=== PATIENT | female | born 1970 | race Caucasian/White ===

== ENCOUNTER 2017-03-28 13:28 | Emergency (ER) | payer MEDICAID ==
[~2017-03-28] VITALS: Ht 175.3 cm; Wt 86.6 kg
[~2017-03-28 13:28] MED LIST: ALBUTEROL-200 PUFFS/ IH; BACTRIM DS 8001 TAB PO; BENADRYL 25MG C25 MG PO; BUSPAR 10MG TAB10 MG PO; CIPRO 500MG TA500 MG PO; CLARITIN10 MG OR; COLACE GENERIC100 MG PO; DARVOCET-N 1001 EACH PO; FLAGYL500 MG PO; KEFLEX 500MG.500 MG PO; LORTAB 5/500 501 TAB PO; LORTAB 7.5/3251 TAB PO; MEDROL 4MG. DOSE4 MG PO; MIRALAX17 GM/PACK PO; MOTRIN 400MG.400 MG PO; NICOTINE T21 MG/24 H TD; NORCO 325 MG-51 TAB PO; PHENERGAN 25MG.25 MG PR; SEPTRA DS 800 M1 TAB PO; TESSALON PERLE100 MG PO; ULTRAM 50 MG TA50 MG PO; VALIUM 10MG TAB10 MG PO; VICODIN 5/500 T1 TAB PO; XANAX 1MG TABLET1 MG PO; ZITHROMAX 250M250 MG PO; ZITHROMAX Z PA250 MG PO
--- OUTSIDE RECORDS SUMMARY | 2017-03-28 13:42 | External Medical Summary Rpt ---
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 Name Role Phone EULALIO BALDWIN PCP [phone] Encounter [facility] [id number] Date(s): 04/20/16 - 04/21/16 [facility] [address] [place] [address]- Discharge Diagnosis: Low back pain Discharge Diagnosis: Osteoarthritis Discharge Diagnosis: Acute UTI Discharge Diagnosis: Musculoskeletal strain Discharge Diagnosis: Radiculopathy Discharge Diagnosis: Leg pain Discharge Disposition: OP Self Care or Home Attending Physician: TAYO PATEL MD Admitting Physician: TAYO PATEL MD Referring Physician: TAYO PATEL MD Reason for Visit BOTH LEGS FROM KNEES DOWN PAIN Vital Signs Most recent 1 2 to oldest [Reference Range]: Temperature Oral Source (04/20/16 9:39 PM) Temperature Fahrenheit Mode (04/20/16 9:39 PM) Temperature, 96.1 Deg F Fahrenheit *LOW* [96.8-99.7 (04/20/16 9:39 PM) Deg F] Clinical 35.6 Deg C Temperature, (04/20/16 9:39 PM) C Peripheral 103 bpm Pulse Rate *HI* [60-100 bpm] (04/20/16 9:39 PM) Respiratory 18 Breaths/Min 18 Breaths/Min Rate [14-20 (04/21/16 3:51 AM) (04/20/16 9:39 PM) Breaths/Min] Blood 131/83 mmHg Pressure (04/20/16 9:39 PM) [90-140/60-9 0 mmHg] Oxygen 98 % Saturation (04/20/16 9:39 PM) [94-100 %] Oxygen Room air Room air Therapy Mode (04/21/16 3:51 AM) (04/20/16 9:39 PM) Problem List Condition Effective Status Health Informant Dates Status Anxiety(Conf Active irmed) Deep vein Active thrombosis(C onfirmed) Depression(C Active onfirmed) Allergies, Adverse Reactions, Alerts Substance Reaction Severity Status codeine Active methylPREDNISolo Active ne Medications ciprofloxacin (Cipro 500 mg oral tablet)1 Tab, Oral, every 12 hours, 10 Day(s), Refills: 0Ordering provider: TAYO PATEL MD meloxicam (Mobic 15 mg oral tablet) 1 Tab, Oral, Every Day, 14 Day(s), Refills: 0 Ordering provider: TAYO PATEL MD phenazopyridine (Pyridium 200 mg oral tablet)1 Tab, Oral, Three Times A Day, 3 Day(s), Refills: 0Ordering provider: TAYO PATEL MD Results GENERAL CHEMISTRY Most recent 1 to oldest [Reference Range]: Sodium Level 141 mmol/L [136-146 (04/20/16 11:23 PM) mmol/L] Potassium 4.3 mmol/L Level (04/20/16 11:23 PM) [3.5-5.1 mmol/L] Chloride 108 mmol/L Level (04/20/16 11:23 PM) [102-112 mmol/L] Carbon 27 mmol/L Dioxide (04/20/16 11:23 PM) Level [21-32 mmol/L] Anion Gap 10 [9-20] (04/20/16 11:23 PM) Glucose 96 mg/dL Level (04/20/16 11:23 PM) [74-106 mg/dL] Blood Urea 13 mg/dL Nitrogen (04/20/16 11:23 PM) [7-22 mg/dL] Creatinine 0.70 mg/dL Level (04/20/16 11:23 PM) [0.55-1.02 mg/dL] eGFR 110 mL/min/1.73m2 [>=60 (04/20/16 11:23 PM) mL/min/1.73m 2] eGFR 91 mL/min/1.73m2 NonAfrican (04/20/16 11:23 PM) [>=60 mL/min/1.73m 2] Bun/Creatini 18.6 ne (04/20/16 11:23 PM) [8.0-20.0] Calcium 8.9 mg/dL Level (04/20/16 11:23 PM) [8.5-10.1 mg/dL] Protein 6.2 Gram/dL Total *LOW* [6.4-8.2 (04/20/16 11:23 PM) Gram/dL] Albumin 3.3 Gram/dL Level *LOW* [3.4-5.0 (04/20/16 11:23 PM) Gram/dL] Globulin 2.9 Gram/dL [1.5-4.5 (04/20/16 11:23 PM) Gram/dL] A/G Ratio 1.1 [1.1-2.5] (04/20/16 11:23 PM) Bilirubin 0.3 mg/dL Total (04/20/16:23 PM) [0.2-1.0 mg/dL] Alk Phos 87 Units/Liter [27-136 (04/20/16 11:23 PM) Units/Liter] AST [5-37 14 Units/Liter Units/Liter] (04/20/16 11:23 PM) ALT [12-78 15 Units/Liter Units/Liter] (04/20/16 11:23 PM) Lipase Level 102 Units/Liter [73-393 (04/20/16 11:23 PM) Units/Liter] HEMATOLOGY Most recent 1 to oldest [Reference Range]: WBC 8.0 K/uL [4.0-10.0 (04/20/16 11:23 PM) K/uL] RBC 4.05 Million/uL [3.93-5.22 (04/20/16 11:23 PM) Million/uL] Hgb 12.6 g/dL [11.2-15.7 (04/20/16 11:23 PM) g/dL] Hct 39.0 % [34.1-44.9 (04/20/16 11:23 PM) %] MCV 96.3 fL [79.0-94.8 *HI* fL] (04/20/16:23 PM) MCH 31.1 pg [25.6-32.2 (04/20/16 11:23 PM) pg] MCHC 32.3 Gram/dL [32.2-36.5 (04/20/16 11:23 PM) Gram/dL] Platelet 196 K/uL Count (8/19/16 11:23 PM) [163-369 K/uL] MPV 10.4 fL [9.4-12.4 (04/20/16 11:23 PM) fL] RDW 13.3 % [11.6-14.4 (04/20/16 11:23 PM) %] Neut % 44.4 % [34.0-71.0 (04/20/16 11:23 PM) %] Neut # 3.53 K/uL [1.56-6.13 (04/20/16 11:23 PM) K/uL] Lymph % 44.7 % [19.3-53.1 (04/20/16 11:23 PM) %] Lymph # 3.56 x10(3)/uL [1.00-3.90 (04/20/16 11:23 PM) x10(3)/uL] [place] % 8.5 % [3.0-9.0 %] (04/20/16 11:23 PM) [place] # 0.68 K/uL [0.16-1.00 (04/20/16 11:23 PM) K/uL] Eos % 1.6 % [0.0-7.0 %] (04/20/16 11:23 PM) Eos # 0.13 x10(3)/uL [0.00-0.80 (04/20/16 11:23 PM) x10(3)/uL] Baso % 0.5 % [0.0-1.5 %] (04/20/16 11:23 PM) Baso # 0.04 x10(3)/uL [0.00-0.20 (04/20/16 11:23 PM) x10(3)/uL] Slide Review No (04/20/16 11:23 PM) IG# 0.02 x10(3)/uL [0.00-0.05 (04/20/16 11:23 PM) x10(3)/uL] IG% 0.30 % [0.00-0.60 (04/20/16 11:23 PM) %] URINALYSIS Most recent 1 to oldest [Reference Range]: Urine Type U CleanCatch (04/20/16 11:14 PM) Urine Color Yellow *NA* (04/20/16 11:14 PM) Urine Clear Appearance (04/20/16 11:14 PM) Urine 1.022 Specific (04/20/16 11:14 PM) [place] [1.005-1.030 ] Urine pH 6.0 Dipstick (04/20/16 11:14 PM) [6.0-8.0] Urine Small Leukocyte *ABN* Esterase (04/20/16 11:14 PM) [Negative] Urine Negative Nitrite (04/20/16 11:14 PM) [Negative] Urine Negative Protein (04/20/16 11:14 PM) Dipstick [Negative] Urine Negative Glucose (04/20/16 11:14 PM) Dipstick [Negative] Urine Negative Ketones (04/20/16 11:14 PM) Dipstick [Negative] Urine 0.2 EU/dL Urobilinogen (04/20/16 11:14 PM) Dipstick Urine Negative Bilirubin (04/20/16 11:14 PM) Dipstick [Negative] Urine Blood Negative Dipstick (04/20/16 11:14 PM) [Negative] Ur WBC 5-10 /HPF *ABN* (04/20/16 11:14 PM) Ur Bacteria 3+ *ABN* (04/20/16 11:14 PM) Ur Mucous 1+ *ABN* (04/20/16 11:14 PM) Ur 5-10 /HPF Epithelial *ABN* Cells (04/20/16 11:14 PM) ENDOCRINOLOGY Most recent 1 to oldest [Reference Range]: HCG Urine Negative Qualitative (04/21/16 12:14 AM) Immunizations No data available for this section Procedures No data available for this section Social History Social History Response Type Smoking Status Current every day smoker; Tobacco Use Within Last Twelve Months Cigarettes; Packs/Tins Daily 1 Assessment and Plan No data available for this section Hospital Discharge Instructions Patient EducationBack Exercises Back Pain, Adult Musculoskeletal Pain Urinary Tract Infection
--- OUTSIDE RECORDS SUMMARY | 2017-03-28 13:42 | External Medical Summary Rpt ---
Author Author [facility] Organization [facility] Address Unknown Phone Unavailable Care Team Providers Care Tailer Out Name Role Phone EULALIO BALDWIN PCP [phone] Encounter [facility] [id number] Date(s): 04/20/16 - 04/21/16 [facility] [address] [place] [address]- [phone] Discharge Diagnosis: Low back pain Discharge Diagnosis: [...] 3.56 x10(3)/uL [1.00-3.90 (04/20/16 11:23 PM) x10(3)/uL] [place] % 8.5 % [3.0-9.0 %] (04/20/16 11:23 PM) [place] # 0.68 K/uL [0.16-1.00 (04/20/16 11:23 PM) [...] PM) Urine 1.022 Specific (04/20/16 11:14 PM) [place] [1.005-1.030 ] Urine pH 6.0 Dipstick (04/20/16 [...]
--- OUTSIDE RECORDS SUMMARY | 2017-03-28 13:48 | External Medical Summary Rpt ---
Demographics Home Phone Preferred Language Japanese Marital Status Unknown Latter Day Affiliation Unknown Race Unknown Ethnic Group Unknown Author Author , [facility] Orosco [facility] Address Unknown Phone [email or web address] Care Team Providers Care Fiberglass Laminator Name Role Phone ALLRAN JR GIANCARLO, ALLRAN Unavailable Unavailable JR GIANCARLO ALLRAN JR GIANCARLO, ALLRAN Unavailable Unavailable JR GIANCARLO ARNOLD, ARNOLD Unavailable Unavailable ARNOLD, ARNOLD Unavailable Unavailable ARNOLD DILMA, ARNOLD Unavailable Unavailable DILMA ARNOLD DILMA, ARNOLD Unavailable Unavailable DILMA JORGE JAM, JORGE JAM Unavailable Unavailable SANTAMARIA, SANTAMARIA Unavailable Unavailable SANTAMARIA ALL, SANTAMARIA ALL Unavailable Unavailable LEO, BAKARI B, Unavailable Unavailable LEO, BAKARI B THOMPSON ALANNA, THOMPSON Unavailable Unavailable ALANNA [facility], Unavailable Unavailable [facility] Unavailable Unavailable [facility], [facility] Unavailable Unavailable [facility], [facility] Unavailable Unavailable LAB, [facility] DEISY JR BEBE, DEISY Unavailable Unavailable JR BEBE YASMIN HOPE, Unavailable Unavailable YASMIN HOPE YASMIN, MICHELET, Unavailable Unavailable YASMIN, MICHELET [place] Un[facility] [place] [facility] Unavailable Unavailable [place] [facility] [place] [facility] Unavailable Unavailable [place], [facility] Ethan GRIFFIN T, Ethan GRIFFIN Unavailable Unavailable T FEEBACK REE, FEEBACK Unavailable Unavailable REE ALEXA, ALEXA Unavailable Unavailable ALEXA JAZMYN, ALEXA Unavailable Unavailable JAZMYN [facility] Unavailable Unavailable [facility], Unavailable Unavailable [facility] Unavailable [facility], [facility] Unavailable Unavailable INC, [facility] DEL REAL AMINA, DEL REAL AMINA Unavailable Unavailable DEL REAL AMINA, DEL REAL AMINA Unavailable Unavailable DEL REAL, JENNI A, Unavailable Unavailable DEL REAL, JENNI A [facility], Unavailable Unavailable [facility] JAUREGUI, JAUREGUI Unavailable Unavailable JAUREGUI AMA, JAUREGUI Unavailable Unavailable AMA [facility] Un[facility], [facility] Unavailable [facility] PAYAL JR DWI, PAYAL Unavailable Unavailable JR DWI SHERWOOD DILMA, SHERWOOD Unavailable Unavailable DILMA LUKING, LUKING Unavailable Unavailable LUKING DANETTE, LUKING Unavailable Unavailable DANETTE LUKING DANETTE, LUKING Unavailable Unavailable DANETTE Greta Dudley MD, Unavailable Unavailable Greta ENGEL, Unavailable Unavailable SELWYN VARGAS, Unavailable Unavailable JACKIE ALLEN, Unavailable Unavailable JACKIE DAVIDSON R HENRY, Unavailable Unavailable Pelon [facility] Un[facility], Un[facility] Un[facility], [facility] Unavailable Unavailable LAB, [facility] PETTEY JAM, PETTEY Unavailable Unavailable JAM PICKLEILANI JR RACHEL, Unavailable Unavailable PICKLESIMER JR RACHEL FLORY TOD, FLORY TOD Unavailable Unavailable RENUSCH TANNER, RENUSCH Unavailable Unavailable TANNER [id number], Unavailable Unavailable [id number] Unavailable Unavailable [id number] [address] [id number], [facility] [address] [address] [id number] SCHULSTEDDI REFUGIO, Unavailable Unavailable SCHULSTAD, REFUGIO SCIFRES ANG, SCIFRES Unavailable Unavailable ANG SHOJAEI-YUNG Unavailable Unavailable JAL, SHOJAEI-YUNG JAL SMALL, OLVIN Price, SMALL, Unavailable Unavailable OLVIN Price SOKAN, ISMAEL O, Unavailable Unavailable SOKAN, ISMAEL O [facility] Un[facility] Unavailable Unavailable [facility], [facility] ESQUEDA DON R, Unavailable Unavailable ESQUEDASUZI NEGRETE R [facility], Unavailable Unavailable [facility] Unavailable Unavailable DEPT [facility] Unavailable [facility]available DEPT [facility] VILMA IV ALL, Unavailable Unavailable VILMA IV ALL RAGLAND, RAGLAND Unavailable [facility]available [facility] Un[facility], Unavailable [facility]available [facility] Purpose Continuity of Care Document - 09-04-2007 through 2016 Problems Code Diagnosis DOS Provider Status [id number] OTHER 02-28-2017 [place] HEADACHE [facility]I SYNDROME C CENTE 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 M5117 INTERVERTEB 02-28-2017 [place] RAL DISC CHIROPRACTI D/O C CENTE W/RADICULOP ATHY LS RGN M542 CERVICALGIA 02-28-2017 [place] [facility]I C CENTE M9906 SEGMENTAL & 02-28-2017 [place] 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[facility] DYSFUNCTION C CENTE LOWER EXTREMITY J029 ACUTE 11-19-2016 [facility] PHARYNGITIS UNSPECIFIED J069 ACUTE UPPER 11-19-2016 [facility] RESPIRATORY INFECTION UNSPECIFIED N764 ABSCESS OF 09-19-2016 [facility] K5289 OTH SPEC 08-28-2016 [facility] NONINFECTIV [facility]ICIANS, Bettie [facility] ITIS & COLITIS K529 NONINFECTIV 08-28-2016 [facility] GASTRO[facility] INC ITIS & COLITIS UNS K5900 CONSTIPATIO 08-28-2016 [place] [facility] U[facility]PECIFIED IMAGING ASS R109 UNSPECIFIED 08-28-2016 [place] ABDOMINAL [facility]ICAL PAIN [facility] R140 ABDOMINAL 08-28-2016 [place] DISTENSION [facility] GASEOUS IM[facility]ING ASS R197 DIARRHEA 08-28-2016 [place] UNSPECIFIED [facility]ICAL IM[facility]ING ASS Z720 TOBACCO USE 08-28-2016 [facility] D259 LEIOMYOMA 06-25-2016 [facility] UNSPECIFIED 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 N852 HYPERTROPHY 06-25-2016 [facility] N920 EXCESS & 06-25-2016 [facility] FREQUENT PHYSICIANS MENSTRUATIO GROUP N W/REGULAR CYCLE N944 PRIMARY 06-25-2016 [facility] DYSMENORRHE PHYSICIANS A GROUP N946 DYSMENORRHE 06-25-2016 [facility] UNSPECIFIED INC N33074 ENCOUNTER 06-21-2016 [facility] PREPROCEDUR INC AL CARIOVASCUL AR EXAM E52852 ENCOUNTER 06-21-2016 [facility] FOR [facility] PREPROCEDUR INC AL LABORATORY EXAM G2581 RESTLESS 06-18-2016 [facility]GS [facility] SYNDROME INC M545 LOW BACK 06-18-2016 [facility] PAIN [facility] B70986 PAIN IN 06-18-2016 [facility] RIGHT LEG PHYSICIANS GROUP S51248 PAIN IN 06-18-2016 [facility] LEFT LEG PHYSICIANS GROUP [id number] PAIN IN LEG 06-18-2016 [facility] UNSPECIFIED INC R202 PARESTHESIA 06-18-2016 [facility] OF SKIN [facility] INC N63 UNSPECIFIED 05-29-2016 [place] [facility] IN MEDICAL BREAST IMAGING ASS M44946 ENCOUNTER 05-23-2016 [facility], PROVIDER RELATIONS ADVOCATE EXAM LLC GENERAL RTN W/O ABNORMAL FIND N951 MENOPAUSAL 05-21-2016 [facility] CLIMACTERIC INC STATES N8320 UNSPECIFIED 05-17-2016 [place] OVARIAN MEDICAL CYSTS IMAGING ASS N938 OTHER SPEC 05-17-2016 [place] ABNORMAL MEDICAL UTERINE & IMAGING ASS VAGINAL BLEEDING I7389 OTHER 04-21-2016 [facility] [place] SPECIFIED [facility]Y PERIPHERAL VASCULAR 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 N390 URINARY 04-20-2016 [facility] INFECTION PHYSI SITE NOT SPECIFIED [id number] STRAIN 04-20-2016 [facility] MUSCLE N EMERGENCY FASCIA & PHYSI TENDON LOW BACK INITIAL Y998 OTHER 04-20-2016 [facility] EXTERNAL N EMERGENCY CAUSE PHYSI STATUS G589 MONONEUROPA 04-13-2016 [facility] DILMA THY UNSPECIFIED Z5181 ENCOUNTER 01-09-2016 [facility] FOR [facility]ICIANS THERAPEUTIC [place] DRUG LEVEL MONITORING Z23852 OTHER LONG 01-09-2016 COMBINED TERM PHYSICIANS CURRENT [place] DRUG THERAPY Z97903 CELLULITIS 01-02-2016 [facility] OF RIGHT PHYSICIANS, UPPER LIMB PLLC [id number] HEAT 12-27-2015 [facility] EXHAUSTION PHYSICIANS, UNSPECIFIED PLLC INITIAL ENCOUNTER X89667 CELLULITIS 11-14-2015 [facility] OF BUTTOCK PHYSICIANS, PLLC Z23 ENCOUNTER 11-07-2015 [facility] FOR DISTRICT IMMUNIZATIO TH DEPT N KHANG Z111 ENCOUNTER 10-07-2015 [facility] SCRE[facility] FOR TH DEPT RESPIRATORY KHANG TUBERCULOSI S N6001 SOLITARY 09-19-2015 [facility] RIGHT IMAGING ASS BREAST N6002 SOLITARY 09-19-2015 [place] CYST OF MEDICAL LEFT BREAST IMAGING ASS Z1239 ENCOUNTER 09-19-2015 [facility] OTHER [facility] SCREENING INC MALIG NEOPLASM BREAST N760 ACUTE 08-09-2015 [facility] VAGINITIS DISTRICT [facility] DEPT KHANG Q24243 ENCOUNTER 08-09-2015 [facility] PROVIDER RELATIONS ADVOCATE EXAM DISTRICT GENERAL RTN [facility] DEPT W/ABNORMAL KHANG FIND N23 UNSPECIFIED 06-04-2015 ARNLYNDA DILMA RENAL COLIC E279 DISORDER OF 06-02-2015 [place] ADRENAL MEDICAL GLAND IMAGING ASS UNSPECIFIED K6389 OTHER 06-02-2015 [place] SPECIFIED MEDICAL DISEASES OF IMAGING ASS INTESTINE V5869 LONG-TERM 12-17-2014 [facility] (CURRENT) PHYSICIANS USE OF [place] OTHER MEDICATIONS 4619 ACUTE 12-02-2014 ARNLYNDA DILMA SINUSITIS, UNSPECIFIED 6828 CELLULITIS 10-04-2014 [facility] AND ABSCESS PHYSICIANS OF OTHER GROUP SPECIFIED SITE 53024 LUMP OR 07-20-2014 [facility] IN [facility] BREAST INC 55375 OTHER 07-20-2014 [place] SPECIFIED MEDICAL DISORDERS IMAGING ASS OF BREAST 62053 UNSPECIFIED 07-06-2014 [facility] ABNORMAL [facility] MAMMOGRAM [facility] DEPT KHANG 3674 PRESBYOPIA 06-14-2014 DEL REAL AMINA 305.1 305.1 05-15-2013 Jones TOBACCO USE [facility] 466.0 466.0 ACUTE 05-15-2013 [facility] BRONCHITIS [facility] 511.0 511.0 05-15-2013 [facility] PLEURISY [facility] W/O EFFUS Hospital OR TB V14.8 V14.8 05-15-2013 [facility] HX-DRUG [facility] ALLERGY [facility] 31239 INSOMNIA 10-02-2010 [facility] 21644 OBESITY, 09-29-2010 [place] [facility] UNSPECIFIED SERV [facility] 4778 ALLERGIC 09-29-2010 [place] [facility] RHINITIS SERV DUE TO [facility] OTHER ALLERGEN 4918 OTHER 09-29-2010 [place] [facility] CHRONIC SERV BRONCHITIS [facility] 43694 ESOPHAGEAL 09-29-2010 [place] [facility] REFLUX SERV [facility] 5589 OTH&UNSPEC 09-15-2010 [facility] DILMA NONINFECTIO US GASTROENTER ITIS&COLITI S 5693 HEMORRHAGE 09-15-2010 [facility] DILMA OF RECTUM AND ANUS 63545 ABDOMINAL 09-09-2010 [place] PAIN, MEDICAL UNSPECIFIED IMAGING ASS SITE 7831 ABNORMAL 09-08-2010 [facility] 79643 SHORTNESS 09-08-2010 [facility] OF BREATH [facility] INC 05206 OTHER 09-08-2010 [place] [facility] DYSPNEA AND SERV FOUND[facility]IO RESPIRATORY ABNORMALITI ES 7862 COUGH 09-08-2010 [place] [facility] 85871 OBSTRUCTIVE 08-18-2010 NIC[facility] PERERA CHRONIC BRONCHITIS WITH EXACERBATIO N 7099 UNSPECIFIED 08-10-2010 MARY JO MAHARAJ DISORDER GIANCARLO OF SKIN&SUBCUT ANEOUS TISSUE 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 74956 GANGLION OF 06-20-2010 [facility] TENDON PHYSICIANS SHEATH GROUP 97274 UNSPECIFIED 06-20-2010 [facility] PERERA GANGLION 4660 ACUTE 05-11-2010 [facility] PERERA BRONCHITIS 6826 CELLULITIS 05-25-2008 SCHULSTAD, AND ABSCESS REFUGIO OF LEG EXCEPT FOOT 7062 SEBACEOUS 05-25-2008 SCHULSTAD, CYST REFUGIO 81792 UNSPECIFIED 05-20-2008 [facility]OD[facility]MA [facility] 5110 PLEURISY 04-11-2008 [facility] WITHOUT [facility] [place]ENT[place] EFFUS/[place] [address] CHEST PAIN 04-11-2008 [place] UNSPECIFIED [facility] 31134 ACHILLES 03-10-2008 [facility] BURSITIS OR ASSOCIATES TENDINITIS 32422 OTHER ANKLE 03-09-2008 [employer] [facility] [employer] 07456 PAIN IN 02-08-2008 [facility] JOINT, MEM HOSP MULTIPLE INC SITES 09871 OVERWEIGHT 02-07-2008 [place] R 360[address] UNSPEC 02-07-2008 ESQUEDA, POLYARTHROP SUZI Bird ATHY/POLYAR THRIT OT SPEC SITE 03523 ASTHMA, 11-27-2007 [facility] UNSPECIFIED HOME MED , [facility] UNSPECIFIED STATUS 5990 URINARY 10-31-2007 [facility] INFECTION PHYS INC SITE NOT SPECIFIED 11784 OTHER 10-31-2007 [facility] MALAISE AND N EMERGENCY FATIGUE PHYS INC 56829 VOMITING 10-31-2007 [facility] ALONE N EMERGENCY PHYS INC 7856 ENLARGEMENT 10-23-2007 [facility] PROF SERV 3670 HYPERMETROP 10-14-2007 YAJAIRA DEL REAL 9479 UNSPECIFIED 09-24-2007 [facility] DISORDER HEALTH OF LIPOID CENTRAL METABOLISM BANK ACCT V771 SCREENING 09-24-2007 [facility] FOR HEALTH DIABETES CENTRAL MELLITUS BANK ACCT 2489 ACUTE URIS 09-18-2007 [facility] OF N EMERGENCY UNSPECIFIED PHYS INC SITE 26922 PAIN IN 09-18-2007 [facility] [place] JOINT, RADIOLOGY ANKLE AND FOOT 98781 CONTUSION 09-18-2007 [facility] OF FOOT N EMERGENCY PHYS INC E8881 FALL 09-18-2007 [facility] RESULTING N EMERGENCY IN STRIKING PHYS INC AGAINST OTHER OBJECT 2662 OTHER 09-16-2007 [facility] B-COMPLEX HEALTH DEFICIENCIE [facility] ACCT V700 ROUTINE 09-16-2007 [facility] EXAM@[facility] ACCT CARE FACL 4538 ACUTE 09-04-2007 [facility] THROMBOSIS [facility] OT SPECIFIED VEINS 7295 PAIN IN 09-04-2007 [facility] [place] SOFT RADIOLOGY TISSUES OF LIMB K52.9 NONINFECTIV E GASTROENTER ITIS AND COLITIS, UNSPECIFIED L02.214 CUTANEOUS ABSCESS OF GROIN L03.317 CELLULITIS OF BUTTOCK L03.90 CELLULITIS, UNSPECIFIED M54.9 DORSALGIA, UNSPECIFIED S20.219A CONTUSION OF UNSPECIFIED FRONT WALL OF THORAX, INIT ENCNTR T67.5XXA HEAT EXHAUSTION, UNSPECIFIED , INITIAL ENCOUNTER W57.XXXA BIT/STUNG BY NONVENOM INSECT \T\ OTH NONVENOM ARTHROPODS, INIT Allergies, Adverse Reactions, Alerts Type Drug Allergy Adverse Reaction to Substance Substance Reaction Severity Corticosteroid Unknown Unknown Codeine Unknown Unknown Methylprednisolone Unknown Unknown Medications Na ND Rx Da Fi Fi Am Da Di Ph RX Ph St me C No te ll ll ou ys ag ar # ys at rm s nt no ma ic us Or Da si cy ia de te s n re d 51 06 07 4. 28 00 HO Ac T 99 -0 -0 00 00 ME ti D2 10 1- 7- 0 06 TO ve 60 20 20 07 WN 1. 40 17 17 49 25 1 48 PH AR MG MA CY (5 0, OF 00 0 CY UN NT IT HI ) AN A CY 00 06 07 1. 28 00 HO Ac AN 51 -0 -0 00 00 ME ti OC 70 1- 7- 0 06 TO ve OB 03 20 20 07 WN AL 12 17 17 50 AM 5 52 PH IN AR MA 1, CY 00 0 OF MC G/ CY ML NT HI AN A AL 59 05 06 60 30 00 HO Ac IL 76 -3 -3 .0 00 ME ti AZ 23 1- 0- 00 04 TO ve OL 72 20 20 02 WN AM 20 17 17 30 2 3 05 PH AR MG MA CY TA BL OF ET CY NT HI AN A HY 00 05 06 [address] 18 -3 -3 .0 00 ME ti OX 50 1- 0- 00 06 TO ve YZ 67 20 20 08 WN IN 40 17 17 80 E 5 62 PH PA AR M MA 25 CY MG OF CA CY P NT HI AN A AL 59 05 06 60 30 00 HO Ac IL 76 -0 -0 .0 00 ME ti AZ 23 3- 2- 00 04 TO ve OL 72 20 20 02 WN AM 20 17 17 25 2 3 86 PH AR MG MA CY TA BL OF ET CY NT HI AN A CY 00 05 06 1. 28 00 HO Ac AN 51 -0 -0 00 00 ME ti OC 70 3- 2- 0 06 TO ve OB 03 20 20 07 WN AL 12 17 17 50 AM 5 52 PH IN AR MA 1, CY 00 0 OF MC G/ CY ML NT HI AN A AL 59 04 05 28 14 00 HO Ac IL 76 -2 -2 .0 00 ME ti AZ 23 6- 6- 00 04 TO ve OL 72 20 20 02 WN AM 00 17 17 24 4 69 PH 0. AR 5 MA MG CY TA OF BL ET CY NT HI AN A ES 68 04 05 14 14 00 HO Ac CI 00 -2 -2 .0 00 ME ti TA 10 6- 6- 00 06 TO ve LO 19 20 20 08 WN IL 60 17 17 59 AM 3 02 PH AR 10 MA CY MG OF TA BL CY ET NT HI AN A HY 00 04 05 [address] 18 -2 -2 .0 00 ME ti OX 50 6- 6- 00 06 TO ve YZ 67 20 20 08 WN IN 40 17 17 59 E 5 03 PH PA AR M MA 25 CY MG OF CA CY P NT HI AN A 51 04 05 4. 28 00 HO Ac T 99 -0 -1 00 00 ME ti D2 10 6- 2- 0 06 TO ve 60 20 20 07 WN 1. 40 17 17 49 25 1 48 PH AR MG MA CY (5 0, OF 00 0 CY UN NT IT HI ) AN A CY 70 04 05 1. 28 00 HO Ac AN 06 -0 -1 00 00 ME ti OC 90 6- 2- 0 06 TO ve OB 00 20 20 07 WN AL 50 17 17 50 AM 1 52 PH IN AR MA 1, CY 00 0 OF MC G/ CY ML NT HI AN A PO 62 03 04 52 30 00 HO Ac LY 17 -1 -2 7. 00 ME ti ET 50 6- 1- 00 06 TO ve HY 44 20 20 0 07 WN LE 23 17 17 50 NE 1 41 PH AR GL MA YC CY OL OF 33 50 CY NT PO HI WD AN A 51 03 04 4. 28 00 HO Ac T 99 -0 -0 00 00 ME ti D2 10 7- 7- 0 06 TO ve 60 20 20 07 WN 1. 40 17 17 49 25 1 48 PH AR MG MA CY (5 0, OF 00 0 CY UN NT IT HI ) AN A CY 00 03 04 1. 28 00 HO Ac AN 51 -0 -0 00 00 ME ti OC 70 7- 7- 0 06 TO ve OB 03 20 20 07 WN AL 12 17 17 50 AM 5 52 PH IN AR MA 1, CY 00 0 OF MC G/ CY ML NT HI AN A 51 01 03 4. 28 00 HO Ac T 99 -3 -0 00 00 ME ti D2 10 1- 3- 0 06 TO ve 60 20 20 07 WN 1. 40 17 17 49 25 1 48 PH AR MG MA CY (5 0, OF 00 0 CY UN NT IT HI ) AN A CY 00 01 03 1. 28 00 HO Ac AN 51 -3 -0 00 00 ME ti OC 70 1- 3- 0 06 TO ve OB 03 20 20 07 WN AL 12 17 17 50 AM 5 52 PH IN AR MA 1, CY 00 0 OF MC G/ CY ML NT HI AN A AZ 68 01 02 6. 5 00 HO Ac IT 18 -0 -1 00 00 ME ti HR 00 5- 0- 0 06 TO ve OM 16 20 20 07 WN YC 01 17 17 86 IN 3 07 PH AR 25 MA 0 CY MG OF TA BL CY ET NT HI AN A AZ 68 12 02 6. 5 00 HO Ac IT 18 -3 -0 00 00 ME ti HR 00 0- 3- 0 06 TO ve OM 16 20 20 07 WN YC 01 16 17 86 IN 3 07 PH AR 25 MA 0 CY MG OF TA BL CY ET NT HI AN A CE 68 01 02 20 10 00 HO Ac FD 00 -0 -0 .0 00 ME ti IN 10 2- 3- 00 06 TO ve IR 15 20 20 07 WN 00 17 17 86 30 6 31 PH 0 AR MG MA CY CA PS OF UL E CY NT HI AN A 51 01 02 4. 28 00 HO Ac T 99 -0 -0 00 00 ME ti D2 10 2- 3- 0 06 TO ve 60 20 20 07 WN 1. 40 17 17 49 25 1 48 PH AR MG MA CY (5 0, OF 00 0 CY UN NT IT HI ) AN A CY 00 01 02 1. 28 00 HO Ac AN 51 -0 -0 00 00 ME ti OC 70 2- 3- 0 06 TO ve OB 03 20 20 07 WN AL 12 17 17 50 AM 5 52 PH IN AR MA 1, CY 00 0 OF MC G/ CY ML NT HI AN A BU 00 12 01 90 30 00 HO Ac SP 59 -1 -2 .0 00 ME ti IR 10 9- 0- 00 06 TO ve ON 65 20 20 07 WN E 80 16 17 78 HC 5 46 PH L AR 10 MA CY MG OF TA BL CY ET NT HI AN A VE 00 12 01 18 18 00 HO Ac NT 17 -1 -2 .0 00 ME ti OL 30 9- 0- 00 06 TO ve IN 68 20 20 07 WN 22 16 17 10 HF 0 52 PH A AR 90 MA CY MC G OF IN MERCADO CY LE NT R HI AN A 51 12 01 4. 28 00 HO Ac T 99 -0 -0 00 00 ME ti D2 10 6- 9- 0 06 TO ve 60 20 20 07 WN 1. 40 16 17 49 25 1 48 PH AR MG MA CY (5 0, OF 00 0 CY UN NT IT HI ) AN A CY 00 12 01 1. 30 00 HO Ac AN 51 -0 -0 00 00 ME ti OC 70 6- 9- 0 06 TO ve OB 03 20 20 07 WN AL 12 16 17 50 AM 5 52 PH IN AR MA 1, CY 00 0 OF MC G/ CY ML NT HI AN A KE 00 09 0 No TO 40 -1 RO 93 3- Lo LA 79 20 ng C 50 13 er 30 1 Ac MG ti /M ve L AL TR 00 09 0 No AM 09 -1 AD 30 3- Lo OL 05 20 ng 80 13 er 50 1H MG Ac ti TA ve BL ET TA KE HO ME CE 00 09 0 No FT 40 -1 RI 97 3- Lo AX 33 20 ng ON 30 13 er E 4 1 Ac GM ti ve AL SO 00 09 0 No DI 40 -1 UM 97 3- Lo 10 20 ng CH 16 13 er LO 6 RI Ac DE ti ve 0. 9% SO LN DI 00 01 01 1 60 15 EA 20 AR Ac CY 59 -1 -[address] 80 NO ti CL 10 4- 4- 00 SI 87 LD ve OM 79 20 20 DE IN 50 11 11 RI E 1 PH CH 20 AR AR MA D MG CY W TA OF BL ET CY NT HI AN A 53 01 01 30 5 RI 86 AR Ac 74 -1 -1 .0 TE 61 NO ti 60 2- 2- 00 09 LD ve 11 20 20 AI 11 11 11 D RI 0 PH CH AR AR MA D CY W 03 93 8 # 03 93 CI 65 01 01 14 7 RI 86 GA Ac IL 86 -0 -0 .0 TE 56 IN ti OF 20 8 8- 00 43 EY ve LO 07 20 20 AI XA 70 11 11 D MD CI 1 PH CH N AR AE HC MA L L CY S 50 0 03 MG 93 8 TA # B 03 93 ME 50 01 01 21 7 RI 86 GA Ac TR 11 -0 -0 .0 TE 56 IN ti ON 10 8 00 44 EY ve ID 33 20 20 AI AZ 40 11 11 D MD OL 1 PH CH E AR AE 50 MA L 0 CY S MG 03 TA 93 BL 8 ET # 03 93 53 01 01 8. 2 RI 86 GA Ac 74 -0 -0 00 TE 56 IN ti 60 8- 8- 0 45 EY ve 11 20 20 AI 11 11 11 D MD 0 PH CH AR AE MA L CY S 03 93 8 # 03 93 NA 00 01 01 5 17 30 RI 86 MC Ac SO 08 -0 -0 .0 TE 53 CO ti NE 51 6- 6- 00 58 RM ve X 28 20 20 AI IC 50 80 11 11 D K 1 PH JA MC AR ME G MA S NA CY R SA L 03 SP 93 RA 8 Y # 03 93 CL 00 10 01 5 90 30 RI 85 AR Ac ON 09 -0 -0 .0 TE 28 NO ti AZ 30 6- 4- 00 72 LD ve EP 83 20 20 AI AM 30 10 11 D RI 1 1 PH CH AR AR MG MA D CY W TA BL 03 ET 93 8 # 03 93 AM 00 12 12 1 30 10 EA 20 AR Ac OX 78 -1 -[address] 44 NO ti IC 12 7- 7- 00 SI 33 LD ve IL 61 20 20 DE LI 30 10 10 RI N 5 PH CH 50 AR AR 0 MA D MG CY W CA OF PS UL CY E NT HI AN A DI 00 12 12 1 60 20 EA 20 AR Ac CL 78 -1 -[address] 44 NO ti OF 11 7- 7- 00 SI 34 LD ve EN 78 20 20 DE AC 90 10 10 RI 1 PH CH SO AR AR D MA D EC CY W 75 OF MG CY NT TA HI B AN A 60 12 12 1 24 6 EA 20 AR Ac 25 -1 -[address] 44 NO ti 80 7- 7- 00 SI 35 LD ve 23 20 20 0 DE 91 10 10 RI 6 PH CH AR AR MA D CY W OF CY NT HI AN A 59 12 12 12 8. 20 EA 20 AR Ac 31 -1 -[address] 44 NO ti 00 7- 7- 0 SI 36 LD ve 57 20 20 DE 92 10 10 RI 0 PH CH AR AR MA D CY W OF CY NT HI AN A 00 12 12 0 28 28 EA 20 AR Ac 06 -1 -[address] 44 NO ti 90 7- 7- 00 SI 37 LD ve 47 20 20 DE 19 10 10 RI 7 PH CH AR AR MA D CY W OF CY NT HI AN A CL 00 10 12 5 90 30 RI 85 AR Ac ON 09 -0 -0 .0 TE 28 NO ti AZ 30 6- 5- 00 72 LD ve EP 83 20 20 AI AM 30 10 10 D RI 1 1 PH CH AR AR MG MA D CY W TA BL 03 ET 93 8 # 03 93 CL 00 10 11 5 90 30 RI 85 AR Ac ON 09 -0 -0 .0 TE 28 NO ti AZ 30 6- 5- 00 72 LD ve EP 83 20 20 AI AM 30 10 10 D RI 1 1 PH CH AR AR MG MA D CY W TA BL 03 ET 93 8 # 03 93 CI 13 10 10 5 15 30 RI 85 AR Ac TA 66 -0 -0 .0 TE 28 NO ti LO 80 6- 6- 00 71 LD ve IL 01 20 20 AI AM 10 10 10 D RI 1 PH CH HB AR AR R MA D 40 CY W MG 03 93 TA 8 BL # ET 03 93 CL 00 10 10 5 90 30 RI 85 AR Ac ON 09 -0 -0 .0 TE 28 NO ti AZ 30 6- 6- 00 72 LD ve EP 83 20 20 AI AM 30 10 10 D RI 1 1 PH CH AR AR MG MA D CY W TA BL 03 ET 93 8 # 03 93 HY 00 07 10 1 60 30 RI [address] 18 -2 -0 .0 TE 33 RA ti OX 50 7- 2- 00 02 BE ve YZ 61 20 20 AI RG IN 30 10 10 D E 1 PH DA PA AR M MA D 25 CY MG 03 93 CA 8 P # 03 93 PE 00 09 09 1 60 7 RI 84 AR Ac NI 09 -0 -1 .0 TE 86 NO ti CI 31 5- 4- 00 22 LD ve LL 17 20 20 AI IN 20 10 10 D RI 1 PH CH VK AR AR MA D 25 CY W 0 MG 03 93 TA 8 BL # ET 03 93 PE 00 09 09 1 60 7 RI 84 AR Ac NI 09 -0 -0 .0 TE 86 NO ti CI 31 5- 5- 00 22 LD ve LL 17 20 20 AI IN 20 10 10 D RI 1 PH CH VK AR AR MA D 25 CY W 0 MG 03 93 TA 8 BL # ET 03 93 IL 00 09 09 1 18 8 RI 84 AR Ac OM 60 -0 -0 0. TE 86 NO ti ET 31 5- 5- 00 23 LD ve MERCADO 58 20 20 0 AI ZI 65 10 10 D RI NE 4 PH CH -D AR AR M MA D SY CY W RU P 03 93 8 # 03 93 CL 00 06 09 2 90 30 RI 84 GI Ac ON 09 -1 -0 .0 TE 86 LL ti AZ 30 1- 5- 00 21 IA ve EP 83 20 20 AI M AM 30 10 10 D JA 1 1 PH I AR H MG MA CY TA BL 03 ET 93 8 # 03 93 59 09 09 11 8. 23 EA 18 AR Ac 31 -0 -[address] 94 NO ti 00 1- 1- 0 SI 81 LD ve 57 20 20 DE 92 10 10 RI 0 PH CH AR AR MA D CY W OF CY NT HI AN A CI 55 09 09 1 20 10 EA 18 AR Ac IL 11 -0 -[address] 94 NO ti OF 10 1- 1- 00 SI 83 LD ve LO 12 20 20 DE XA 70 10 10 RI CI 5 PH CH N AR AR HC MA D L CY W 50 0 OF MG CY TA NT B HI AN A 60 09 09 2 24 5 EA 18 AR Ac 25 -0 -[address] 94 NO ti 80 1- 1- 00 SI 84 LD ve 23 20 20 0 DE 91 10 10 RI 6 PH CH AR AR MA D CY W OF CY NT HI AN A AGUERO 53 08 08 1 20 10 EA 18 AR Ac LF 74 -2 -[address] 87 NO ti AM 60 7- 7- 00 SI 70 LD ve ET 27 20 20 DE HO 20 10 10 RI XA 5 PH CH ZO AR AR LE MA D -T CY W MP OF DS CY TA NT BL HI ET AN A CE 45 08 08 5 30 30 EA 18 AR Ac TI 80 -2 -[address] 87 NO ti RI 20 7- 7- 00 SI 71 LD ve ZI 91 20 20 DE NE 98 10 10 RI 7 PH CH HC AR AR L MA D 10 CY W MG OF TA CY BL NT ET HI AN A 00 09 10 00 20 4 EA 99 No Ac 59 -2 -[address] 59 t ti 10 3- 9- 00 SI 20 Av ve 34 20 20 DE ai 90 08 08 la 1 PH bl AR e MA CY OF CY NT HI AN A CE 00 09 09 00 40 10 EA 99 No Ac PH 09 -1 -[address] 53 t ti AL 33 8- 6- 00 SI 23 Av ve EX 14 20 20 DE ai IN 70 08 08 la 1 PH bl 50 AR e 0 MA MG CY CA OF PS CY UL NT E HI AN A 00 09 09 00 10 3 EA 99 No Ac 59 -1 -[address] 53 t ti 10 8- 6- 00 SI 22 Av ve 34 20 20 DE ai 90 08 08 la 1 PH bl AR e MA CY OF CY NT HI AN A DI 00 08 09 00 30 10 RI 74 BU Ac AZ 17 -2 -1 .0 TE 75 RG ti EP 23 9- 1- 00 71 ES ve AM 92 20 20 AI S 5 67 08 08 D KE 0 PH LL MG AR Y M TA #3 BL 93 ET 8 AZ 59 08 08 00 6. [address] Ac IT 76 -1 -2 00 TE 52 EP ti HR 23 3- 8- 0 04 HE ve OM 06 20 20 AI NS YC 00 08 08 D IN 1 PH DO AR N 25 M R 0 #3 MG 93 8 TA BL ET CI 00 08 08 00 14 7 RI 74 GA Ac IL 17 -1 -2 .0 TE 49 IN ti OF 25 0- 8- 00 59 EY ve LO 31 20 20 AI XA 26 08 08 D MD CI 0 PH CH N AR AE HC M L L #3 S 50 93 0 8 MG TA B DI 00 07 08 00 20 6 RI 74 BU Ac AZ 17 -2 -1 .0 TE 32 RG ti EP 23 9- 4- 00 53 ES ve AM 92 20 20 AI S 5 67 08 08 D KE 0 PH LL MG AR Y M TA #3 BL 93 ET 8 DI 00 06 07 00 20 7 RI 73 BU Ac AZ 17 -3 -1 .0 TE 94 RG ti EP 23 0- 7- 00 83 ES ve AM 92 20 20 AI S 5 67 08 08 D KE 0 PH LL MG AR Y M TA #3 BL 93 ET 8 00 07 07 00 15 2 RI 74 SO Ac 40 -0 -1 .0 TE 06 KA ti 60 8- 7- 00 43 N ve 35 20 20 AI BA 70 08 08 D BA 5 PH TU AR ND M E #3 O 93 8 DI 00 04 05 00 20 7 RI 73 No Ac AZ 17 -3 -0 .0 TE 11 t ti EP 23 0- 8- 00 93 Av ve AM 92 20 20 AI ai 5 67 08 08 D la 0 PH bl MG AR e M TA #3 BL 93 ET 8 00 04 04 00 24 2 RI 72 No Ac 40 -1 -2 .0 TE 94 t ti 60 7- 4- 00 25 Av ve 35 20 20 AI ai 70 08 08 D la 5 PH bl AR e M #3 93 8 AM 00 03 04 00 30 10 RI 72 No Ac OX 09 -1 -1 .0 TE 42 t ti IC 33 3- 7- 00 72 Av ve IL 10 20 20 AI ai LI 90 08 08 D la N 5 PH bl 50 AR e 0 M MG #3 93 CA 8 PS UL E IL 60 03 04 00 4. 6 RI 72 No Ac OM 43 -1 -1 00 TE 42 t ti ET 20 3- 7- 0 73 Av ve MERCADO 60 20 20 AI ai ZI 40 08 08 D la NE 4 PH bl -D AR e M M SY #3 RU 93 P 8 ME 00 03 04 00 21 6 RI 72 No Ac TH 60 -2 -1 .0 TE 61 t ti YL 34 6- 0- 00 34 Av ve IL 59 20 20 AI ai ED 31 08 08 D la NI 5 PH bl SO AR e LO M NE #3 4 93 8 MG DO SE PK DI 00 03 04 00 20 6 RI 72 No Ac AZ 17 -3 -1 .0 TE 68 t ti EP 23 1- 0- 00 31 Av ve AM 92 20 20 AI ai 5 67 08 08 D la 0 PH bl MG AR e M TA #3 BL 93 ET 8 CI 00 03 04 00 20 10 RI 72 No Ac IL 17 -2 -1 .0 TE 61 t ti OF 25 6- 0- 00 35 Av ve LO 31 20 20 AI ai XA 26 08 08 D la CI 0 PH bl N AR e HC M L #3 50 93 0 8 MG TA B AL 00 03 04 00 36 30 YO 15 No Ac BU 48 -2 -1 0. UR 82 t ti TE 79 7- 0- 00 4 Av ve RO 50 20 20 0 PH ai L 16 08 08 AR la AGUERO 0 MA bl L CY e 2. 5 MG /3 [address] CE 00 02 04 00 40 10 RI 72 No Ac PH 09 -2 -0 .0 TE 14 t ti AL 33 4- 7- 00 63 Av ve EX 14 20 20 AI ai IN 70 08 08 D la 1 PH bl 50 AR e 0 M MG #3 93 CA 8 PS UL E CI 00 03 04 00 10 5 RI 72 No Ac IL 17 -0 -0 .0 TE 30 t ti OF 25 4- 7- 00 21 Av ve LO 31 20 20 AI ai XA 26 08 08 D la CI 0 PH bl N AR e HC M L #3 50 93 0 8 MG TA B IL 00 03 04 00 8. 2 RI 72 No Ac OM 60 -0 -0 00 TE 30 t ti ET 35 4- 7- 0 22 Av ve MERCADO 43 20 20 AI ai ZI 82 08 08 D la NE 1 PH bl AR e 25 M #3 MG 93 8 TA BL ET DI 00 02 04 00 20 10 RI 72 No Ac AZ 17 -2 -0 .0 TE 24 t ti EP 23 9- 7- 00 12 Av ve AM 92 20 20 AI ai 5 67 08 08 D la 0 PH bl MG AR e M TA #3 BL 93 ET 8 00 02 03 00 60 30 RI 71 No Ac 09 -0 -2 .0 TE 79 t ti 35 1- 6- 00 08 Av ve 50 20 20 AI ai 20 08 08 D la 1 PH bl AR e M #3 93 8 DI 00 02 03 00 20 20 RI 71 No Ac AZ 17 -0 -2 .0 TE 79 t ti EP 23 1- 6- 00 07 Av ve AM 92 20 20 AI ai 5 67 08 08 D la 0 PH bl MG AR e M TA #3 BL 93 ET 8 IL 00 01 03 00 12 8 RI 71 No Ac OM 60 -1 -2 0. TE 57 t ti ET 31 8- 5- 00 19 Av ve MERCADO 58 20 20 0 AI ai ZI 75 08 08 D la NE 8 PH bl AR e VC M #3 SY 93 RU 8 P DI 00 01 03 00 20 20 RI 71 No Ac AZ 17 -0 -2 .0 TE 35 t ti EP 23 4- 4- 00 50 Av ve AM 92 20 20 AI ai 5 67 08 08 D la 0 PH bl MG AR e M TA #3 BL 93 ET 8 Immunization Name Date Rout CVX Reac Dose Comm Prov Is Faci e tion ent ider Refu lity Give sed n [facility]PB 03-0 43 [facility] No [facility] 7-20 O O VACC 16 DIST DIST INE RICT RICT ADUL T 3 HLTH HLTH DOSE DEPT DEPT SCHE KHANG KHANG DULE FOR IM USE Vital Signs 05-15-2013 02:45 Name Value Interpretat Reference Comment ion Range BP 74 mm[Hg] Diastolic BP Systolic 138 mm[Hg] Heart 83 /min Rate/Pulse O2% 97 % Respiratory 20 /min Rate 05-15-2013 01:30 Name Value Interpretat Reference Comment ion Range BP 70 mm[Hg] Diastolic BP Systolic 137 mm[Hg] Heart 79 /min Rate/Pulse Respiratory 20 /min Rate 05-15-2013 00:57 Name Value Interpretat Reference Comment ion Range O2% 98 % Results Labs Lab Lab Date Result Refere Interp Status Commen Order Detail nces retati t Range on CHLAMYDIA AND GONORRHEA TESTING (08-09-2015 14:15) Chlamyd NEGATIV complet ia 015 E ed trachom 14:15 atis rRNA [Presen ce] in Unspeci fied specime n by Probe & target amplifi cation method Neisser NEGATIV complet ia 015 E ed gonorrh 14:15 oeae rRNA [Presen ce] in Unspeci fied specime n by Probe & target amplifi cation method CHLAMYDIA AND GONORRHEA TESTING (08-09-2015 14:15) COLLECT RUDDY complet OR 015 JIMENEZ, ed 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, complet TY 015 NON-HIS ed 14:15 PANIC KIT complet EXPIRAT 015 016 ed ION 14:15 DATE SYMPTOM YES complet S 015 ed 14:15 REASON REVISIT complet FOR 015 /ANNUAL ed REQUEST 14:15 FAMILY TESSA G VISIT SPECIME URINE complet N 015 ed SOURCE 14:15 PREGNAN NO complet T 015 ed 14:15 CHART [id number] complet NUMBER 015 88 ed 14:15 Chlamyd Pending complet ia 015 ed trachom 14:15 atis rRNA [Presen ce] in Unspeci fied specime n by Probe & target amplifi cation method Neisser Pending complet ia 015 ed gonorrh 14:15 oeae rRNA [Presen ce] in Unspeci fied specime n by Probe & target amplifi cation method COMPREHENSIVE METABOLIC PANEL (05-15-2013 01:10) Glucose 84 74-106 complet 013 mg/dL ed Bld-mCn 01:10 c BUN 13 7-18 complet Bld-mCn 013 mg/dL ed c 01:10 Creat 0.8 0.6-1.0 complet SerPl-m 013 mg/dL ed Cnc 01:10 ESTIMAT 126 50-200 complet ED 013 ML/MIN ed CREATIN 01:10 INE CLEARAN CE GFR 79 59- complet (ESTIMA 013 ML/MIN ed TRINA) 01:10 Sodium 139 136-145 complet SerPl-s 013 mmoL/L ed Cnc 01:10 Potassi 3.8 3.5-5.1 complet um 013 mmoL/L ed SerPl-s 01:10 Cnc Chlorid 104 98-107 complet e 013 mmoL/L ed SerPl-s 01:10 Cnc CO2 05-15- 26 21.0-32 complet SerPl-s 013 mmoL/L .0 ed Cnc 01:10 Calcium 05-15- 8.5 8.5-10. complet 013 mg/dL 1 ed SerPl-m 01:10 Cnc Prot 05-15- 7.2 6.4-8.2 complet SerPl-m 013 gm/dL ed Cnc 01:10 Albumin 3.7 3.4-5.0 complet 013 gm/dL ed SerPl-m 01:10 Cnc Globuli 05-15-2 3.5 1.3-3.2 complet n 013 gm/dL ed Ser-mCn 01:10 c Albumin 05-15-2 1.1 UNK 1.1-1.8 complet /Glob 013 ed SerPl-m 01:10 Rto Bilirub 2 0.2 0.2-1.0 complet 013 mg/dL ed SerPl-m 01:10 Cnc AST 11 U/L 15-37 complet SerPl-c 013 ed Cnc 01:10 ALT 05-15-2 27 U/L 30-65 complet SerPl-c 013 ed Cnc 01:10 ALP 116 U/L 50-136 complet SerPl-c 013 ed Cnc 01:10 CBC with AUTO DIFF (05-15-2013 01:10) WBC # 05-15-2 10.6 4.8-10. complet Bld 013 K/MM3 8 ed Auto 01:10 RBC # 05-15-2 4.28 4.2-5.4 complet Bld 013 M/mm3 ed Auto 01:10 Hgb 05-15-2 13.3 12.2-16 complet Bld-mCn 013 g/dL .2 ed c 01:10 Hct Fr 40.8 % 37.0-47 complet Bld 013 .0 ed 01:10 MCV RBC 05-15-2 95.2 fl 82.2-97 complet 013 .8 ed 01:10 MCH RBC 05-15-2 31.1 pg 27-31.2 complet Qn 013 ed Auto 01:10 MEAN 05-15- 32.6 31.8-35 complet CORPUSC 013 g/dl .4 ed ULAR 01:10 HGB CONC RDW RBC 05-15-2 14.5 % 11.5-17 complet Auto 013 .5 ed 01:10 Platele 05-15-2 195 142-424 complet t Bld 013 K/mm3 ed Ql 01:10 Manual MEAN 05-15-2 7.9 fl 7.4-10. complet PLATELE 013 4 ed T 01:10 VOLUME Granulo 05-15-2 65.0 % 37.0-80 complet cytes 013 .0 ed Fr Bld 01:10 Auto LYMPH % 05-15-2 27.8 % 10-50.0 complet 013 ed 01:10 Monocyt -13-2 5.5 % 1.7-9.3 complet es Fr 013 ed Bld 01:10 Auto Eosinop 09-13-2 1.2 % 0.1-12. complet hil Fr 013 0 ed Bld 01:10 Auto Basophi 09-13-2 0.4 % 0.1-2.0 complet ls Fr 013 ed Bld 01:10 Auto Granulo -13-2 6.9 1.8-7.8 complet cytes # 013 K/mm3 ed Bld 01:10 Auto Lymphoc -13-2 2.9 0.7-4.5 complet ytes Fr 013 K/mm3 ed Bld 01:10 Auto Monocyt -13-2 0.6 0.1-1.0 complet es # 013 K/mm3 ed Bld 01:10 Auto Eosinop -13-2 0.1 0.0-0.4 complet hil # 013 K/mm3 ed Bld 01:10 Auto Basophi -13-2 0.0 0-0.2 complet ls # 013 K/MM3 ed Bld 01:10 Auto Procedures Procedure DOS Code Location Performer Comment [facility] [address] [place] MODALITY 7 1/> AREAS CHIROPRAC TRACTION TIC CENTE MECHANICA L MANUAL 37823 [place] THERAPY 7 TQS 1/> CHIROPRAC REGIONS TIC CENTE EACH 15 MINUTES CHIROPRAC 22840 [place] TIC 7 MANIPLTV CHIROPRAC TX TIC CENTE EXTRASPIN AL 1/> REGION CH[place]OPRAC 17115 [place] TIC 7 MANIPULAT CHIROPRAC [place] TIC CENTE SPINAL 3-4 REGIONS CHIROPRAC 96677 [place] TIC 7 MANIPULAT [place] SPINAL 3-4 REGIONS MANUAL 35430 [place] THERAPY 7 TQS 1/> CHIROPRAC REGIONS TIC CENTE EACH 15 MINUTES CHIROPRAC 86754 [place] TIC 7 MANIPLTV CHIROPRAC TX TIC CENTE EXTRASPIN AL 1/> REGION APPL 97586 [place] MODALITY 7 1/> AREAS CHIROPRAC CHIROPRAC TRACTION TIC CENTE TIC CENTE MECHANICA L APPL 21593 [place] MODALITY 7 1/> AREAS CHIROPRAC CHIROPRAC TRACTION TIC CENTE TIC CENTE MECHANICA L CHIROPRAC 54603 [place] TIC 7 MANIPLTV CHIROPRAC TX TIC CENTE EXTRASPIN AL 1/> REGION MANUAL 19914 [place] THERAPY 7 TQS 1/> CHIROPRAC REGIONS TIC CENTE EACH 15 MINUTES CHIROPRAC 60344 [place] TIC 7 MANIPULAT [place]OPRAC [place] SPINAL 3-4 REGIONS INJECTION J0696 NICOLASA BALDWIN 7 CEFTRIAXO NE SODIUM PER 250 MG CUL BACT 81170 [facility] XCPT 7 [facility] URINE INC INC BLOOD/STO OL AEROBIC ISOL CHIROPRAC 02232 [place] TIC 7 MANIPULAT CHIROPRAC CHIROPRAC [place] T[place] C[place] TIC CENTE SPINAL 3-4 REGIONS MANUAL 98932 [place] THERAPY 7 TQS 1/> CHIROPRAC REGIONS TIC CENTE EACH 15 MINUTES CHIROPRAC 51051 [place] TIC 7 MANIPLTV CHIROPRAC TX TIC CENTE EXTRASPIN AL 1/> REGION MANUAL 98464 [place] THERAPY 6 TQS 1/> CHIROPRAC REGIONS TIC CENTE EACH 15 MINUTES CHIROPRAC 68443 [place] TIC 6 MANIPLTV CHIROPRAC TX TIC CENTE EXTRASPIN AL 1/> REGION CHIROPRAC 05169 [place] TIC 6 MANIPULAT [facility]OPRAC [place] SPINAL 1-[address] [place] [address] [place] ABDOMEN & 6 MEDICAL PELVIS IMAGING W/O ASS CONTRAST MATERIAL BLOOD 80339 [facility] COUNT 6 [facility] COMPLETE INC INC AUTO&AUTO DIFRNTL WBC COMPREHEN 16374 [facility] SIVE 6 [facility] [place] [address] [facility] AMYLASE 6 [place] [address] [facility] INFUSION 6 [facility] THERAPY/P INC INC ROPHYLAXI S /DX 1ST TO 1 HR THERAPEUT 86376 [facility] IC 6 [facility] INJECTION INC INC IV PUSH EACH NEW DRUG URNLS DIP 02306 [facility] 6 [facility] STICK/TAB INC INC [place] [address] [facility] LIPASE 6 [facility] INC INC CHIROPRAC 06095 [place] TIC 6 AMA MANIPLTV CHIROPRAC TX TIC CENTE EXTRASPIN AL 1/> REGION MANUAL 97610 [place] THERAPY 6 AMA TQS 1/> CHIROPRAC REGIONS TIC CENTE EACH 15 MINUTES CHIROPRAC 61150 [place] TIC 6 AMA MANIPULAT CHIROPRAC [place] T[place] C[place] SPINAL 1-2 REGIONS CHIROPRAC 84171 [place] TIC 6 AMA MANIPULAT CHIROPRAC [place] T[place] CENT[place] SPINAL 1-2 REGIONS CHIROPRAC 25881 [place] TIC 6 AMA MANIPLTV CHIROPRAC TX TIC CENTE EXTRASPIN AL /> REGION MANUAL 62809 [place] THERAPY 6 AMA TQS 1/> CHIROPRAC REGIONS TIC CENTE EACH 15 MINUTES BLOOD 60774 [facility] COUNT 6 [facility] COMPLETE INC INC AUTO&AUTO DIFRNTL [facility] G0378 [facility] OBSERVATI 6 [facility] ON INC INC SERVICE PER HOUR COLLECTIO 27091 [facility] N VENOUS 6 [facility] BLOOD INC INC VENIPUNCT URE BASIC 69384 [facility] METABOLIC 6 [facility] PANEL INC INC CALCIUM TOTAL URNLS DIP 78820 [facility] 6 [facility] STICK/TAB INC INC LET REAGENT AUTO MICROSCOP Y COLLECTIO 13798 [facility] N VENOUS 6 [facility] BLOOD INC INC VENIPUNCT URE BLOOD 76568 [facility] COUNT 6 [facility] [place] [address] [facility] PATHOLOGY GROSS&JAZMYN ROSCOPIC EXAM TX PROC G0238 [facility] IMPRV [facility] RESP INC INC FUNCT NOT G0237 FCE-FCE 15MIN LAPS 62009 [facility] W/VAG 6 PHYSICIAN ALANNA HYSTERECT S GROUP 250 GM/&RMVL TUBE&/OVA POLI ANESTHESI 81890 COMMUNITY FEEBACK A VAGINAL 6 ANESTH REE OF THE HYSTERECT [facility] G0378 [facility] OBSERVATI 6 [facility] ON INC INC SERVICE PER HOUR BLOOD 33841 [facility] COUNT 6 [facility] HEMOGLOBI INC INC N GONADOTRO 47760 [facility] PIN 6 [facility] CHORIONIC INC INC QUALITATI VE BLOOD 91963 [facility] COUNT 6 [facility] COMPLETE INC INC AUTO&AUTO DIFRNTL WBC COLLECTIO 91006 [facility] N VENOUS 6 [facility] [place] [address] [facility] THYROID 6 [facility] STIMULATI INC INC NG HORMONE TSH CREATINE 24320 [facility] KINASE 6 [facility] TOTAL INC INC CYANOCOBA 98958 [facility] ANICETO 6 [facility] VITAMIN INC INC B-12 [place] [address] [facility]HT[facility] FERRITIN 6 [facility] INC INC BASIC 71986 [facility] METABOLIC 6 [facility] PANEL INC INC CALCIUM TOTAL HEMOGLOBI 34784 [facility] N 6 [facility] GLYCOSYLA [place] [address] [facility] FOLIC 6 [facility] ACID INC INC SERUM CHIROPRAC 97278 [place] TIC 6 AMA MANIPULAT CHIROPRAC [place] SPINAL 1-2 REGIONS CHIROPRAC 22164 [place] TIC 6 AMA MANIPLTV CHIROPRAC TX TIC CENTE EXTRASPIN AL 1/> REGION NEEDLE 67743 [facility] EMG EA 6 [facility] EXTREMTY INC INC W/PARASPI NL AREA COMPLETE NERVE 99233 [facility] CONDUCTIO 6 [facility] N STUDIES INC INC 3-4 STUDIES CHIROPRAC 50124 [place] TIC 6 DANETTE MANIPLTV CHIROPRAC TX TIC CENTE EXTRASPIN AL 1/> REGION CHIROPRAC 32057 [place] TIC 6 DANETTE MANIPULAT CHIROPRAC [place] TIC CENT[place] SPINAL 1-[place] [address] [facility] [place] [facility] 6 [facility] PATHOLOGY GROSS&JAZMYN ROSCOPIC EXAM ENDOMETRI 95192 [facility] AL BX 6 PHYSICIAN ALANNA W/WO S GROUP ENDOCERVI X BX W/O DILAT SPX CHIROPRAC 82225 [place] TIC 6 MANIPLTV CHIROPRAC TX TIC CENTE EXTRASPIN AL 1/> REGION DIAGNOSTI G0204 [place] YASMIN C 6 MEDICAL HOPE MAMMOGRAP IMAGING HY INCL ASS CAD WHEN PERF; BILAT CHIROPRAC 73690 [place] TIC 6 MANIPULAT CH[facility]OPRAC [place] T[place] C[place] SPINAL 1-2 REGIONS [facility] [address] [place] YASMIN AIDED 6 MEDICAL HOPE DETECTION IMAGING DX ASS MAMMOGRAP HY CYTP C/V 81916 [facility], PICKLESIM AUTO THIN 6 [facility] ER JR RACHEL LYR PREPJ SCR MNL RESCR PHYS [facility]OPRAC 59258 [place] TIC 6 MANIPULAT CHIROPRAC [place] T[place] CENTE SPINAL 1-2 REGIONS CHIROPRAC 59732 [place] TIC 6 MANIPLTV CHIROPRAC TX TIC CENTE EXTRASPIN AL 1/> REGION MANUAL 65798 [place] THERAPY 6 TQS 1/> CHIROPRAC REGIONS TIC CENTE EACH [address] [place] [address] [facility] THYROXINE 6 [facility] TOTAL INC INC THYROID 13105 [facility] HORM 6 [facility] UPTK/THYR INC INC OID HORMONE BINDING RATIO BLOOD 13963 [facility] COUNT 6 [facility] COMPLETE INC INC AUTO&AUTO DIFRNTL WBC COLLECTIO 71563 [facility] N VENOUS 6 [facility] [place] [address] [facility] THYROID 6 [facility] STIMULATI INC INC NG HORMONE TSH GONADOTRO 18744 [facility] PIN 6 [facility] LUTEINIZI INC INC NG HORMONE GONADOTRO 79026 [facility] PIN 6 [facility] FOLLICLE INC INC STIMULATI NG HORMONE BASIC 30571 [facility] METABOLIC 6 [facility] [place] [address] [place] ALL TRANSVAGI 6 MEDICAL NAL IMAGING ASS CHIROPRAC 82821 [place] TIC 6 DANETTE MANIPLTV CHIROPRAC TX TIC CENTE EXTRASPIN AL 1/> REGION CHIROPRAC 75262 [place] TIC 6 DANETTE MANIPULAT CHIROPRAC [place] T[place] CENTE SPINAL 1-2 [place] MANUAL 76792 [place] THERAPY 6 DANETTE TQS 1/> CHIROPRAC REGIONS TIC CENTE EACH 15 MINUTES MANUAL 21121 [place] THERAPY 6 DANETTE TQS 1/> CHIROPRAC REGIONS TIC CENTE EACH 15 MINUTES CHIROPRAC 20406 [place] TIC 6 DANETTE MANIPULAT CHIROPRAC [place] TIC CENTE SPINAL 1-2 REGIONS CHIROPRAC 40566 [place] TIC 6 DANETTE MANIPLTV CHIROPRAC TX TIC CENTE EXTRASPIN AL 1/> REGION THERAPEUT 38353 [place] IC PX 1/> 6 DANETTE AREAS CHIROPRAC EACH 15 TIC CENTE MIN EXERCISES THERAPEUT 84154 [place] PX 1/> 6 AMA AREAS CHIROPRAC EACH 15 TIC CENTE MIN EXERCISES CHIROPRAC 65426 [place] TIC 6 AMA MANIPULAT CHIROPRAC [place] TIC CENTE SPINAL 1-2 REG[place] APPL 59234 [place] MODALITY 6 AMA 1/> AREAS CHIROPRAC TRACTION TIC CENTE MECHANICA L APPL 12001 [place] MODALITY 6 1/> AREAS CHIROPRAC CHIROPRAC TIC CENTE TIC CENTE ULTRASOUN D EA 15 MIN CHIROPRAC 52668 [place] TIC 6 AMA MANIPLTV CHIROPRAC TX TIC CENTE EXTRASPIN AL 1/> REGION MANUAL 82657 [place] THERAPY 6 AMA TQS 1/> CHIROPRAC REGIONS TIC CENTE EACH 15 MINUTES MANUAL 94471 [place] THERAPY 6 AMA TQS 1/> CHIROPRAC REGIONS TIC CENTE EACH 15 MINUTES CHIROPRAC 63846 [place] TIC 6 AMA MANIPLTV CHIROPRAC TX TIC CENTE EXTRASPIN AL 1/> REGION APPL 52999 [place] MODALITY 6 AMA 1/> AREAS CHIROPRAC TIC CENTE ULTRASOUN D EA 15 MIN APPL 22116 [place] MODALITY 6 1/> AREAS CHIROPRAC CHIROPRAC TRACTION TIC CENTE TIC CENTE MECHANICA L APPL 22688 [place] MODALITY 6 AMA 1/> AREAS CHIROPRAC ELEC TIC CENTE STIMJ UNATTENDE D CHIROPRAC 43481 [place] TIC 6 AMA MANIPULAT CHIROPRAC [place] TIC CENTE SPINAL 1-2 [place] THERAPEUT 14994 [place] IC PX 1/> 6 AMA AREAS CHIROPRAC EACH 15 TIC CENTE MIN EXERCISES THERAPEUT 62402 [place] IC PX 1/> 6 [place]ANET[place] DANETTE AREAS EACH 15 MIN EXERCISES APPL 59094 [place] MODALITY 6 DANETTE DANETTE 1/> AREAS ELEC STIMJ UNATTENDE D APPL 82064 [place] MODALITY 6 DANETTE DANETTE 1/> AREAS TRACTION MECHANICA L APPL 87600 [place] MODALITY 6 DANETTE DANETTE 1/> AREAS ULTRASOUN D EA 15 MIN MANUAL 74736 [place] THERAPY 6 DANETTE TQS 1/> CHIROPRAC REGIONS TIC CENTE EACH 15 MINUTES CHIROPRAC 82064 [place] TIC 6 DANETTE DANETTE MANIPLTV TX EXTRASPIN AL 1/> REGION CHIROPRAC 78985 [place] TIC 6 DANETTE DANETTE MANIPULAT [place] TX SPINAL 1-2 REGIONS CHIROPRAC 03040 [place] TIC 6 DANETTE DANETTE MANIPLTV TX EXTRASPIN AL 1/> REGION MANUAL 63602 [place] THERAPY 6 DANETTE DANETTE TQS 1/> REGIONS EACH 15 MINUTES APPL 36482 [place] MODALITY 6 DANETTE DANETTE 1/> AREAS ULTRASOUN D EA 15 MIN APPLICATI 65143 [place] ON 6 DANETTE DANETTE MODALITY 1/> AREAS HOT/COLD PACKS APPL 67874 [place] MODALITY 6 DANETTE DANETTE 1/> AREAS TRACTION MECHANICA L APPL 30496 [place] MODALITY 6 DANETTE DANETTE 1/> AREAS ELEC STIMJ UNATTENDE D CHIROPRAC 82126 [place] TIC 6 DANETTE DANETTE MANIPULAT [place] TX SPINAL 1-2 REGIONS APPL 45689 [place] MODALITY 6 DANETTE 1/> AREAS CHIROPRAC ELEC TIC CENTE STIMJ UNATTENDE D APPL 39337 [place] MODALITY 6 DANETTE 1/> AREAS CHIROPRAC TRACTION TIC CENTE MECHANICA L APPL 08086 [place] MODALITY 6 DANETTE 1/> AREAS CHIROPRAC TIC CENTE ULTRASOUN D EA 15 MIN APPLICATI 89517 [place] ON 6 MODALITY CHIROPRAC CHIROPRAC 1/> AREAS TIC CENTE TIC CENTE HOT/COLD PACKS MANUAL 64384 [place] THERAPY 6 DANETTE TQS 1/> CHIROPRAC REG[place] TIC CENTE EACH 15 MINUTES CHIROPRAC 72366 [place] TIC 6 DANETTE DANETTE MANIPLTV TX EXTRASPIN AL 1/> REGION MANUAL 25388 [place] THERAPY 6 DANETTE DANETTE TQS 1/> REGIONS EACH 15 MINUTES APPLICATI 07324 [place] ON 6 DANETTE DANETTE MODALITY 1/> AREAS HOT/COLD PACKS APPL 11749 [place] MODALITY 6 DANETTE DANETTE 1/> AREAS ULTRASOUN D EA 15 MIN APPL 33960 [place] MODALITY 6 DANETTE DANETTE 1/> AREAS ELEC STIMJ UNATTENDE D CHIROPRAC 81985 [place] TIC 6 DANETTE DANETTE MANIPULAT [place] SPINAL 3-4 REGIONS CTA ABDL 41560 [facility] [place] AORTA&BI 6 RADIOLOGY LD IV ALL ILIOFEM W/CONTRAS T&POSTP CT LUMBAR 64063 [facility] [place] SPINE 6 RADIOLOGY LD IV ALL W/O CONTRAST MATERIAL DRUG SCR G0434 COMBINED COMBINED NOT 6 PHYSICIAN PHYSICIAN CHROMATOG S LA S LA RAPHIC; ANY NUMBER PT ENC DRUG TST G0477 COMBINED COMBINED PRESUMP;C 6 PHYSICIAN PHYSICIAN PBL BEING S LA S LA READ DC OPT OBV ONLY ECG 89324 PARTHA MOE JR ROUTINE 6 [facility] W/LEAST P 12 LDS I&R ONLY INJECTION J0696 NICOLASA BALDWIN 6 DILMA DILMA CEFTRIAXO NE SODIUM PER 250 MG HEPB 17943 [facility] VACCINE 6 [facility] ADULT 3 TH DEPT [facility] DEPT DOSE KHANG KHANG SCHEDULE FOR IM USE DIAGNOSTI G0204 [facility] Humphries 6 [facility] INC HY INCL CAD WHEN PERF; BILAT SMR PRIM 95914 [facility] SR[facility] WET 5 [facility] DE[facility] NFCT AGT KHANG KHANG IADNA 96066 [facility] CHLAMYDIA [facility] DEPT [facility] DEPT TRACHOMAT KHANG KHANG IS AMPLIFIED PROBE TQ IADNA 05249 [facility] NEISSERIA [facility] DEPT [facility] DEPT GONORRHOE KHANG KHANG AE AMPLIFIED PROBE TQ PH BODY 42995 [facility] FLUID NOT 5 [facility] DEPT [facility] DEPT ELSEWHERE KHANG KHANG SPECIFIED ALL Q0112 [facility] POTASSIUM 5 [facility] DEPT [facility] DEPT HYDROXIDE KHANG KHANG PREPARATI ONS URNLS DIP 35050 [facility] STICK/TAB [facility] DEPT [facility] DEPT LET RGNT [facility] NON-AUTO W/O MICRSCP AMINES 37534 [facility] VAGINAL 5 [facility] FLUID [facility] DEPT [facility] DEPT QUALITATI KHANG KHANG VE WET Q0111 [facility] CHRISTIAN [address] [facility] INCL PREP [facility] DEPT [facility] DEPT VAGINAL [facility] CERV/[place] [address] [place] ALL ABDOMEN & 5 MEDICAL PELVIS IMAGING W/O ASS CONTRAST MATERIAL DRUG SCR G0434 COMBINED COMBINED NOT 5 PHYSICIAN PHYSICIAN CHROMATOG S LA S LA RAPHIC; ANY NUMBER PT ENC INJECTION J0696 NICOLASA BALDWIN 5 DILMA DILMA CEFTRIAXO NE SODIUM PER 250 MG INJECTION J0696 NICOLASA BALDWIN 5 DILMA DILMA CEFTRIAXO NE SODIUM PER 250 MG DIAGNOSTI G0204 [place] Y[place] C 4 MEDICAL HOPE MAMMOGRAP IMAGING HY INCL ASS CAD WHEN PERF; BILAT OPHTH 16444 [facility] 4 XM&EVAL COMPRHNSV ESTAB PT 1/> POLYSOM 31459 [facility] 6/>YRS 1 Y Y SLEEP 4/> [facility] [place] [address] PARTHA CHAVIS CLOSTRIDI 1 [facility] UM INC INC DIFFICILE TOXIN 3D 61446 PAR[facility] CHAVIS RENDERING 1 [facility] INC INC W/INTERP& POSTPROC DIFF WORK STATION BLOOD 14304 PARTHA CHAVIS COUNT 1 [facility] COMPLETE INC INC AUTO&AUTO DIFRNTL WBC CUL BACT 68957 PARTHA CHAVIS STOOL 1 [facility] AEROBIC INC INC ISOL SALMONELL A&[place] [address] PARTHA CHAVIS INFUSION 1 [facility] THER INC INC PROPH ADDL SEQUENTIA [place] [address] [place] [address] PARTHA CHAVIS ABDOMEN & 1 [facility] PELVIS INC [place] [address] PARTHA CHAVIS INFUSION 1 [facility] THERAPY/P INC INC ROPHYLAXI S /DX 1ST TO 1 HR URNLS DIP 01079 PARTHA CHAVIS 1 [facility] STICK/TAB INC INC LET REAGENT AUTO MICROSCOP Y BLOOD 26545 PARTHA CHAVIS OCCULT 1 [facility] PEROXIDAS INC INC E ACTV QUAL FECES 1-3 SPEC COMPREHEN 74398 PARTHA CHAVIS SIVE 1 [facility] METABOLIC INC INC PANEL CARBON 14265 [place] [facility] MONOXIDE 1 MEDICAL JAM DIFFW/CAP SERV FOUNDATIO BRNCDILAT 69877 PARTHA CHAVIS RSPSE 1 [facility] SPMTRY INC INC PRE&POST- BRNCDILAT ADMN FUNCTIONA 60566 PARTHA CHAVIS L 1 [facility] RESIDUAL INC INC CAPACITY OR RESIDUAL VOLUME DETER 74207 PARTHA CHAVIS MALDISTRI 1 [facility] BJ OF INC INC INSPIRED GAS N WSHOT CURVE DETER 19661 PARTHA CHAVIS AIRWY 1 [facility] CLOSING INC INC VOL 1 [place] [address] PARTHA CHAVIS THYROID 1 [facility] STIMULATI INC INC NG HORMONE TSH OPHTH 83509 LEANA SCIFRES MEDICAL 0 VISION ANG XM&EVAL COMPRHNSV ESTAB PT 1/> ARTHROCEN 11544 [facility] PETTEY TESIS 0 PHYSICIAN JAM ASPIR&/IN S GROUP J SMALL JT/BURSA W/O US INJECTION J0696 ARNOLD ARNOLD 0 DILMA DILMA CEFTRIAXO NE SODIUM PER 250 MG EXC B9 37984 JOSIAH [place] LESION 8 , REFUGIO HUFF MRGN XCP SK TG T/A/L 1.1-2.0 CM LEVEL III 76256 PATHOLOGY PATHOLOGY SURG 8 & & PATHOLOGY CYTOLOGY CYTOLOGY LAB LAB GROSS&JAZMYN ROSCOPIC EXAM FIBRIN 46981 PARTHA CHAVIS DGRADJ 8 [facility] PRODUCTS INC INC D-DIMER QUAL/SEMI FILIBERTO ECG 14463 PARTHA CHAVIS ROUTINE 8 [facility] ECG INC INC W/LEAST 12 LDS TRCG ONLY W/O I&R PRESSURIZ 64776 [facility] CHAVIS ED/NONPRE 8 [facility] SSURIZED INC INC INHALATIO N TREATMENT RADIOLOGI 53655 [facility] C EXAM 8 [facility] [place] CHEST 2 IMAGING VIEWS ASSOCIATE FRONTAL&L S ATERAL BLOOD 12815 [facility] COUNT 8 [facility] COMPLETE INC INC AUTO&[place] [address] [facility] TROPONIN 8 [facility] QUANTITAT INC INC NORBERTO CREATINE 64026 [facility] KINASE MB 8 [facility] FRACTION INC INC ONLY CREATINE 47602 [facility] KINASE 8 [facility] TOTAL INC INC BASIC 74025 [facility] METABOLIC 8 [facility] PANEL INC INC CALCIUM TOTAL RADEX 59401 [facility] CALCANEUS 8 MEDICAL [place] MINIMUM IMAGING 2 VIEWS ASSOCIATE S APPLICATI 57529 ELANA SOWOODN, ON SHORT 8 NATIONAL ISMAEL LEG CORPORATI O SPLINT ON CALF FOOT LIPID 64310 [facility] PANEL 8 [facility] INC INC COMPREHEN 20057 [facility] SIVE 8 [facility] METABOLIC INC INC PANEL BLOOD 19498 [facility] COUNT 8 [facility] COMPLETE INC INC AUTO&AUTO DIFRNTL WBC RHEUMATOI 32868 [facility] D FACTOR 8 [facility] QUANTITAT INC INC NORBERTO ANTINUCLE 72570 [facility] AR 8 [facility] ANTIBODIE INC INC S AG SEDIMENTA 40605 [facility] TION RATE 8 [facility] RBC INC INC NON-AUTOM ATED INCISION 67888 JOSIAH RAHMAN & 8 , REFUGIO , REFUGIO DRAINAGE ABSCESS SIMPLE/SI NGLE RADEX ABD 43850 DIANA DAVIDSON COMPL 8 MEDICAL JACKIE P AQT ABD IMAGING W/S/E/D ASSOCIATE VIEWS 1 S VIEW CH ADMN SET A7003 YOUR YOUR SM VOL 8 PHARMACY PHARMACY NONFIL Path [facility] PNEUMAT NEBULIZR DISPBL NEBULIZER E0570 LB ASHER WITH 8 HOME MED HOME MED COMPRESSO EQUIP. EQUIP. R BaseKit OPHTH 70449 GT DEL REAL, [facility] 8 JENNI A JENNI A XM&EVAL COMPRE NEW PT 1/> VST LIPID 08091 COMBINED COMBINED PANEL 8 PHYSICIAN PHYSICIAN S LAB S LAB GLUC BLD 19590 DHS/CO [facility] GLUC MNTR [address] [facility] DEV [facility] CLEARED BANK ACCT FDA SPEC HOME USE RADEX 48357 [facility] SHELLY GRIFFIN, G ANKLE 8 RADIOLOGY T COMPLETE MINIMUM 3 VIEWS CYTP 17473 DHS/CO [facility] CERV/VAG 8 [facility] AUTO [facility] LAYER B[facility] ACCT PREP MNL SCREEN BLOOD 89839 DHS/CO [facility] COUNT [address] [facility] HEMOGLOBI [facility] N BANK ACCT GLUC BLD 68166 [facility]/CO [facility] GLUC MNTR [address] [facility] DEV [facility] CLEARED BANK ACCT FDA SPEC HOME USE DUP-SCAN 54067 CNTR[facility] [place] AIMEE, XTR VEINS 8 RADIOLOGY AMY G UNILATERA L/LIMITED STUDY Encounters Encounter Start End Date Code Location Performer Type Date OFFICE 03782 NICOLASA BALDWIN OUTPATIEN 7 7 T VISIT 15 MINUTES HOSPITAL [facility] - 7 7 [facility]IEN INC T EMERGENCY 00213 VERONICA DUDLEY 6 6 [facility]YSICIAN DEPARTMEN [facility] PLL[facility] T VISIT HIGH/URGE NT SEVERITY EMERGENCY 53881 [facility] 6 6 [facility] DEPARTMEN INC T VISIT MODERATE SEVERITY [facility]OSP[facility] - 6 6 [facility] OUTPATIEN [facility] T OFFICE 49586 NICOLASA CASTROPATIDONNA 6 6 T VISIT 15 MINUTES HOSPITAL [facility] - 6 6 [facility] OUTPATIEN [facility] H[facility] - 6 6 [facility] - 6 6 [facility] OUTPATIEN [facility] OFFICE 34894 [facility] SHORAHEEM-M OUTPATIEN 6 6 PHYSICIAN OGERIKA T NEW 45 S GROUP JAL MINUTES PERIODIC 46561 [facility] PREVENTIV 6 6 PHYSICIAN E MED EST S GROUP PATIENT 40-64YRS HOSPITAL [facility] - 6 6 [facility] OUTPATIEN CRITICAL ACCESS HOSPITAL HOSPITAL [facility] - 6 6 [facility] OUTPATIEN [facility] T OFFICE 65568 [facility] OUTPATIEN 6 6 PHYSICIAN T NEW 30 S GROUP MINUTES OFFICE 57099 [facility] OUT[facility] 6 6 DANETTE DANETTE T NEW 30 MINUTES EMERGENCY 56518 MELINA VARGAS DEPT 6 6 SONIDO VISIT EMERGENCY HIGH PHYSI SEVERITY& THREAT FUNCJ OFFICE 09778 NICOLASA CASTROPATIEN 6 6 DILMA DILMA T VISIT 15 MINUTES EMERGENCY 95855 VERONICA DUDLEY 6 6 PHYSICIAN JAZMYN DEPARTMEN S, PLLC T VISIT MODERATE SEVERITY EMERGENCY 57822 VERONICA RENUSCH DEPT 6 6 PHYSICIAN TANNER VISIT S, PLLC HIGH SEVERITY& THREAT FUNCJ OFFICE 57501 ARNOLD ARNOLD OUTPATIEN 6 6 DILMA DILMA T VISIT 15 MINUTES EMERGENCY 93779 VERONICA DUDLEY 6 6 PHYSICIAN JAZMYN DEPARTBASHIR S, PLLC T VISIT MODERATE SEVERITY OFFICE 38399 NICOLASA NICOLASA OUTPATIEN 6 6 DILMA DILMA T VISIT 15 MINUTES OFFICE 50363 [facility] T VISIT 5 HLTH DEPT [facility] MINUTES [facility] - 6 6 [facility] OUTPATIEN INC T PERIODIC 31997 [facility] PREVENTIV 5 5 [facility] E MED EST HLTH DEPT [facility] DEPT PATIENT [facility] 40-64YRS OFFICE 76916 [facility] 5 5 [facility] T VISIT TH DEPT [facility] 15 [facility] MINUTES OFFICE 78709 [facility] OLIVAS JR OUTPATIEN [address] MINUTES P OFFICE 47022 NICOLASA BALDWIN OUTPATIEN 5 5 DILMA DILMA T VISIT 15 MINUTES OFFICE 35765 NICOLASA BALDWIN OUTPATIEN 5 5 DILMA DILMA T VISIT 15 MINUTES OFFICE 97761 [facility] FLORY TOFernandez OUTPATIEN 5 5 PHYSICIAN T VISIT S GROUP 10 MINUTES [facility]ICE 80805 [facility] 5 5 PHYSICIAN ION S GROUP NEW/[facility] PATIENT 40 MIN OFFICE 69981 NICOLASA BALDWIN OUTPATIEN 5 5 DILMA DILMA T VISIT 15 MINUTES HOSPITAL [facility] - 4 4 [facility] OUTPATIEN INC T OFFICE 01498 [facility] 4 4 [facility] T VISIT [facility] DEPT [facility] DE[facility] 10 [facility] MINUTES Emergency SIVAN Dudley MD (ER) 3 02:47 3 02:52 [facility] UNIVERSIT - 1 1 [facility] T OFFICE 00079 SHELLY [facility]AMS[facility]SEY [facility] 1 MEDICAL JAM T VISIT SERV 15 FOUNDATIO MINUTES OFFICE 33205 NICOLASA CASTANOEN 1 1 DILMA DILMA T VISIT 15 MINUTES HOSPITAL [facility] - 1 1 [facility] T EMERGENCY 86289 [facility] 1 1 [facility] T VISIT HIGH/URGE NT SEVERITY EMERGENCY 22969 SELWYN DUDLEY DEPT 1 1 EMERGENCY JAZMYN VISIT SERVICES HIGH SEVERITY& THREAT [facility] PATRHA - 1 1 [facility] - 1 1 [facility] 33909 NICOLASA BALDWIN OUTPATIEN 0 0 DILMA DILMA T VISIT 15 MINUTES OFFICE 69360 MARY JO CAMARGO JR CONSULTAT 0 0 GIANCARLO GIANCARLO ION NEW/ESTAB PATIENT 40 MIN OFFICE 35679 CIARANLYNDA BALDWIN OUTPATIEN 0 0 DILMA DILMA T VISIT 15 MINUTES OFFICE 27662 NICOLASA BALDWIN OUTPATIEN 0 0 DILMA DILMA T VISIT 15 MINUTES OFFICE 23176 [facility] PHYSICIAN JAM T VISIT S GROUP 25 MINUTES OFFICE 90462 NICOLASA BALDWIN OUTPATIEN 0 0 DILMA DILMA T VISIT 15 MINUTES OFFICE 93121 CIARANLYNDA CIARANLYNDA OUTPATIEN 0 0 DILMA DILMA T VISIT 15 MINUTES OFFICE 24367 CIARANLYNDA BALDWIN OUTPATIEN 0 0 DILMA DILMA T VISIT 15 MINUTES OFFICE 96200 JOSIAH JOHNSTONSTEDDI CONSULTAT 8 8 , REFUGIO HUFF ION NEW/ESTAB PATIENT 30 MIN HOSPITAL [facility] - 8 8 [facility] T EMERGENCY 12169 ELANA KRUGER, 8 8 [facility] CORPOR[facility] O T VISIT ON MODERATE SEVERITY EMERGENCY 66229 [facility] 8 8 [facility] T VISIT LIMITED/M INOR PROB HOSPITAL [facility]A - 8 8 [facility] OUTPATIEN [facility] T EMERGENCY 20090 [facility] 8 8 [facility] T VISIT HIGH/URGE NT SEVERITY OFFICE 41063 [facility] 8 8 [facility] T VISIT ASSOCIATE 15 S MINUTES HOSPITAL [facility] - 8 8 [facility] T EMERGENCY 16414 [facility] 8 8 [facility] T VISIT LIMITED/M INOR PROB HOSPITAL [facility] - 8 8 [facility] T EMERGENCY 00126 ELANA KRUGER, 8 8 [facility] CORPOR[facility] O T VISIT ON MODERATE SEVERITY HOSPITAL [facility] - 8 8 [facility] T OFFICE 02954 DHEERAJ ESQUEDA OUTPATIEN 8 8 DON R DON R T VISIT 15 MINUTES OFFICE 01984 JOISAH RAHMAN CONSULTAT 8 8 , REFUGIO HUFF ION NEW/ESTAB PATIENT 15 MIN OFFICE 61796 DHEERAJ ESQUEDA OUTPATIEN 8 8 DON R DON R T NEW 20 MINUTES EMERGENCY 88893 [facility], 8 8 SONIDO Pike [facility] EMERGENCY T VISIT [facility] MODERATE SEVERITY EMERGENCY 50581 [facility]A TIDWELL, 8 8 [facility] T VISIT PROF SERV LOW/MODER SEVERITY HOSPITAL [facility] - 8 8 [facility] OUTPATIEN [facility] T OFFICE 81424 DHS/CO [facility]A TOBIAS 8 8 HEALTH CO HEALTH T VISIT [facility] 15 BANK ACCT MINUTES EMERGENCY 63177 [facility] 8 8 [facility] B[facility] Pike [facility] EMERGENCY T VISIT PHYS INC MODERATE SEVERITY PERIODIC 37066 DHS/CO [facility]A PREVENTIV [address] HEALTH E MED EST [facility] PATIENT BANK ACCT 18-39 YRS [facility] [place] [address] [facility]
--- OUTSIDE RECORDS SUMMARY | 2017-03-28 13:48 | External Medical Summary Rpt ---
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 [place] [place] [facility] [place] Ethan GRIFFIN T, Ethan GRIFFIN Unavailable Unavailable T FEEBACK REE, FEEBACK Unavailable Unavailable REE ALEXA, ALEXA Unavailable Unavailable ALEXA JAZMYN, ALEXA Unavailable Unavailable JAZMYN [facility] Unavailable Unavailable [facility] AMY YU, Unavailable Unavailable AMY YU [facility] Unavailable Unavailable INC, [facility] DEL REAL AMINA, DEL REAL AMINA Unavailable Unavailable DEL REAL AMINA, DEL REAL AMINA Unavailable Unavailable DEL REAL, JENNI A, Unavailable Unavailable DEL REAL, JENNI A [facility], Unavailable Unavailable [facility] JAUREGUI, JAUREGUI Unavailable Unavailable JAUREGUI AMA, JAUREGUI Unavailable Unavailable AMA [facility] Un[facility] Unavailable [...] HENRY, Unavailable Unavailable Pelon [facility] Unavailable Unavailable LABS, [facility], [...] PHARM #[id number] [facility] Unavailable Unavailable [id number] [address] [id number], [facility] [address] # [id number] SCHULSTEDDI REFUGIO, Unavailable Unavailable SCHULSTAD, REFUGIO SCIFRES ANG, SCIFRES Unavailable Unavailable ANG SHOJAEI-YUNG Unavailable Unavailable JAL, SHOJAEI-YUNG JAL SMALL, OLVIN Price, SMALL, Unavailable Unavailable OLVIN Price SOKAN, ISMAEL O, Unavailable Unavailable SOKAN, ISMAEL O [facility] Un[facility] Unavailable Unavailable EMERGENCY PHY[facility], [facility] ESQUEDA DON R, Unavailable Unavailable ESQUEDASUZI NEGRETE R [facility], Unavailable Unavailable [facility] Unavailable Unavailable DEPT [facility] DEPT [facility] Unavailable Unavailable DEPT [facility] DEPT [facility] VILMA IV ALL, Unavailable Unavailable VILMA IV ALL RAGLAND, RAGLAND Unavailable Unavailable [facility] Un[facility], Unavailable Unavailable [facility] Purpose Continuity of Care Document - 09-04-2007 [...] OTH SPEC 08-28-2016 [facility] NONINFECTIV PHYSICIANS, Bettie [facility] & COLITIS K529 NONINFECTIV 08-28-2016 [facility] INC ITIS & COLITIS UNS K5900 CONSTIPATIO 08-28-2016 [facility] UNSPECIFIED IMAGING ASS R109 UNSPECIFIED 08-28-2016 [place] ABDOMINAL MEDICAL PAIN IMAGING ASS R140 ABDOMINAL 08-28-2016 [place] [facility] GASEOUS [facility]ING ASS R197 DIARRHEA 08-28-2016 [place] UNSPECIFIED MEDICAL IMAGING ASS Z720 TOBACCO USE 08-28-2016 [facility] INC D259 LEIOMYOMA 06-25-2016 [facility] OF [facility]US [facility] UNSPECIFIED 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 N852 HYPERTROPHY 06-25-2016 [facility] UTERUS PHYSICIANS GROUP N920 EXCESS & 06-25-2016 [facility] FREQUENT PHYSICIANS MENSTRUATIO GROUP N W/REGULAR CYCLE N944 PRIMARY 06-25-2016 [facility] DYSMENORRHE PHYSICIANS A GROUP N946 DYSMENORRHE 06-25-2016 [facility] UNSPECIFIED INC F98798 ENCOUNTER 06-21-2016 [facility] PREPROCEDUR INC AL CARIOVASCUL AR EXAM F59329 ENCOUNTER 06-21-2016 [facility] FOR [facility] PREPROCEDUR INC AL LABORATORY EXAM G2581 RESTLESS 06-18-2016 [facility]GS [facility] SYNDROME INC M545 LOW BACK 06-18-2016 [facility] PAIN [facility] INC S01168 PAIN IN 06-18-2016 [facility] RIGHT LEG PHYSICIANS GROUP K27027 PAIN IN 06-18-2016 [facility] LEFT LEG PHYSICIANS GROUP L76754 PAIN IN LEG 06-18-2016 [facility] UNSPECIFIED INC R202 PARESTHESIA 06-18-2016 [facility] OF SKIN [facility] INC N63 UNSPECIFIED 05-29-2016 [place] IN MEDICAL BREAST IMAGING ASS V72716 ENCOUNTER 05-23-2016 [facility], RIVET TOSSER EXAM LLC GENERAL RTN W/O ABNORMAL FIND N951 MENOPAUSAL 05-21-2016 [facility]ALE [facility] CLIMACTERIC INC STATES N8320 UNSPECIFIED 05-17-2016 [place] OVARIAN MEDICAL CYSTS IMAGING ASS N938 OTHER SPEC 05-17-2016 [place] ABNORMAL MEDICAL UTERINE & IMAGING ASS VAGINAL BLEEDING I7389 OTHER 04-21-2016 [facility] [place] SPECIFIED RADIOLOGY PERIPHERAL VASCULAR 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 N390 URINARY 04-20-2016 [facility] INFECTION PHYSI SITE NOT SPECIFIED [id number] STRAIN 04-20-2016 [facility] MUSCLE N EMERGENCY FASCIA & PHYSI TENDON LOW BACK INITIAL Y998 OTHER 04-20-2016 [facility] EXTERNAL N EMERGENCY CAUSE PHYSI STATUS G589 MONONEUROPA 04-13-2016 [facility] DILMA THY UNSPECIFIED Z5181 ENCOUNTER 01-09-2016 [facility]ICIANS THERAPEUTIC LA DRUG LEVEL MONITORING G41042 OTHER LONG 01-09-2016 COMBINED TERM PHYSICIANS CURRENT LA DRUG THERAPY X41532 CELLULITIS 01-02-2016 [facility] OF RIGHT PHYSICIANS, UPPER LIMB PLLC Y815NMT HEAT 12-27-2015 [facility] EXHAUSTION PHYSICIANS, UNSPECIFIED PLLC INITIAL ENCOUNTER X81044 CELLULITIS 11-14-2015 [facility] OF BUTTOCK PHYSICIANS, PLLC Z23 ENCOUNTER 11-07-2015 [facility] FOR DISTRICT IMMUNIZATIO TH DEPT N KHANG Z111 ENCOUNTER 10-07-2015 [facility] SCREENING [facility] FOR TH DEPT RESPIRATORY KHANG TUBERCULOSI S N6001 SOLITARY 09-19-2015 [facility] OF MEDICAL RIGHT IMAGING ASS BREAST N6002 SOLITARY 09-19-2015 [place] CYST OF MEDICAL LEFT BREAST IMAGING ASS Z1239 ENCOUNTER 09-19-2015 [facility] OTHER [facility] SCREENING INC MALIG NEOPLASM BREAST N760 ACUTE 08-09-2015 [facility] VAGINITIS DISTRICT [facility] DEPT KHANG D56336 ENCOUNTER 08-09-2015 [facility] RIVET TOSSER EXAM DISTRICT GENERAL RTN [facility] DEPT W/ABNORMAL KHANG FIND N23 UNSPECIFIED 06-04-2015 ARNLYNDA DILMA RENAL COLIC E279 DISORDER OF 06-02-2015 [place] ADRENAL MEDICAL GLAND IMAGING ASS UNSPECIFIED K6389 OTHER 06-02-2015 [place] SPECIFIED MEDICAL DISEASES OF IMAGING ASS INTESTINE V5869 LONG-TERM 12-17-2014 [facility] (CURRENT) PHYSICIANS USE OF LA OTHER MEDICATIONS 4619 ACUTE 12-02-2014 ARNLYNDA DILMA SINUSITIS, UNSPECIFIED 6828 CELLULITIS 10-04-2014 [facility] AND ABSCESS PHYSICIANS OF OTHER GROUP SPECIFIED SITE 81987 LUMP OR 07-20-2014 [facility] MASS IN [facility] BREAST INC 48577 OTHER 07-20-2014 [place] SPECIFIED MEDICAL DISORDERS IMAGING ASS OF BREAST 32938 UNSPECIFIED 07-06-2014 [facility] ABNORMAL [facility] MAMMOGRAM [facility] DEPT KHANG 3674 PRESBYOPIA 06-14-2014 DEL REAL AMINA 305.1 305.1 05-15-2013 [place] TOBACCO USE [facility] 466.0 466.0 ACUTE 05-15-2013 [place] BRONCHITIS [facility] 511.0 511.0 05-15-2013 [place] PLEURISY [facility] OR TB V14.8 V14.8 05-15-2013 [place] HX-DRUG [facility] ALLERGY [facility] 07694 INSOMNIA 10-02-2010 [facility] 91385 OBESITY, 09-29-2010 [place] MEDICAL UNSPECIFIED SERV FOUNDATIO 4778 ALLERGIC 09-29-2010 [place] [facility] RHINITIS SERV DUE TO FOUNDATIO OTHER ALLERGEN 4918 OTHER 09-29-2010 [place] [facility] CHRONIC SERV BRONCHITIS FOUNDATIO 42984 ESOPHAGEAL 09-29-2010 [place] [facility] REFLUX SERV FOUNDAT[facility] 5589 OTH&UNSPEC 09-15-2010 ARNOLD DILMA NONINFECTIO US GASTROENTER ITIS&COLITI S 5693 HEMORRHAGE 09-15-2010 ARNOLD DILMA OF RECTUM AND ANUS 29164 ABDOMINAL 09-09-2010 [place] PAIN, MEDICAL UNSPECIFIED IMAGING ASS SITE 7831 ABNORMAL 09-08-2010 [facility]IGHT GAIN [facility] INC 91314 SHORTNESS 09-08-2010 [facility] OF BREATH [facility] INC 29668 OTHER 09-08-2010 [place] [facility] DYSPNEA AND SERV FOUNDATIO RESPIRATORY ABNORMALITI ES 7862 COUGH 09-08-2010 [place] [facility] FOUND[facility] 52521 OBSTRUCTIVE 08-18-2010 NICOLASA PERERA CHRONIC BRONCHITIS WITH EXACERBATIO N 7099 UNSPECIFIED 08-10-2010 MARY JO MAHARAJ DISORDER GIANCARLO OF SKIN&SUBCUT ANEOUS TISSUE 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 93829 GANGLION OF 06-20-2010 [facility] TENDON PHYSICIANS SHEATH GROUP 89889 UNSPECIFIED 06-20-2010 NICOLASA PERERA GANGLION 4660 ACUTE 05-11-2010 NICOLASA PERERA BRONCHITIS 6826 CELLULITIS 05-25-2008 SCHULSTAD, AND ABSCESS REFUGIO OF LEG EXCEPT FOOT 7062 SEBACEOUS 05-25-2008 SCHULSTAD, CYST REFUGIO 04186 UNSPECIFIED 05-20-2008 [facility] PYODERMA [facility] INC 5110 PLEURISY 04-11-2008 [facility] WITHOUT [facility] MENTION [place] EFFUS/[place] [address] CHEST PAIN 04-11-2008 [place] UNSPECIFIED [facility] 78592 ACHILLES 03-10-2008 [facility] BURS[facility] OR ASSOCIATES TENDINITIS 46436 OTHER ANKLE 03-09-2008 [employer] SPRAIN AND Siving Egil [place] 22498 PAIN IN 02-08-2008 [facility] JOINT, [facility] MULTIPLE INC SITES 13887 OVERWEIGHT 02-07-2008 [place] R [address] UNSPEC 02-07-2008 ESQUEDA, POLYARTHROP SUZI Bird ATHY/POLYAR THRIT OT SPEC SITE 34847 ASTHMA, 11-27-2007 [facility] UNSPECIFIED HOME MED , [facility] UNSPECIFIED STATUS 5990 URINARY 10-31-2007 [facility] INFECTION PHYS INC SITE NOT SPECIFIED 38607 OTHER 10-31-2007 [facility] MALAISE AND N EMERGENCY FATIGUE PHYS INC 83789 VOMITING 10-31-2007 [facility] ALONE N EMERGENCY PHYS INC 7856 ENLARGEMENT 10-23-2007 [facility] PROF SERV 3670 HYPERMETROP 10-14-2007 YAJAIRA DEL REAL 9739 UNSPECIFIED 09-24-2007 [facility] DISORDER HEALTH OF LIPOID CENTRAL METABOLISM BANK ACCT V771 SCREENING 09-24-2007 [facility] FOR HEALTH DIABETES CENTRAL MELLITUS BANK ACCT 3509 ACUTE URIS 09-18-2007 [facility] OF N EMERGENCY UNSPECIFIED PHYS INC SITE 26913 PAIN IN 09-18-2007 [facility] [place] JOINT, RADIOLOGY ANKLE AND FOOT 68618 CONTUSION 09-18-2007 [facility] OF FOOT N EMERGENCY PHYS INC E8881 FALL 09-18-2007 [facility] RESULTING N EMERGENCY IN STRIKING PHYS INC AGAINST OTHER OBJECT 2662 OTHER 09-16-2007 [facility] B-COMPLEX HEALTH DEFICIENCIE [facility] ACCT V700 ROUTINE 09-16-2007 [facility] EXAM@[facility] ACCT CARE FACL 4538 ACUTE 09-04-2007 [facility] THROM[facility] OT SPECIFIED VEINS 7295 PAIN IN 09-04-2007 [...] 05 06 60 30 00 HO Ac AL 76 -3 -3 .0 00 ME ti [...] 05 06 60 30 00 HO Ac AL 76 -0 -0 .0 00 ME ti [...] 04 05 28 14 00 HO Ac AL 76 -2 -2 .0 00 ME ti [...] ve LO 19 20 20 08 WN AL 60 17 17 59 AM 3 02 [...] 01 14 7 RI 86 GA Ac AL 86 -0 -0 .0 TE 56 IN ti OF 20 8 8- 00 43 EY ve LO 07 20 20 AI XA 70 11 11 D IL CI 1 PH CH N AR AE HC MA L L CY S 50 0 03 MG 93 8 TA # B 03 93 ME 50 01 01 21 7 RI 86 GA Ac TR 11 -0 -0 .0 TE 56 IN ti ON 10 8 00 44 EY ve ID 33 20 20 AI AZ 40 11 11 D IL OL 1 PH CH E AR AE 50 MA L 0 CY S MG 03 TA 93 BL 8 ET # 03 93 53 01 01 8. 2 RI 86 GA Ac 74 -0 -0 00 TE 56 IN ti 60 8- 8- 0 45 EY ve 11 20 20 AI 11 11 11 D IL 0 PH CH AR AE MA L [...] 80 6- 6- 00 71 LD ve AL 01 20 20 AI AM 10 10 [...] TA 8 BL # ET 03 93 AL 00 09 09 1 18 8 RI [...] 1 20 10 EA 18 AR Ac AL 11 -0 -[address] 94 NO [...] 00 14 7 RI 74 GA Ac AL 17 -1 -2 .0 TE 49 IN ti OF 25 0- 8- 00 59 EY ve LO 31 20 20 AI XA 26 08 08 D IL CI 0 PH CH N AR AE [...] #3 93 CA 8 PS UL E AL 60 03 04 00 4. 6 RI [...] 34 6- 0- 00 34 Av ve AL 59 20 20 AI ai ED 31 [...] 00 20 10 RI 72 No Ac AL 17 -2 -1 .0 TE 61 t [...] 00 10 5 RI 72 No Ac AL 17 -0 -0 .0 TE 30 t ti OF 25 4- 7- 00 21 Av ve LO 31 20 20 AI ai XA 26 08 08 D la CI 0 PH bl N AR e HC M L #3 50 93 0 8 MG TA B AL 00 03 04 00 8. 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, complet TY 015 NON-HIS ed 14:15 PANIC KIT complet EXPIRAT 015 016 ed ION 14:15 DATE SYMPTOM YES complet S 015 ed 14:15 REASON REVISIT complet FOR 015 /ANNUAL ed REQUEST 14:15 FAMILY TESSA G VISIT SPECIME URINE complet N 015 ed SOURCE 14:15 PREGNAN NO complet T 015 ed 14:15 CHART [id number] complet NUMBER 015 88 ed 14:15 Chlamyd [...] Procedures Procedure DOS Code Location Performer Comment [facility] [address] [place] MODALITY 7 1/> AREAS CHIROPRAC TRACTION TIC CENTE MECHANICA L MANUAL 61409 [place] THERAPY 7 TQS 1/> CHIROPRAC REGIONS TIC CENTE EACH 15 MINUTES CHIROPRAC 19682 [place] TIC 7 MANIPLTV CHIROPRAC TX TIC CENTE EXTRASPIN AL 1/> REGION CHIROPRAC 46825 [place] TIC 7 MANIPULAT CHIROPRAC CHIROPRAC [place] T[place] CENT[place] TIC CENTE SPINAL 3-4 REGIONS CHIROPRAC 42547 [place] TIC 7 MANIPULAT CHIROPRAC [place] T[place] CENT[place] SPINAL 3-4 REGIONS MANUAL 29313 [place] THERAPY 7 TQS 1/> CHIROPRAC REGIONS TIC CENTE EACH 15 MINUTES CHIROPRAC 24230 [place] TIC 7 MANIPLTV CHIROPRAC TX TIC CENTE EXTRASPIN AL 1/> REGION APPL 38186 [place] MODALITY 7 1/> AREAS CHIROPRAC CHIROPRAC TRACTION TIC CENTE TIC CENTE MECHANICA L APPL 56427 [place] MODALITY 7 1/> AREAS CHIROPRAC CHIROPRAC TRACTION TIC CENTE TIC CENTE MECHANICA L CHIROPRAC 28952 [place] TIC 7 MANIPLTV CHIROPRAC TX TIC CENTE EXTRASPIN AL 1/> REGION MANUAL 70542 [place] THERAPY 7 TQS 1/> CHIROPRAC REGIONS TIC CENTE EACH 15 MINUTES CHIROPRAC 55478 [place] TIC 7 MANIPULAT CHIROPRAC [place] SPINAL 3-4 REGIONS INJECTION J0696 NICOLASA BALDWIN 7 CEFTRIAXO NE SODIUM PER 250 MG CUL BACT 06941 [facility] XCPT 7 MEM HOSP [facility] URINE INC INC BLOOD/STO OL AEROBIC ISOL [facility]IROPRAC 13663 [place] TIC 7 MANIPULAT CHIROPRAC CHIROPRAC [place] T[place] CENTE TIC CENTE SPINAL 3-4 REGIONS MANUAL 16182 [place] JAUREGUI THERAPY 7 TQS 1/> CHIROPRAC REGIONS TIC CENTE EACH 15 MINUTES CHIROPRAC 73892 [place] JAUREGUI TIC 7 MANIPLTV CHIROPRAC TX TIC CENTE EXTRASPIN AL 1/> REGION MANUAL 67888 [place] JAUREGUI THERAPY 6 TQS 1/> CHIROPRAC REGIONS TIC CENTE EACH 15 MINUTES CHIROPRAC 82449 [place] JAUREGUI TIC 6 MANIPLTV CHIROPRAC TX TIC CENTE EXTRASPIN AL 1/> REGION CHIROPRAC 04696 [place] JAUREGUI TIC 6 MANIPULAT CHIROPRAC [place] SPINAL 1-[address] [place] [address] [place] SANTAMARIA ABDOMEN & 6 MEDICAL PELVIS IMAGING W/O ASS CONTRAST MATERIAL BLOOD 33582 [facility] COUNT 6 [facility] COMPLETE INC INC AUTO&AUTO DIFRNTL WBC COMPREHEN 05112 [facility] SIVE 6 [facility] [place] [address] [facility] AMYLASE 6 [place] [address] [facility] INFUSION 6 [facility] THERAPY/P INC INC ROPHYLAXI S /DX 1ST TO 1 HR THERAPEUT 48996 [facility] IC 6 [facility] INJECTION INC INC IV PUSH EACH NEW DRUG URNLS DIP 96478 [facility] 6 [facility] STICK/TAB INC INC [place] [address] [facility] LIPASE 6 [facility]OS[facility] INC INC CHIROPRAC 29157 [place] JAURE[place] TIC 6 AMA MANIPLTV CHIROPRAC TX TIC CENTE EXTRASPIN AL 1/> REGION MANUAL 02487 [place] JAUREGUI THERAPY 6 AMA TQS 1/> CHIROPRAC REGIONS TIC CENTE EACH 15 MINUTES CHIROPRAC 84850 [place] JAUREGUI TIC 6 AMA MANIPULAT CHIROPRAC [place] T[place] CENTE SPINAL 1-2 REGIONS CHIROPRAC 54127 [place] JAUREGUI TIC 6 AMA MANIPULAT CHIROPRAC [place] T[place] CENTE SPINAL 1-2 REGIONS CHIROPRAC 13097 [place] JAUREGUI TIC 6 AMA MANIPLTV CHIROPRAC TX TIC CENTE EXTRASPIN AL /> REGION MANUAL 13232 [place] JAUREGUI THERAPY 6 AMA TQS 1/> CHIROPRAC REGIONS TIC CENTE EACH 15 MINUTES BLOOD 75509 [facility] COUNT 6 [facility] COMPLETE INC INC AUTO&AUTO DIFRNTL [facility] G0378 [facility] OBSERVATI 6 [facility] ON INC INC SERVICE PER HOUR COLLECTIO 84330 [facility] N VENOUS 6 [facility] BLOOD INC INC VENIPUNCT URE BASIC 65408 [facility] METABOLIC 6 [facility] PANEL INC INC CALCIUM TOTAL URNLS DIP 03153 [facility] 6 [facility] STICK/TAB INC INC LET REAGENT AUTO MICROSCOP Y COLLECTIO 34490 [facility] N VENOUS 6 [facility] HOS[facility]OS[facility] BLOOD INC INC VENIPUNCT URE BLOOD 91578 [facility] COUNT 6 MEM H[facility] MEM [facility]OS[facility] [place] [address] [facility], SELWYN SURG 6 LLC MAREN PATHOLOGY GROSS&JAZMYN ROSCOPIC EXAM TX PROC G0238 [facility]AR [facility] IMPRV 6 [facility] RESP INC INC FUNCT NOT G0237 FCE-FCE 15MIN LAPS 88634 [facility] W/VAG 6 PHYSICIAN ALANNA HYSTERECT S GROUP 250 GM/&RMVL TUBE&/OVA POLI ANESTHESI 49001 COMMUNITY FEEBACK A VAGINAL 6 ANESTH REE OF THE HYSTERECT [facility] G0378 [facility] OBSERVATI 6 [facility]OS[facility] ON INC INC SERVICE PER HOUR BLOOD 50891 [facility] COUNT [address] [facility] HEMOGLOBI INC INC N GONADOTRO 70017 [facility] PIN 6 [facility] H[facility] CHORIONIC INC INC QUALITATI VE BLOOD 61483 [facility] COUNT 6 MEM H[facility]OS[facility] COMPLETE INC INC AUTO&AUTO DIFRNTL WBC COLLECTIO 21106 [facility] N VENOUS 6 MEM HOS[facility] [place] [address] [facility] THYROID 6 MEM HOS[facility] STIMULATI INC INC NG HORMONE TSH CREATINE 42414 [facility] KINASE 6 [facility] H[facility] TOTAL INC INC CYANOCOBA 77882 [facility] ANICETO 6 [facility] H[facility] VITAMIN INC INC B-12 [place] [address] [facility] FERRITIN 6 MEM HOSP MEM HOSP INC INC BASIC 55353 [facility] METABOLIC 6 MEM HOSP [facility]OS[facility] PANEL INC INC CALCIUM TOTAL HEMOGLOBI 90725 [facility] N 6 MEM HOSP MEM HOSP GLYCOSY[place] [address] [facility] FOLIC 6 [facility] HOS[facility] ACID INC INC SERUM CHIROPRAC 53651 [place] JAUREGUI TIC 6 AMA MANIPULAT CHIROPRAC [place] TIC CENTE SPINAL 1-2 REGIONS CHIROPRAC 74365 [place] JAUREGUI TIC 6 AMA MANIPLTV CHIROPRAC TX TIC CENTE EXTRASPIN AL 1/> REGION NEEDLE 58996 [facility] EMG EA 6 MEM HOSP [facility] EXTREMTY INC INC W/PARASPI NL AREA COMPLETE NERVE 96278 [facility] CONDUCTIO 6 MEM HOSP [facility]OS[facility] N STUDIES INC INC 3-4 STUDIES CHIROPRAC 05411 [place] TIC 6 DANETTE MANIPLTV CHIROPRAC TX TIC CENTE EXTRASPIN AL 1/> REGION CHIROPRAC 60717 [place] TIC 6 DANETTE MANIPULAT CHIROPRAC [place] TX TIC CENTE SPINAL 1-[place] [address] [facility], [place] SURG 6 LLC [facility] PATHOLOGY GROSS&JAZMYN ROSCOPIC EXAM ENDOMETRI 71872 [facility] AL BX 6 PHYSICIAN ALANNA W/WO S GROUP ENDOCERVI X BX W/O DILAT SPX [facility]IROPRAC 96353 [place] TIC 6 MANIPLTV CHIROPRAC TX TIC CENTE EXTRASPIN AL 1/> REGION DIAGNOSTI G0204 [place] YASMIN C 6 MEDICAL HOPE MAMMOGRAP IMAGING HY INCL ASS CAD WHEN PERF; BILAT CHIROPRAC 52160 [place] TIC 6 MANIPULAT CHIROPRAC [place] TIC CENTE SPINAL 1-2 REGIONS [facility] [address] [place] YASMIN AIDED 6 MEDICAL HOPE DETECTION IMAGING DX ASS MAMMOGRAP HY CYTP C/V 34446 [facility], PICKLESIM AUTO THIN 6 LLC ER JR RACHEL LYR PREPJ SCR MNL RESCR PHYS [facility]AC 33105 [place] TIC 6 MANIPULAT CHIROPRAC [place] TIC CENTE SPINAL 1-2 REGIONS CHIROPRAC 34973 [place] TIC 6 MANIPLTV CHIROPRAC TX TIC CENTE EXTRASPIN AL 1/> REGION MANUAL 18014 [place] THERAPY 6 TQS 1/> CHIROPRAC REGIONS TIC [place]ENTE EACH [address] [place] [address] [facility] THYROXINE 6 MEM HOSP [facility]OS[facility] TOTAL INC INC THYROID 79023 [facility] HORM 6 [facility] UPTK/THYR INC INC OID HORMONE BINDING RATIO BLOOD 32420 [facility] COUNT 6 [facility] HOS[facility]OS[facility] COMPLETE INC INC AUTO&AUTO DIFRNTL WBC COLLECTIO 48105 [facility] N VENOUS 6 MEM HOS[facility] [place] [address] [facility] THYROID 6 MEM HOS[facility]OS[facility] STIMULATI INC INC NG HORMONE TSH GONADOTRO 42330 [facility] PIN 6 MEM HOSP MEM HOSP LUTEINIZI INC INC NG HORMONE GONADOTRO 64313 [facility] PIN 6 MEM HOSP MEM HOS[facility] FOLLICLE INC INC STIMULATI NG HORMONE BASIC 48315 [facility] METABOLIC 6 [facility] [place] [address] [place] SANTAMARIA ALL TRANSVAGI 6 MEDICAL NAL IMAGING ASS CHIROPRAC 03267 [place] TIC 6 DANETTE MANIPLTV CHIROPRAC TX TIC CENTE EXTRASPIN AL 1/> REGION CHIROPRAC 34905 [place] TIC 6 DANETTE MANIPULAT CHIROPRAC [place] TIC CENTE SPINAL 1-2 [place] MANUAL 97307 [place] THERAPY 6 DANETTE TQS 1/> CHIROPRAC REGIONS TIC CENTE EACH 15 MINUTES MANUAL 99123 [place] THERAPY 6 DANETTE TQS 1/> CHIROPRAC REGIONS TIC CENTE EACH 15 MINUTES CHIROPRAC 73049 [place] TIC 6 DANETTE MANIPULAT CHIROPRAC [place] T[place] C[place] SPINAL 1-2 REGIONS CHIROPRAC 61727 [place] TIC 6 DANETTE MANIPLTV CHIROPRAC TX TIC CENTE EXTRASPIN AL 1/> REGION THERAPEUT 80596 [place] IC PX 1/> 6 DANETTE AREAS CHIROPRAC EACH 15 TIC CENTE MIN EXERCISES THERAPEUT 40803 [place] PX 1/> 6 AMA AREAS CHIROPRAC EACH 15 TIC CENTE MIN EXERCISES CHIROPRAC 00973 [place] TIC 6 AMA MANIPULAT CHIROPRAC [place] TIC CENTE SPINAL 1-2 REGIONS APPL 55127 [place] MODALITY 6 AMA 1/> AREAS CHIROPRAC TRACTION TIC CENTE MECHANICA L APPL 93428 [place] MODALITY 6 1/> AREAS CHIROPRAC CHIROPRAC TIC CENTE TIC CENTE ULTRASOUN D EA 15 MIN CHIROPRAC 23383 [place] TIC 6 AMA MANIPLTV CHIROPRAC TX TIC CENTE EXTRASPIN AL 1/> REGION MANUAL 60943 [place] THERAPY 6 AMA TQS 1/> CHIROPRAC REGIONS TIC CENTE EACH 15 MINUTES MANUAL 94678 [place] THERAPY 6 AMA TQS 1/> CHIROPRAC REGIONS TIC CENTE EACH 15 MINUTES CHIROPRAC 02760 [place] TIC 6 AMA MANIPLTV CHIROPRAC TX TIC CENTE EXTRASPIN AL 1/> REGION APPL 94313 [place] MODALITY 6 AMA 1/> AREAS CHIROPRAC TIC CENTE ULTRASOUN D EA 15 MIN APPL 93394 [place] MODALITY 6 1/> AREAS CHIROPRAC CHIROPRAC TRACTION TIC CENTE TIC CENTE MECHANICA L APPL 31088 [place] MODALITY 6 AMA 1/> AREAS CHIROPRAC ELEC TIC CENTE STIMJ UNATTENDE D CHIROPRAC 25109 [place] TIC 6 AMA MANIPULAT CHIROPRAC [place] TIC CENTE SPINAL 1-2 REGIONS THERAPEUT 45268 [place] IC PX 1/> 6 AMA AREAS CHIROPRAC EACH 15 TIC CENTE MIN EXERCISES THERAPEUT 35760 [place] IC PX 1/> 6 DANETTE DANETTE AREAS EACH 15 MIN EXERCISES APPL 79152 [place] MODALITY 6 DANETTE DANETTE 1/> AREAS ELEC STIMJ UNATTENDE D APPL 17705 [place] MODALITY 6 DANETTE DANETTE 1/> AREAS TRACTION MECHANICA L APPL 37627 [place] MODALITY 6 DANETTE DANETTE 1/> AREAS ULTRASOUN D EA 15 MIN MANUAL 15123 [place] THERAPY 6 DANETTE TQS 1/> CHIROPRAC REGIONS TIC CENTE EACH 15 MINUTES CHIROPRAC 82086 [place] TIC 6 DANETTE DANETTE MANIPLTV TX EXTRASPIN AL 1/> REGION CHIROPRAC 55992 [place] TIC 6 DANETTE DANETTE MANIPULAT [place] SPINAL 1-2 REGIONS CHIROPRAC 08706 [place] TIC 6 DANETTE DANETTE MANIPLTV TX EXTRASPIN AL 1/> REGION MANUAL 90689 [place] THERAPY 6 DANETTE DANETTE TQS 1/> REGIONS EACH 15 MINUTES APPL 65007 [place] MODALITY 6 DANETTE DANETTE 1/> AREAS ULTRASOUN D EA 15 MIN APPLICATI 41281 [place] ON 6 DANETTE DANETTE MODALITY 1/> AREAS HOT/COLD PACKS APPL 99109 [place] MODALITY 6 DANETTE DANETTE 1/> AREAS TRACTION MECHANICA L APPL 85821 [place] MODALITY 6 DANETTE DANETTE 1/> AREAS ELEC STIMJ UNATTENDE D CHIROPRAC 46040 [place] TIC 6 DANETTE DANETTE MANIPULAT [place] SPINAL 1-2 REGIONS APPL 53242 [place] MODALITY 6 DANETTE 1/> AREAS CHIROPRAC ELEC TIC CENTE STIMJ UNATTENDE D APPL 30631 [place] MODALITY 6 DANETTE 1/> AREAS CHIROPRAC TRACTION TIC CENTE MECHANICA L APPL 81534 [place] MODALITY 6 DANETTE 1/> AREAS CHIROPRAC TIC CENTE ULTRASOUN D EA 15 MIN APPLICATI 86863 [place] ON 6 MODALITY CHIROPRAC CHIROPRAC 1/> AREAS TIC CENTE TIC CENTE HOT/COLD PACKS MANUAL 96121 [place] LUKING THERAPY 6 DANETTE TQS 1/> CHIROPRAC REGIONS TIC CENTE EACH 15 MINUTES CHIROPRAC 33025 [place] TIC 6 DANETTE DANETTE MANIPLTV TX EXTRASPIN AL 1/> REGION MANUAL 70300 [place] LUKING THERAPY 6 DANETTE DANETTE TQS 1/> REGIONS EACH 15 MINUTES APPLICATI 50640 [place]UK[place] ON 6 DANETTE DANETTE MODALITY 1/> AREAS HOT/COLD PACKS APPL 37867 [place] MODALITY 6 DANETTE DANETTE 1/> AREAS ULTRASOUN D EA 15 MIN APPL 41078 [place] MODALITY 6 DANETTE DANETTE 1/> AREAS ELEC STIMJ UNATTENDE D CHIROPRAC 83841 [place] TIC 6 DANETTE DANETTE MANIPULAT [place] SPINAL 3-4 REGIONS CTA ABDL 67093 [facility] [place] AORTA&BI 6 RADIOLOGY LD IV ALL ILIOFEM W/CONTRAS T&POSTP CT LUMBAR 71082 [facility] [place] SPINE 6 RADIOLOGY LD IV ALL W/O CONTRAST MATERIAL DRUG SCR G0434 COMBINED COMBINED NOT 6 PHYSICIAN PHYSICIAN CHROMATOG S LA S LA RAPHIC; ANY NUMBER PT ENC DRUG TST G0477 COMBINED COMBINED PRESUMP;C 6 PHYSICIAN PHYSICIAN PBL BEING S LA S LA READ DC OPT OBV ONLY ECG 43483 [facility] MOE JR ROUTINE 6 [facility] W/LEAST P 12 LDS I&R ONLY INJECTION J0696 NICOLASA BALDWIN 6 DILMA DILMA CEFTRIAXO NE SODIUM PER 250 MG HEPB 54103 [facility] VACCINE 6 [facility] 3 TH DEPT [facility] DEPT DOSE KHANG KHANG SCHEDULE FOR IM USE DIAGNOSTI G0204 [facility] Humphries 6 [facility] MAMMOGRAP INC INC HY INCL CAD WHEN PERF; BILAT SMR PRIM 17845 [facility] SRC WET [address] [facility] DE[facility] DEPT NFCT AGT KHANG KHANG IADNA 04570 [facility] CHLAMYDIA 5 [facility] DEPT [facility] DEPT TRACHOMAT KHANG KHANG IS AMPLIFIED PROBE TQ IADNA 96752 [facility] NEISSERIA 5 [facility] DE[facility] DEPT GONORRHOE KHANG KHANG AE AMPLIFIED PROBE TQ PH BODY 24795 [facility] FLUID NOT 5 [facility] DEPT [facility] DEPT ELSEWHERE KHANG KHANG SPECIFIED ALL Q0112 [facility] POTASSIUM 5 [facility] DEPT [facility] DEPT HYDROXIDE KHANG KHANG PREPARATI ONS URNLS DIP 36124 [facility] 5 DISTRICT DISTRICT STICK/TAB [facility] DEPT [facility] DEPT LET RGNT [facility] NON-AUTO W/O MICRSCP AMINES 59165 [facility] VAGINAL 5 [facility] FLUID [facility] DEPT [facility] DEPT QUALITATI KHANG KHANG VE WET Q0111 [facility] CHRISTIAN 5 [facility] INCL PREP [facility] DEPT [facility] DEPT VAGINAL [facility] CERV/[place] [address] [place] ALL ABDOMEN & 5 MEDICAL PELVIS IMAGING W/O ASS CONTRAST MATERIAL DRUG SCR G0434 COMBINED COMBINED NOT 5 PHYSICIAN PHYSICIAN CHROMATOG S LA S LA RAPHIC; ANY NUMBER PT ENC INJECTION J0696 NICOLASA BALDWIN 5 DILMA DILMA CEFTRIAXO NE SODIUM PER 250 MG INJECTION J0696 NICOLASA BALDWIN 5 DILMA DILMA CEFTRIAXO NE SODIUM PER 250 MG DIAGNOSTI G0204 [place] YASMIN C 4 MEDICAL HOPE MAMMOGRAP IMAGING HY INCL ASS CAD WHEN PERF; BILAT OPHTH 13545 [facility] 4 XM&EVAL COMPRHNSV ESTAB PT 1/> POLYSOM 61086 [facility] 6/>YRS 1 Y Y SLEEP 4/> HOSPITAL [place] [address] PARTHA CHAVIS CLOSTRIDI 1 [facility] UM INC INC DIFFICILE TOXIN 3D 10135 [facility]AVIS RENDERING 1 [facility] INC INC W/INTERP& POSTPROC DIFF WORK STATION BLOOD 79877 [facility] CHAVIS COUNT [address] [facility] COMPLETE INC INC AUTO&AUTO DIFRNTL WBC CUL BACT 75189 [facility] CHAVIS STOOL 1 [facility] AEROBIC INC INC ISOL SALMONELL A&[place] [address] PAR[facility] CHAVIS INFUSION 1 [facility] THER INC INC PROPH ADDL SEQUENTIA [place] [address] [place] [address] [facility] ABDOMEN & 1 [facility] PELVIS INC INC W/[place] [address] [facility] CHAVIS INFUSION 1 [facility] THERAPY/P INC INC ROPHYLAXI S /DX 1ST TO 1 HR URNLS DIP 72979 [facility] CHAVIS 1 [facility] STICK/TAB INC INC LET REAGENT AUTO MICROSCOP Y BLOOD 16084 [facility] CHAVIS OCCULT 1 [facility] PEROXIDAS INC INC E ACTV QUAL FECES 1-3 SPEC COMPREHEN 34499 [facility] CHAVIS SIVE [address] [facility] METABOLIC INC INC PANEL CARBON 41911 [place] DEMPSE[place] MONOXIDE 1 MEDICAL JAM DIFFW/CAP SERV FOUNDATIO BRNCDILAT 91849 [facility] CHAVIS RSPSE 1 [facility] SPMTRY INC INC PRE&POST- BRNCDILAT ADMN FUNCTIONA 13710 [facility] CHAVIS L 1 [facility] RESIDUAL INC INC CAPACITY OR RESIDUAL VOLUME DETER 82415 PRATHA CHAVIS MALDISTRI 1 [facility] BJ OF INC INC INSPIRED GAS N WSHOT CURVE DETER 58584 [facility] CHAVIS AIRWY 1 [facility] CLOSING INC INC VOL 1 [place] [address] PARTHA CHAVIS THYROID [address] [facility] STIMULATI INC INC NG HORMONE TSH OPHTH 27145 LEANA SCIFRES MEDICAL 0 VISION ANG XM&EVAL COMPRHNSV ESTAB PT 1/> ARTHROCEN 08587 [facility] PETTEY TESIS 0 PHYSICIAN JAM ASPIR&/IN S GROUP J SMALL JT/BURSA W/O US INJECTION J0696 ARNOLD ARNOLD 0 DILMA DILMA CEFTRIAXO NE SODIUM PER 250 MG EXC B9 90413 JOSIAH JOHNSTONSTAD LESION 8 , REFUGIO HUFF MRGN XCP SK TG T/A/L 1.1-2.0 CM LEVEL III 17932 PATHOLOGY PATHOLOGY SURG 8 & & PATHOLOGY CYTOLOGY CYTOLOGY LAB LAB GROSS&JAZMYN ROSCOPIC EXAM FIBRIN 53577 [facility] CHAVIS DGRADJ 8 [facility] PRODUCTS INC INC D-DIMER QUAL/SEMI FILIBERTO ECG 47159 [facility] CHAVIS ROUTINE 8 [facility] ECG INC INC W/LEAST 12 LDS TRCG ONLY W/O I&R PRESSURIZ 17692 [facility]A CHAVIS ED/NONPRE 8 [facility] SSURIZED INC INC INHALATIO N TREATMENT RADIOLOGI 70199 [facility] HOFFMAN C EXAM 8 [facility] [place] CHEST 2 IMAGING VIEWS ASSOCIATE FRONTAL&L S ATERAL BLOOD 34228 [facility] CHAVIS COUNT 8 [facility] COMPLETE INC INC AUTO&[place] [address] PAR[facility]A CHAVIS TROPONIN 8 [facility] QUANTITAT INC INC [place] CREATINE 29142 PARTHA CHAVIS KINASE MB 8 [facility] FRACTION INC INC ONLY CREATINE 50588 [facility] CHAVSI KINASE 8 [facility] TOTAL INC INC BASIC 12001 PAR[facility] CHAVIS METABOLIC 8 [facility] PANEL INC INC CALCIUM TOTAL RADEX 90583 [facility] CALCANEUS 8 MEDICAL [place] MINIMUM IMAGING 2 VIEWS ASSOCIATE S APPLICATI 31990 ELANA SOWOODN, ON SHORT 8 NATIONAL ISMAEL LEG CORPORATI O SPLINT ON CALF FOOT LIPID 48497 [facility]AVIS PANEL 8 [facility] INC INC COMPREHEN 33996 [facility] CHAVIS SIVE 8 [facility] METABOLIC INC INC PANEL BLOOD 56446 [facility] CHAVIS COUNT 8 [facility] COMPLETE INC INC AUTO&AUTO DIFRNTL WBC RHEUMATOI 08830 [facility] D FACTOR 8 [facility] QUANTITAT INC INC [place] ANTINUCLE 50994 [facility] CHAVIS AR 8 [facility] ANTIBODIE INC INC S AG SEDIMENTA 35433 [facility] CHAVIS TION RATE 8 [facility] RBC INC INC NON-AUTOM ATED INCISION 44192 JOSIAH RAHMAN & 8 , REFUGIO , REFUGIO DRAINAGE ABSCESS SIMPLE/SI NGLE RADEX ABD 79631 DIANA DAVIDSON COMPL 8 MEDICAL JACKIE P AQT ABD IMAGING W/S/E/D ASSOCIATE VIEWS 1 S VIEW CH ADMN SET A7003 YOUR YOUR SM VOL 8 PHARMACY PHARMACY NONFIL [employer] [facility] PNEUMAT NEBULIZR DISPBL NEBULIZER E0570 LB ASHER WITH 8 HOME MED HOME MED COMPRESSO EQUIP. EQUIP. R [employer] OPHTH 20963 GT DEL REAL, [facility] 8 JENNI A JENNI A XM&EVAL COMPRE NEW PT 1/> VST LIPID 80519 COMBINED COMBINED PANEL 8 PHYSICIAN PHYSICIAN S LAB S LAB GLUC BLD 44417 DHS/CO [facility] GLUC MNTR 8 [facility] [place] [facility] CLEARED BANK ACCT FDA SPEC HOME USE RADEX 49297 [facility] SHELLY GRIFFIN, G ANKLE 8 RADIOLOGY T COMPLETE MINIMUM 3 VIEWS CYTP 98975 DHS/CO PARTHA CERV/VAG 8 [facility]ALTH [facility] AUTO THIN [facility] LAYER B[facility] ACCT PREP MNL SCREEN BLOOD 68656 DHS/CO PARTHA COUNT 8 [facility] HEMOGLOBI [facility] N BANK ACCT GLUC BLD 13985 [facility]/CO PARTHA GLUC MNTR 8 [facility] DEV [facility] CLEARED BANK ACCT FDA SPEC HOME USE DUP-SCAN 65227 [facility] [place] AIMEE, XTR VEINS 8 RADIOLOGY AMY G UNILATERA L/LIMITED STUDY Encounters Encounter Start End Date Code Location Performer Type Date OFFICE 11070 NICOLASA BALDWIN OUTPATIEN 7 7 T VISIT 15 MINUTES HOSPITAL [facility] - 7 7 [facility] OUT[facility]IEN INC T EMERGENCY 67199 VERONICA DUDLEY 6 6 PHYSICIAN DEPARTMEN [facility] PLL[facility] T VISIT HIGH/URGE NT SEVERITY EMERGENCY 25106 [facility] 6 6 [facility] DEPARTMEN INC T VISIT MODERATE SEVERITY HOSPITAL [facility] - 6 6 [facility] OUTPATIEN [facility] T OFFICE 65831 NICOLASA CASTROPATIDONNA 6 6 T VISIT 15 MINUTES HOSPITAL [facility] - [address] [facility] OUTPATIEN [facility] - [address] [facility] OUTPATIEN [facility] - [address] [facility] OUTPATIEN [facility] OFFICE 12097 [facility] SHORAHEEM-M OUTPATIEN 6 6 PHYSICIAN OGERIKA T NEW 45 S GROUP JAL MINUTES PERIODIC 07330 [facility] PREVENTIV 6 6 PHYSICIAN E MED EST S GROUP PATIENT 40-64YRS HOSPITAL [facility] - [address] [facility] OUTPATIEN CRITICAL ACCESS HOSPITAL HOSPITAL [facility] - [address] [facility] OUTPATIEN [facility] T OFFICE 13318 [facility] OUTPATIEN 6 6 PHYSICIAN T NEW 30 S GROUP MINUTES OFFICE 46378 [facility] OUTPATIEN 6 6 DANETTE DANETTE T NEW 30 MINUTES EMERGENCY 68258 MELINA VARGAS DEPT 6 6 SONIDO VISIT EMERGENCY HIGH PHYSI SEVERITY& THREAT FUNCJ OFFICE 99839 NICOLASA CASTROPATIEN 6 6 DILMA DILMA T VISIT 15 MINUTES EMERGENCY 66626 VERONICA DUDLEY 6 6 PHYSICIAN JAZMYN DEPARTMEN S, PLLC T VISIT MODERATE SEVERITY EMERGENCY 66192 VERONICA RENUSCH DEPT 6 6 PHYSICIAN TANNER VISIT S, PLLC HIGH SEVERITY& THREAT FUNCJ OFFICE 08435 ARNOLD ARNOLD OUTPATIEN 6 6 DILMA DILMA T VISIT 15 MINUTES EMERGENCY 45595 VERONICA DUDLEY 6 6 PHYSICIAN JAZMYN DEPARTBASHIR S, PLLC T VISIT MODERATE SEVERITY OFFICE 30193 NICOLASA NICOLASA OUTPATIEN 6 6 DILMA DILMA T VISIT 15 MINUTES OFFICE 59094 [facility] 6 6 [facility] T VISIT 5 HLTH DEPT [facility] DEPT MINUTES [facility] PARTHA - 6 6 [facility] OUTPATIEN INC T PERIODIC 32665 [facility] PREVENTIV 5 5 [facility] E MED EST HLTH DEPT [facility] DEPT PATIENT [facility] 40-64YRS OFFICE 38737 [facility] OUTPATIEN 5 5 [facility] T VISIT TH DEPT [facility] DEPT 15 [facility] MINUTES OFFICE 78222 PAR[facility] OLIVAS JR OUTPATIEN [address] MINUTES P OFFICE 62764 NICOLASA BALDWIN OUTPATIEN 5 5 DILMA DILMA T VISIT 15 MINUTES OFFICE 56224 NICOLASA BALDWIN OUTPATIEN 5 5 DILMA DILMA T VISIT 15 MINUTES OFFICE 48841 [facility] FLORY TOFernandez OUTPATIEN 5 5 PHYSICIAN T VISIT S GROUP 10 [facility]UTES [facility] 25822 [facility] 5 5 PHYSICIAN ION S GROUP NEW/[facility] PATIENT 40 MIN OFFICE 90658 NICOLASA BALDWIN OUTPATIEN 5 5 DILMA DILMA T VISIT 15 MINUTES HOSPITAL [facility] - 4 4 [facility] OUTPATIEN INC T OFFICE 32691 [facility] OUT[facility] 4 4 [facility] T VISIT [facility] DEPT [facility] DEPT 10 [facility] MINUTES Emergency SIVAN Dudley MD (ER) 3 02:47 3 02:52 [facility] UNIVERSIT - [address] [facility] T OFFICE 28221 SHELLY ADAMSDEMPSEY [facility] MEDICAL JAM T VISIT SERV 15 FOUNDATIO MINUTES OFFICE 02339 NICOLASA CASTANOEN 1 1 DILMA DILMA T VISIT 15 MINUTES HOSPITAL [facility] - [address] [facility] T EMERGENCY 41565 PARTH[facility] [address] [facility] T VISIT HIGH/URGE NT SEVERITY EMERGENCY 75744 SELWYN DUDLEY DEPT 1 1 EMERGENCY JAZMYN VISIT SERVICES HIGH SEVERITY& THREAT [facility] - 1 1 [facility] - 1 1 [facility] OFF[facility] 04586 NICOLASA BALDWIN OUTPATIEN 0 0 DILMA DILMA T VISIT 15 MINUTES OFFICE 21276 MARY JO CAMARGO JR CONSULTAT 0 0 GIANCARLO GIANCARLO ION NEW/ESTAB PATIENT 40 MIN OFFICE 67147 CIARANLYNDA BALDWIN OUTPATIEN 0 0 DILMA DILMA T VISIT 15 MINUTES OFFICE 71809 NICOLASA BALDWIN OUTPATIEN 0 0 DILMA DILMA T VISIT 15 MINUTES OFFICE 03581 [facility] 0 PHYSICIAN JAM T VISIT S GROUP 25 MINUTES OFFICE 37532 NICOLASA BALDWIN OUTPATIEN 0 0 DILMA DILMA T VISIT 15 MINUTES OFFICE 74841 CIARANLYNDA CIARANLYNDA OUTPATIEN 0 0 DILMA DILMA T VISIT 15 MINUTES OFFICE 55269 CIARANLYNDA BALDWIN OUTPATIEN 0 0 DILMA DILMA T VISIT 15 MINUTES OFFICE 75882 JOSIAH JOHNSTONSTEDDI CONSULTAT 8 8 , REFUGIO HUFF ION NEW/ESTAB PATIENT 30 MIN HOSPITAL [facility] - [address] [facility] T EMERGENCY 59463 ELANA KRUGER, 8 8 [facility] CORPORATI O T VISIT ON MODERATE SEVERITY EMERGENCY 40965 PAR[facility] [address] [facility] T VISIT LIMITED/M INOR PROB HOSPITAL PARTHA - [address] [facility] OUTPATIEN [facility] T EMERGENCY 96687 PARTHA 8 8 [facility] T VISIT HIGH/URGE NT SEVERITY OFFICE 24742 [facility] 8 8 [facility] T VISIT ASSOCIATE 15 S MINUTES HOSPITAL [facility] - 8 8 [facility] T EMERGENCY 41161 PAR[facility] 8 8 [facility] T VISIT LIMITED/M INOR PROB HOSPITAL [facility] - 8 8 [facility] T EMERGENCY 59327 ELANA KRUGER, 8 8 [facility] CORPORATI O T VISIT ON MODERATE SEVERITY HOSPITAL [facility] - 8 8 [facility] T OFFICE 54372 DHEERAJ ESQUEDA OUTPATIEN 8 8 DON R DON R T VISIT 15 MINUTES OFFICE 99540 JOSIAH RAHMAN CONSULTAT 8 8 , REFUGIO HUFF ION NEW/ESTAB PATIENT 15 MIN OFFICE 11989 DHEERAJ ESQUEDA OUTPATIEN 8 8 DON R DON R T NEW [address]ES [address] [facility], 8 8 SONIDO Pike [facility] EMERGENCY T VISIT [facility] MODERATE SEVERITY EMERGENCY 44934 PARTHA TIDWELL, 8 8 [facility] T VISIT PROF SERV LOW/MODER SEVERITY HOSPITAL [facility] - [address] [facility] OUTPATIEN [facility] T OFFICE 37604 DHS/CO [facility]A TOBIAS 8 8 HEALTH [facility]ALTH T VISIT [facility] 15 BANK ACCT MINUTES EMERGENCY 61199 [facility] 8 8 [facility] [place] Pike [facility] EMERGENCY T VISIT PHYS INC MODERATE SEVERITY PERIODIC 83399 DHS/CO [facility] PREVENTIV 8 8 [facility] [place] [facility] MED EST [facility] PATIENT BANK ACCT 18-39 YRS [facility] [place] [address] [facility]
--- OUTSIDE RECORDS SUMMARY | 2017-03-28 13:55 | External Medical Summary Rpt ---
Author Author , [facility] Organization [facility] Address Unknown Phone [email or web address] Care Team Providers Care Operations Research Scientist Name Role Phone ALLRAN JR GIANCARLO, ALLRAN Unavailable Unavailable JR GIANCARLO ALLRAN JR GIANCARLO, ALLRAN Unavailable Unavailable JR GIANCARLO ARNOLD, ARNOLD Unavailable Unavailable ARNOLD, ARNOLD Unavailable Unavailable ARNOLD DILMA, ARNOLD Unavailable Unavailable DILMA ARNOLD DILMA, ARNOLD Unavailable Unavailable DILMA JORGE JAM, JORGE JAM Unavailable Unavailable SANTAMARIA ALL, SANTAMARIA ALL Unavailable Unavailable LEO, BAKARI B, Unavailable Unavailable LEO BAKARI B THOMPSON ALANNA, THOMPSON Unavailable Unavailable [...] Unavailable Unavailable [facility] [place] [facility] Unavailable Unavailable [place], [facility] [place] [facility] [facility] [place] ELIAS, Ethan T, GRIFFIN, G Unavailable Unavailable T FEEBACK REE, FEEBACK Unavailable Unavailable REE ALEXA, ALEXA Unavailable Unavailable ALEXA JAZMYN, ALEXA Unavailable Unavailable JAZMYN [facility] Unavailable Unavailable [facility] AMY YU G, Unavailable Unavailable AGUILAR YUA G [facility] Unavailable Unavailable [facility], [facility] Unavailable Unavailable INC, [facility] DEL REAL AMINA, DEL REAL AMINA Unavailable Unavailable DEL REAL AMINA, DEL REAL AMINA Unavailable Unavailable DEL REALAMINATT A, Unavailable Unavailable DEL REAL, JENNI A [facility], Unavailable Unavailable [facility] JAUREGUI, JAUREGUI Unavailable Unavailable JAUREGUI AMA, JAUREGUI Unavailable Unavailable AMA [facility] PAYAL JR DWI, PAYAL Unavailable Unavailable JR DWI SHERWOOD DILMA, SHERWOOD Unavailable Unavailable DILMA LUKING, LUKING Unavailable Unavailable LUKING DANETTE, LUKING Unavailable Unavailable DANETTE LUKING DANETTE, LUKING Unavailable Unavailable DANETTE SELWYN ENGEL, Unavailable Unavailable SELWYN DEMPSEY JAM, Unavailable Unavailable DEMPSEY JAM STUART GEORGE, STUART Unavailable Unavailable GEORGE STUART, JACKIE P, Unavailable Unavailable STUART, JACKIE P Pelon ADLER, Unavailable Unavailable Pelon ADLER [facility], [facility] Unavailable Unavailable LAB, [facility] PETTEY JAM, PETTEY Unavailable Unavailable JAM JUSTINA RAMOS, Unavailable Unavailable PICKLEILANI MAHARAJ RACHEL FLORY TOD, FLORY TOD Unavailable Unavailable RENUSCH TANNER, RENUSCH Unavailable Unavailable TANNER [id number], Unavailable Unavailable [id number] Unavailable Unavailable [id number] [address] [id number], [facility] [address] # [id number] SCHULSTAD, REFUGIO, Unavailable Unavailable SCHULSTAD, REFUGIO SCIFRES ANG, SCIFRES Unavailable Unavailable ANG SHOJAEI-YUNG, Unavailable Unavailable SHOJAEI-YUNG SHOJAEI-YUNG Unavailable Unavailable JAL, SHOJAEI-YUNG JAL SMALL, OLVIN T, SMALL, Unavailable Unavailable OLVIN T SOKAN, ISMAEL O, Unavailable Unavailable SOKAN, ISMAEL O [facility] Un[facility] Unavailable Unavailable EMER[facility]Y [facility], [facility] SUZI ESQUEDA, Unavailable Unavailable SUZI ESQUEDA [facility], Unavailable Unavailable [facility] Unavailable Unavailable DEPT [facility] DEPT [facility] Unavailable Unavailable DEPT [facility] DEPT [facility] VILMA IV ALL, Unavailable Unavailable VILMA IV ALL RAGLAND, RAGLAND Unavailable Unavailable [facility] Unavailable [facility], Unavailable Unavailable [facility] Purpose Continuity of Care Document - [...] [id number] OTH SPEC 08-28-2016 [facility] NONINFECTIV [facility], [facility] ITIS & COLITIS K529 NONINFECTIV 08-28-2016 [facility] INC ITIS & COLITIS UNS K5900 CONSTIPATIO 08-28-2016 [facility] N [facility]ICAL UNSPECIFIED IMAGING ASS R109 UNSPECIFIED 08-28-2016 [facility] ABDOMINAL [facility]ICAL PAIN IMAGING ASS R140 ABDOMINAL 08-28-2016 [facility] DISTENSION [facility] GASEOUS IMAGING ASS R197 DIARRHEA 08-28-2016 [facility] UNSPECIFIED [facility]ICAL IMAGING ASS Z720 TOBACCO USE 08-28-2016 [facility] D259 LEIOMYOMA 06-25-2016 [facility] UNSPECIFIED 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 N852 HYPERTROPHY 06-25-2016 [facility] N920 EXCESS & 06-25-2016 [facility] FREQUENT PHYSICIANS MENSTRUATIO GROUP N W/REGULAR CYCLE N944 PRIMARY 06-25-2016 [facility] DYSMENORRHE PHYSICIANS A GROUP N946 DYSMENORRHE 06-25-2016 [facility] A [facility] UNSPECIFIED INC V90536 ENCOUNTER 06-21-2016 [facility] FOR [facility] PREPROCEDUR INC AL CARIOVASCUL AR EXAM D71173 ENCOUNTER 06-21-2016 [facility] FOR [facility] PREPROCEDUR INC AL LABORATORY EXAM G2581 RESTLESS 06-18-2016 [facility] LEGS [facility] SYNDROME INC M545 LOW BACK 06-18-2016 [facility] PAIN [facility] INC D35043 PAIN IN 06-18-2016 [facility] RIGHT LEG PHYSICIANS GROUP [id number] PAIN IN 06-18-2016 [facility] LEFT LEG PHYSICIANS GROUP [id number] PAIN IN LEG 06-18-2016 [facility] UNSPECIFIED INC R202 PARESTHESIA 06-18-2016 [facility] OF SKIN [facility] INC N63 UNSPECIFIED 05-29-2016 [facility] IN MEDICAL BREAST IMAGING ASS L20072 ENCOUNTER 05-23-2016 [facility], DIRECTOR OF HOUSING AND ENERGY SERVICES EXAM LLC GENERAL RTN W/O ABNORMAL FIND N951 MENOPAUSAL 05-21-2016 [facility] AND FEMALE [facility] CLIMACTERIC INC STATES N8320 UNSPECIFIED 05-17-2016 [facility] OVARIAN MEDICAL CYSTS IMAGING ASS N938 OTHER SPEC 05-17-2016 [facility] ABNORMAL MEDICAL UTERINE & IMAGING ASS VAGINAL BLEEDING I7389 OTHER 04-21-2016 [facility] [place] SPECIFIED RADIOLOGY PERIPHERAL VASCULAR 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 N390 URINARY 04-20-2016 [facility] EMERGENCY INFECTION PHYSI SITE NOT SPECIFIED X03301V STRAIN 04-20-2016 [facility] MUSCLE N EMERGENCY FASCIA & PHYSI TENDON LOW BACK INITIAL Y998 OTHER 04-20-2016 [facility] EXTERNAL N EMERGENCY CAUSE PHYSI STATUS G589 MONONEUROPA 04-13-2016 ARNOLD DILMA THY UNSPECIFIED Z5181 ENCOUNTER 01-09-2016 [facility] FOR [facility]ICIANS THERAPEUTIC LA DRUG LEVEL MONITORING Y39508 OTHER LONG 01-09-2016 COMBINED TERM PHYSICIANS CURRENT LA DRUG THERAPY I84887 CELLULITIS 01-02-2016 [facility] OF RIGHT PHYSICIANS, UPPER LIMB PLLC D703LQF HEAT 12-27-2015 [facility] EXHAUSTION PHYSICIANS, UNSPECIFIED PLLC INITIAL ENCOUNTER G51397 CELLULITIS 11-14-2015 [facility] OF BUTTOCK PHYSICIANS, PLLC Z23 ENCOUNTER 11-07-2015 [facility] FOR DISTRICT IMMUNIZATIO [facility] DEPT N KHANG Z111 ENCOUNTER 10-07-2015 [facility] SCREENING DISTRICT FOR [facility] DEPT RESPIRATORY KHANG TUBERCULOSI S N6001 SOLITARY 09-19-2015 [facility] CYST OF MEDICAL RIGHT IMAGING ASS BREAST N6002 SOLITARY 09-19-2015 [facility] CYST OF MEDICAL LEFT BREAST IMAGING ASS Z1239 ENCOUNTER 09-19-2015 [facility] OTHER [facility] SCREENING INC MALIG NEOPLASM BREAST N760 ACUTE 08-09-2015 [facility] VAGINITIS DISTRICT [facility] DEPT KHANG A62335 ENCOUNTER 08-09-2015 [facility] DIRECTOR OF HOUSING AND ENERGY SERVICES EXAM DISTRICT GENERAL RTN [facility] DEPT W/ABNORMAL KHANG FIND N23 UNSPECIFIED 06-04-2015 ARNLYNDA DILMA RENAL COLIC E279 DISORDER OF 06-02-2015 [facility] ADRENAL MEDICAL GLAND IMAGING ASS UNSPECIFIED K6389 OTHER 06-02-2015 [facility] SPECIFIED MEDICAL DISEASES OF IMAGING ASS INTESTINE V5869 LONG-TERM 12-17-2014 [facility] (CURRENT) PHYSICIANS USE OF LA OTHER MEDICATIONS 4619 ACUTE 12-02-2014 ARNOLD DILMA SINUSITIS, UNSPECIFIED 6828 CELLULITIS 10-04-2014 [facility] AND ABSCESS PHYSICIANS OF OTHER GROUP SPECIFIED SITE 80004 LUMP OR 07-20-2014 [facility] MASS IN [facility]OS[facility] BREAST INC 48721 OTHER 07-20-2014 [facility] SPECIFIED MEDICAL DISORDERS IMAGING ASS OF BREAST 71530 UNSPECIFIED 07-06-2014 [facility] ABNORMAL [facility] MAMMOGRAM [facility] DEPT KHANG 3674 PRESBYOPIA 06-14-2014 [facility] AMINA 76807 INSOMNIA 10-02-2010 [facility] 12845 OBESITY, 09-29-2010 [place] MEDICAL UNSPECIFIED SERV [facility] 4778 ALLERGIC 09-29-2010 [place] MEDICAL RHINITIS SERV DUE TO FOUNDATIO OTHER ALLERGEN 4918 OTHER 09-29-2010 [place] [facility] CHRONIC SERV BRONCHITIS [facility]AT[facility] 80112 ESOPHAGEAL 09-29-2010 [place] [facility] REFLUX SERV [facility] 5589 OTH&UNSPEC 09-15-2010 NICOLASA DILMA NONINFECTIO US GASTROENTER ITIS&COLITI S 5693 HEMORRHAGE 09-15-2010 ARNOLD DILMA OF RECTUM AND ANUS 40597 ABDOMINAL 09-09-2010 [facility] PAIN, MEDICAL UNSPECIFIED IMAGING ASS SITE 7831 ABNORMAL 09-08-2010 [facility] WEIGHT GAIN [facility] 18699 SHORTNESS 09-08-2010 [facility] OF BREATH [facility] INC 26592 OTHER 09-08-2010 [place] [facility] DYSPNEA AND SERV [facility] RESPIRATORY ABNORMALITI ES 7862 COUGH 09-08-2010 [place] [facility] 82773 OBSTRUCTIVE 08-18-2010 ARNLYNDA DILMA CHRONIC BRONCHITIS WITH EXACERBATIO N 7099 UNSPECIFIED 08-10-2010 MARY JO MAHARAJ DISORDER GIANCARLO OF SKIN&SUBCUT ANEOUS TISSUE 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 98265 GANGLION OF 06-20-2010 [facility] T[facility]YS[facility]IANS SHEATH GROUP 64566 UNSPECIFIED 06-20-2010 ARNOLD DILMA GANGLION 4660 ACUTE 05-11-2010 ARNOLD DILMA BRONCHITIS 6826 CELLULITIS 05-25-2008 SCHULSTAD, AND ABSCESS REFUGIO OF LEG EXCEPT FOOT 7062 SEBACEOUS 05-25-2008 SCHULSTAD, CYST REFUGIO 81362 UNSPECIFIED 05-20-2008 [facility] PYODERMA [facility] INC 5110 PLEURISY 04-11-2008 [facility] WITHOUT [facility] MENTION INC EFFUS/[place] [address] CHEST PAIN 04-11-2008 [facility] UNSPECIFIED [facility] 67473 ACHILLES 03-10-2008 [facility] TENDINITIS 26041 OTHER ANKLE 03-09-2008 [employer] SPRAIN AND [employer].IO 90967 PAIN IN 02-08-2008 [facility] JOINT, [facility] MULTIPLE INC SITES 79184 OVERWEIGHT 02-07-2008 ESQUEDASUZI NEGRETE 70136 UNSPEC 02-07-2008 DHEERAJ POLYARTHROP SUZI Bird ATHY/POLYAR THRIT OTH SPEC SITE 50412 ASTHMA, 11-27-2007 [facility] UNSPECIFIED HOME MED , [facility]QU[facility]. [facility] UNSPECIFIED STATUS 5990 URINARY 10-31-2007 [facility] EMERGENCY INFECTION PHYS INC SITE NOT SPECIFIED 23550 OTHER 10-31-2007 [facility] MALAISE AND N EMERGENCY FATIGUE PHYS INC 51119 VOMITING 10-31-2007 [facility] ALONE N EMERGENCY PHYS INC 7856 ENLARGEMENT 10-23-2007 [facility] OF [facility] PROF SERV 3670 HYPERMETROP 10-14-2007 YAJAIRA DEL REAL 3382 UNSPECIFIED 09-24-2007 [facility] DISORDER HEALTH OF LIPOID CENTRAL METABOLISM BANK ACCT V771 SCREENING 09-24-2007 [facility] FOR HEALTH DIABETES CENTRAL MELLITUS BANK ACCT 4659 ACUTE URIS 09-18-2007 [facility] OF N EMERGENCY UNSPECIFIED PHYS INC SITE 16121 PAIN IN 09-18-2007 [facility] [place] JOINT, RADIOLOGY ANKLE AND FOOT 94145 CONTUSION 09-18-2007 [facility] OF FOOT N EMERGENCY PHYS INC E8881 FALL 09-18-2007 [facility] RESULTING N EMERGENCY IN STRIKING PHYS INC AGAINST OTHER OBJECT 2662 OTHER 09-16-2007 [facility] B-COMPLEX HEALTH DEFICIENCIE CENTRAL S BANK ACCT V700 ROUTINE 09-16-2007 [facility] GENERAL HEALTH MEDICAL CENTRAL EXAM@HEALTH BANK ACCT CARE FACL 4538 ACUTE 09-04-2007 [facility] OTH SPECIFIED VEINS 7295 PAIN IN 09-04-2007 [facility] [place] SOFT RADIOLOGY TISSUES OF LIMB Medications Na ND Rx Da Fi Fi [...] 05 06 60 30 00 HO Ac AK 76 -3 -3 .0 00 ME ti [...] CA CY P NT HI AN A CY 00 05 [...] 05 06 60 30 00 HO Ac AK 76 -0 -0 .0 00 ME ti AZ 23 3- 2- 00 04 TO ve OL 72 20 20 02 WN AM 20 17 17 25 2 3 86 PH AR MG MA CY TA BL OF ET CY NT HI AN A AL 59 04 05 28 14 00 HO Ac AK 76 -2 -2 .0 00 ME ti [...] ve LO 19 20 20 08 WN AK 60 17 17 59 AM 3 02 [...] BL CY ET NT HI AN A 51 01 02 [...] ML NT HI AN A AZ 68 12 [...] UL E CY NT HI AN A BU 00 12 [...] G/ CY ML NT HI AN A DI 00 01 01 1 60 15 [...] 01 14 7 RI 86 GA Ac AK 86 -0 -0 .0 TE 56 IN ti OF 20 8- 8- 00 43 EY ve LO 07 20 20 AI XA 70 11 11 D SD CI 1 PH CH N AR AE HC MA L L CY S 50 0 03 MG 93 8 TA # B 03 93 ME 50 01 01 21 7 RI 86 GA Ac TR 11 -0 -0 .0 TE 56 IN ti ON 10 8- 8- 00 44 EY ve ID 33 20 20 AI AZ 40 11 11 D SD OL 1 PH CH E AR AE 50 MA L 0 CY S MG 03 TA 93 BL 8 ET # 03 93 53 01 01 8. 2 RI 86 GA Ac 74 -0 -0 00 TE 56 IN ti 60 8- 8- 0 45 EY ve 11 20 20 AI 11 11 11 D SD 0 PH CH AR AE MA L [...] 80 6- 6- 00 71 LD ve AK 01 20 20 AI AM 10 10 [...] TA 8 BL # ET 03 93 AK 00 09 09 1 18 8 RI [...] 1 20 10 EA 18 AR Ac AK 11 -0 -[address] 94 NO [...] CY OF CY NT HI AN A 00 09 09 00 [...] CY UL NT E HI AN A DI 00 08 09 00 30 10 RI 74 BU Ac AZ 17 -2 -1 .0 TE 75 RG ti EP 23 9- 1- 00 71 ES ve AM 92 20 20 AI S 5 67 08 08 D KE 0 PH LL MG AR Y M TA #3 BL 93 ET 8 CI 00 08 08 00 14 7 RI 74 GA Ac AK 17 -1 -2 .0 TE 49 IN ti OF 25 0- 8- 00 59 EY ve LO 31 20 20 AI XA 26 08 08 D SD CI 0 PH CH N AR AE HC M L L #3 S 50 93 0 8 MG TA B AZ 59 08 08 00 6[address] Ac IT 76 -1 -2 00 TE 52 EP ti HR 23 3- 8- 0 04 HE ve OM 06 20 20 AI NS YC 00 08 08 D IN 1 PH DO AR N 25 M R 0 #3 MG 93 8 TA BL ET DI 00 07 08 00 20 6 [...] E #3 O 93 8 DI 00 06 07 00 20 7 RI 73 BU Ac AZ 17 -3 -1 .0 TE 94 RG ti EP 23 0- 7- 00 83 ES ve AM 92 20 20 AI S 5 67 08 08 D KE 0 PH LL MG AR Y M TA #3 BL 93 ET 8 DI 00 04 05 00 20 [...] #3 93 CA 8 PS UL E AK 60 03 04 00 4. 6 RI [...] 34 6- 0- 00 34 Av ve AK 59 20 20 AI ai ED 31 [...] #3 BL 93 ET 8 AL 00 03 04 00 36 30 YO 15 No Ac BU 48 -2 -1 0. UR 82 t ti TE 79 7- 0- 00 4 Av ve RO 50 20 20 0 PH ai L 16 08 08 AR la AGUERO 0 MA bl L CY e 2. 5 MG /[address] CI 00 03 04 00 20 10 RI 72 No Ac AK 17 -2 -1 .0 TE 61 t ti OF 25 6- 0- 00 35 Av ve LO 31 20 20 AI ai XA 26 08 08 D la CI 0 PH bl N AR e HC M L #3 50 93 0 8 MG TA B CE 00 02 04 00 40 10 [...] 00 10 5 RI 72 No Ac AK 17 -0 -0 .0 TE 30 t ti OF 25 4- 7- 00 21 Av ve LO 31 20 20 AI ai XA 26 08 08 D la CI 0 PH bl N AR e HC M L #3 50 93 0 8 MG TA B DI 00 02 04 00 20 10 RI 72 No Ac AZ 17 -2 -0 .0 TE 24 t ti EP 23 9- 7- 00 12 Av ve AM 92 20 20 AI ai 5 67 08 08 D la 0 PH bl MG AR e M TA #3 BL 93 ET 8 AK 00 03 04 00 8. 2 RI 72 No Ac OM 60 -0 -0 00 TE 30 t ti ET 35 4- 7- 0 22 Av ve MERCADO 43 20 20 AI ai ZI 82 08 08 D la NE 1 PH bl AR e 25 M #3 MG 93 8 TA BL ET DI 00 02 03 00 20 20 [...] bl AR e M #3 93 8 AK 00 01 03 00 12 8 RI [...] HLTH DOSE DEPT DEPT SCHE KHANG KHANG PABLO FOR IM USE Procedures Procedure DOS Code Location Performer Comment APPL 04152 [place] MODALITY 7 1/> AREAS CHIROPRAC TRACTION TIC CENTE MECHANICA L CHIROPRAC 24096 [place] TIC 7 MANIPLTV CHIROPRAC TX TIC CENTE EXTRASPIN AL 1/> REGION MANUAL 70042 [place] THERAPY 7 TQS 1/> CHIROPRAC REGIONS TIC CENTE EACH 15 MINUTES CHIROPRAC 13214 [place] PAL[place] TIC 7 MANIPULAT CHIROPRAC CHIROPRAC [place] T[place] TIC CENTE SPINAL 3-4 REGIONS CHIROPRAC 33699 [place] TIC 7 MANIPULAT CHIROPRAC [place] T[place] CENTE SPINAL 3-4 REGIONS MANUAL 61019 [place] THERAPY 7 TQS 1/> CHIROPRAC REGIONS TIC CENTE EACH 15 MINUTES CHIROPRAC 79992 [place] TIC 7 MANIPLTV CHIROPRAC TX TIC CENTE EXTRASPIN AL 1/> REGION APPL 17693 [place] MODALITY 7 1/> AREAS CHIROPRAC CHIROPRAC TRACTION TIC CENTE TIC CENTE MECHANICA L APPL 86574 [place] MODALITY 7 1/> AREAS CHIROPRAC CHIROPRAC TRACTION TIC CENTE TIC CENTE MECHANICA L CHIROPRAC 39638 [place] TIC 7 MANIPLTV CHIROPRAC TX TIC CENTE EXTRASPIN AL 1/> REGION MANUAL 70350 [place] THERAPY 7 TQS 1/> CHIROPRAC REGIONS TIC CENTE EACH 15 MINUTES CHIROPRAC 05249 [place] TIC 7 MANIPULAT CHIROPRAC [place] T[place] C[place] SPINAL 3-4 REGIONS INJECTION J0696 NICOLASA BALDWIN 7 CEFTRIAXO NE SODIUM PER 250 MG CUL BACT 37850 [facility] XCPT 7 [facility]OS[facility] URINE INC INC BLOOD/STO OL AEROBIC ISOL CHIROPRAC 38677 [place] TIC 7 MANIPULAT CHIROPRAC CHIROPRAC [place] T[place] CENTE TIC CENTE SPINAL 3-4 REGIONS MANUAL 89735 [place] JAUREGUI THERAPY 7 TQS 1/> CHIROPRAC REGIONS TIC CENTE EACH 15 MINUTES CHIROPRAC 21762 [place] JAUREGUI TIC 7 MANIPLTV CHIROPRAC TX TIC CENTE EXTRASPIN AL 1/> REGION CHIROPRAC 43653 [place] JAUREGUI TIC 6 MANIPULAT CHIROPRAC [place] T[place] CENTE SPINAL 1-2 REGIONS MANUAL 68528 [place] JAUREGUI THERAPY 6 TQS 1/> CHIROPRAC REGIONS TIC CENTE EACH 15 MINUTES CHIROPRAC 42116 [place] JAUREGUI TIC 6 MANIPLTV CHIROPRAC TX TIC CENTE EXTRASPIN AL 1/> [place] [address] [facility] INFUSION 6 [facility] THERAPY/P INC INC ROPHYLAXI S /DX 1ST TO 1 HR THERAPEUT 23095 [facility] IC 6 [facility] INJECTION INC INC IV PUSH EACH NEW DRUG COMPREHEN 90578 [facility] SIVE 6 [facility] [place] [address] [facility] AMYLASE [address] [place] [address] [facility] ABDOMEN & 6 [facility]OS[facility] PELVIS INC INC W/O CONTRAST MATERIAL URNLS DIP 99861 [facility] 6 [facility] STICK/TAB INC INC LET REAGENT AUTO MICROSCOP Y BLOOD 74330 [facility] COUNT 6 [facility] COMPLETE INC INC AUTO&[place] [address] [facility] LIPASE 6 [facility]OS[facility] INC INC CHIROPRAC 21549 [place] JAUREGUI TIC 6 AMA MANIPULAT CHIROPRAC [place] T[place] CENTE SPINAL 1-2 REGIONS CHIROPRAC 97995 [place] JAUREGUI TIC 6 AMA MANIPLTV CHIROPRAC TX TIC CENTE EXTRASPIN AL 1/> REGION MANUAL 99717 [place] JAUREGUI THERAPY 6 AMA TQS 1/> CHIROPRAC REGIONS TIC CENTE EACH 15 MINUTES MANUAL 08499 [place] JAUREGUI THERAPY 6 AMA TQS 1/> CHIROPRAC REGIONS TIC CENTE EACH 15 MINUTES CHIROPRAC 46531 [place] JAUREGUI TIC 6 AMA MANIPLTV CHIROPRAC TX TIC CENTE EXTRASPIN AL 1/> REGION CHIROPRAC 85059 [place] JAUREGUI TIC 6 AMA MANIPULAT CHIROPRAC [place] T[place] CENTE SPINAL 1-2 REGIONS COLLECTIO 87058 [facility] N VENOUS 6 [facility] BLOOD INC [facility] G0378 [facility] GRAFFON OBSERVATI 6 [facility] ON INC INC SERVICE PER HOUR BASIC 28162 [facility] METABOLIC 6 [facility] PANEL INC INC CALCIUM TOTAL BLOOD 71159 [facility] COUNT 6 [facility] COMPLETE INC INC AUTO&AUTO DIFRNTL WBC URNLS DIP 15627 [facility] PARTHA 6 [facility] STICK/TAB INC INC LET REAGENT AUTO MICROSCOP Y ANESTHESI 56792 [facility]UN[facility] FEEBACK A VAGINAL 6 ANESTH REE OF THE HYSTERECT BLUE RODRIGUEZ INCL BIOPSY LAPS 11301 [facility] W/VAG 6 [facility] HYSTERECT INC INC 250 GM/&RMVL TUBE&/OVA POLI BLOOD 82270 [facility] COUNT 6 [facility]OS[facility] HEMOGLOBI INC INC N BLOOD 11976 [facility] COUNT 6 [facility]OS[facility] [place] [address] [facility], SELWYN SURG 6 [facility] PATHOLOGY GROSS&JAZMYN ROSCOPIC EXAM TX PROC G0238 [facility] IMPRV 6 [facility] RESP INC INC FUNCT NOT G0237 [facility] G0378 [facility] OBSERVATI 6 [facility]OS[facility] ON INC INC SERVICE PER HOUR COLLECTIO 94415 [facility] N VENOUS 6 [facility]OS[facility] BLOOD INC INC VENIPUNCT URE COLLECTIO 67264 [facility] N VENOUS 6 [facility]OS[facility] [place] [address] [facility] THYROID 6 [facility] STIMULATI INC INC NG HORMONE TSH GONADOTRO 79211 [facility] PIN 6 [facility]OS[facility] CHORIONIC INC INC QUALITATI VE BLOOD 73973 [facility] COUNT 6 [facility] COMPLETE INC INC AUTO&[place] [address] [facility] FOLIC 6 [facility] ACID INC INC SERUM CREATINE 76876 [facility] KINASE 6 [facility] TOTAL INC INC CYANOCOBA 05980 [facility] ANICETO 6 [facility] VITAMIN INC [place] B-12 [place] [address] [facility] FERRITIN 6 [facility]OS[facility] INC INC BASIC 26815 [facility] METABOLIC 6 [facility] PANEL INC INC CALCIUM TOTAL HEMOGLOBI 10255 [facility] N 6 [facility]OS[facility] GLYCOSYLA INC INC TRINA A1C CHIROPRAC 17770 [place] JAUREGUI TIC 6 AMA MANIPLTV CHIROPRAC TX TIC CENTE EXTRASPIN AL 1/> REGION CHIROPRAC 83154 [place] JAUREGUI TIC 6 AMA MANIPULAT CHIROPRAC [place] TIC CENTE SPINAL 1-2 REGIONS NEEDLE 06349 [facility] SHOJAEI-M EMG EA 6 PHYSICIAN OGHADDAM EXTREMTY S GROUP W/PARASPI NL AREA COMPLETE NERVE 31221 [facility] SHOJAEI-M CONDUCTIO 6 PHYSICIAN OGHADDAM N STUDIES S GROUP 3-4 STUDIES CHIROPRAC 86192 [place] TIC 6 DANETTE MANIPLTV CHIROPRAC TX TIC CENTE EXTRASPIN AL 1/> REGION CHIROPRAC 02614 [place] TIC 6 DANETTE MANIPULAT CHIROPRAC [place] TX TIC CENTE SPINAL 1-[place] [address] [facility], [place] SURG 6 [facility] PATHOLOGY GROSS&JAZMYN ROSCOPIC EXAM ENDOMETRI 67276 [facility] [place] BX 6 PHYSICIAN ALANNA W/WO S GROUP ENDOCERVI X BX W/O DILAT SPX DIAGNOSTI G0204 [facility] YASMIN C 6 MEDICAL HOPE MAMMOGRAP IMAGING HY INCL ASS CAD WHEN PERF; BILAT CHIROPRAC 85576 [place] TIC 6 MANIPULAT CHIROPRAC [place] SPINAL 1-2 REGIONS COMPUTER- 26752 UTA[facility] YASMIN AIDED 6 MEDICAL HOPE DETECTION IMAGING DX ASS MAMMOGRAP HY CHIROPRAC 07867 [place] TIC 6 MANIPLTV CHIROPRAC TX TIC CENTE EXTRASPIN AL 1/> REGION CHIROPRAC 27495 [place] TIC 6 MANIPLTV CHIROPRAC TX TIC CENTE EXTRASPIN AL 1/> REGION CHIROPRAC 31153 [place] TIC 6 MANIPULAT [facility]OP[facility]AC [place] T[place] CENT[place] SPINAL 1-2 REGIONS MANUAL 77207 [place] THERAPY 6 TQS 1/> CHIROPRAC REGIONS TIC CENTE EACH 15 MINUTES CYTP C/V 31791 [facility], PICKLESIM AUTO THIN 6 LLC ER JR RACHEL LYR PREPJ SCR MNL RESCR PHYS GONADOTRO 36630 [facility] PIN 6 [facility] LUTEINIZI INC INC NG HORMONE GONADOTRO 64706 [facility] PIN 6 [facility] FOLLICLE INC INC STIMULATI NG HORMONE BASIC 53897 [facility] METABOLIC 6 [facility] [place] [address] [facility] THYROXINE 6 [facility] TOTAL INC INC BLOOD 14637 [facility] COUNT 6 [facility] COMPLETE INC INC AUTO&AUTO DIFRNTL WBC COLLECTIO 19154 [facility] N VENOUS 6 [facility] [place] [address] [facility] THYROID 6 [facility] STIMULATI INC INC NG HORMONE TSH THYROID 29674 [facility] HORM 6 [facility] UPTK/THYR INC INC OID HORMONE BINDING RATIO CHIROPRAC 94686 [place] TIC 6 DANETTE MANIPLTV CHIROPRAC TX TIC CENTE EXTRASPIN AL 1/> REGION MANUAL 87013 [place] THERAPY 6 DANETTE TQS 1/> CHIROPRAC REGIONS TIC CENTE EACH 15 MINUTES 65993 [facility] TRANSVAGI 6 [facility] NAL INC INC CHIROPRAC 51165 [place] TIC 6 DANETTE MANIPULAT CHIROPRAC [place] T[place] SPINAL 1-2 REGIONS CHIROPRAC 12377 [place] TIC 6 DANETTE MANIPULAT [facility]IROPRAC [place] SPINAL 1-2 REGIONS THERAPEUT 22073 [place] IC PX 1/> 6 DANETTE AREAS CHIROPRAC EACH 15 TIC CENTE MIN EXERCISES MANUAL 02254 [place] THERAPY 6 DANETTE TQS 1/> CHIROPRAC REGIONS TIC CENTE EACH 15 MINUTES CHIROPRAC 12907 [place] TIC 6 DANETTE MANIPLTV CHIROPRAC TX TIC CENTE EXTRASPIN AL 1/> REGION CHIROPRAC 57604 [place] JA[place]GUI TIC 6 AMA MANIPLTV CHIROPRAC TX TIC CENTE EXTRASPIN AL 1/> REGION MANUAL 33076 [place] JA[place] THERAPY 6 AMA TQS 1/> CHIROPRAC REGIONS TIC CENTE EACH 15 MINUTES APPL 27239 [place] MODALITY 6 1/> AREAS CHIROPRAC CHIROPRAC TIC CENTE TIC CENTE ULTRASOUN D EA 15 MIN APPL 32113 [place] MODALITY 6 AMA 1/> AREAS CHIROPRAC TRACTION TIC CENTE MECHANICA L THERAPEUT 81867 [place] PX 1/> 6 AMA AREAS CHIROPRAC EACH 15 TIC CENTE MIN EXERCISES CHIROPRAC 15513 [place] JA[place] TIC 6 AMA MANIPULAT CHIROPRAC [place] T[place] C[place] SPINAL 1-2 REGIONS CHIROPRAC 73754 [place] JAUREGUI TIC 6 AMA MANIPULAT CHIROPRAC [place] TIC CENTE SPINAL 1-2 REGIONS APPL 38924 [place] MODALITY 6 1/> AREAS CHIROPRAC CHIROPRAC TRACTION TIC CENTE TIC CENTE MECHANICA L APPL 72857 [place] JAUREGUI MODALITY 6 AMA 1/> AREAS CHIROPRAC ELEC TIC CENTE STIMJ UNATTENDE D THERAPEUT 07867 [place] JAUREGUI IC PX 1/> 6 AMA AREAS CHIROPRAC EACH 15 TIC CENTE MIN EXERCISES APPL 05131 [place] JAUREGUI MODALITY 6 AMA 1/> AREAS CHIROPRAC TIC CENTE ULTRASOUN D EA 15 MIN MANUAL 99451 [place] JAUREGUI THERAPY 6 AMA TQS 1/> CHIROPRAC REGIONS TIC CENTE EACH 15 MINUTES CHIROPRAC 00625 [place] JAUREGUI TIC 6 AMA MANIPLTV CHIROPRAC TX TIC CENTE EXTRASPIN AL 1/> REGION CHIROPRAC 98414 [place] TIC 6 DANETTE DANETTE MANIPLTV TX EXTRASPIN AL 1/> REGION MANUAL 39443 [place] THERAPY 6 DANETTE TQS 1/> CHIROPRAC REGIONS TIC CENTE EACH 15 MINUTES APPL 95692 [place] MODALITY 6 DANETTE DANETTE 1/> AREAS ULTRASOUN D EA 15 MIN APPL 36424 [place] MODALITY 6 DANETTE DANETTE 1/> AREAS TRACTION MECHANICA L THERAPEUT 74942 [place] IC PX 1/> 6 DANETTE DANETTE AREAS EACH 15 MIN EXERCISES APPL 99244 [place] MODALITY 6 DANETTE DANETTE 1/> AREAS ELEC STIMJ UNATTENDE D CHIROPRAC 96210 [place] TIC 6 DANETTE DANETTE MANIPULAT [place] SPINAL 1-2 REGIONS CHIROPRAC 91648 [place] TIC 6 DANETTE DANETTE MANIPULAT [place] SPINAL 1-2 REGIONS APPL 88985 [place] MODALITY 6 DANETTE DANETTE 1/> AREAS ELEC STIMJ UNATTENDE D APPL 89971 [place] MODALITY 6 DANETTE DANETTE 1/> AREAS TRACTION MECHANICA L APPL 44710 [place] MODALITY 6 DANETTE DANETTE 1/> AREAS ULTRASOUN D EA 15 MIN APPLICATI 12347 [place] ON 6 DANETTE DANETTE MODALITY 1/> AREAS HOT/COLD PACKS MANUAL 08306 [place] THERAPY 6 DANETTE DANETTE TQS 1/> REGIONS EACH 15 MINUTES CHIROPRAC 00615 [place] TIC 6 DANETTE DANETTE MANIPLTV TX EXTRASPIN AL 1/> REGION CHIROPRAC 15986 [place] TIC 6 DANETTE DANETTE MANIPLTV TX EXTRASPIN AL 1/> REGION MANUAL 99590 [place] THERAPY 6 DANETTE TQS 1/> CHIROPRAC REGIONS TIC CENTE EACH 15 MINUTES APPL 36878 [place] MODALITY 6 DANETTE 1/> AREAS CHIROPRAC TIC CENTE ULTRASOUN D EA 15 MIN APPLICATI 31856 [place] ON 6 MODALITY CHIROPRAC CHIROPRAC 1/> AREAS TIC CENTE TIC CENTE HOT/COLD PACKS APPL 49735 [place] MODALITY 6 DANETTE 1/> AREAS CHIROPRAC TRACTION TIC CENTE MECHANICA L APPL 91568 [place] MODALITY 6 DANETTE 1/> AREAS CHIROPRAC ELEC TIC CENTE STIMJ UNATTENDE D APPL 56052 [place] MODALITY 6 DANETTE DANETTE 1/> AREAS ELEC STIMJ UNATTENDE D APPLICATI 24226 [place] ON 6 DANETTE DANETTE MODALITY 1/> AREAS HOT/COLD PACKS APPL 83755 [place] MODALITY 6 DANETTE DANETTE 1/> AREAS ULTRASOUN D EA 15 MIN CHIROPRAC 54279 [place] TIC 6 DANETTE DANETTE MANIPULAT [place] SPINAL 3-4 REGIONS MANUAL 43419 [place] THERAPY 6 DANETTE DANETTE TQS 1/> REGIONS EACH [address] LUMBAR 48903 [facility] [place] SPINE 6 RADIOLOGY LD IV ALL W/O CONTRAST MATERIAL CTA ABDL 28553 [facility] [place] AORTA&BI 6 RADIOLOGY LD IV ALL ILIOFEM W/CONTRAS T&POSTP DRUG SCR G0434 COMBINED COMBINED NOT 6 PHYSICIAN PHYSICIAN CHROMATOG S LA S LA RAPHIC; ANY NUMBER PT ENC DRUG TST G0477 COMBINED COMBINED PRESUMP;C 6 PHYSICIAN PHYSICIAN PBL BEING S LA S LA READ DC OPT OBV ONLY ECG 53883 [facility] MOE JR ROUTINE 6 [facility] W/LEAST P 12 LDS I&R ONLY INJECTION J0696 NICOLASA BALDWIN 6 DILMA DILMA CEFTRIAXO NE SODIUM PER 250 MG HEPB 18942 [facility] VACCINE [facility] ADULT 3 HLTH DEPT HLTH DEPT DOSE KHANG KHANG SCHEDULE FOR IM USE DIAGNOSTI G0204 [facility] Humphries 6 [facility] MAMMOGRAP INC INC HY INCL CAD WHEN PERF; BILAT SMR PRIM 97647 [facility] SRC WET [facility] DEPT NFCT AGT KHANG KHANG IADNA 03344 [facility] CHLAMYDIA [facility] DEPT TRACHOMAT KHANG KHANG IS AMPLIFIED PROBE TQ WET Q0111 [facility] CHRISTIAN 5 [facility] DISTRICT INCL PREP [facility] DEPT [facility] DEPT VAGINAL KHANG KHANG CERV/SKIN SPECIMENS PH BODY 60073 [facility] FLUID NOT 5 [facility] DEPT ELSEWHERE KHANG KHANG SPECIFIED IADNA 28240 [facility] NEISSERIA 5 [facility] DISTRICT [facility] DEPT [facility] DEPT GONORRHOE KHANG KHANG AE AMPLIFIED PROBE TQ URNLS DIP 25044 [facility] 5 [facility] DISTRICT STICK/TAB [facility] DEPT [facility] DEPT LET RGNT [facility] NON-AUTO W/O MICRSCP AMINES 99762 [facility] VAGINAL 5 [facility] DEPT QUALITATI KHANG KHANG VE ALL Q0112 [facility] POTASSIUM [facility] DEPT HYDR[place] [address] [facility] ALL ABDOMEN & 5 MEDICAL PELVIS IMAGING W/O ASS CONTRAST MATERIAL DRUG SCR G0434 COMBINED COMBINED NOT 5 PHYSICIAN PHYSICIAN CHROMATOG S LA S LA RAPHIC; ANY NUMBER PT ENC INJECTION J0696 NICOLASA BALDWIN 5 DILMA DILMA CEFTRIAXO NE SODIUM PER 250 MG INJECTION J0696 NICOLASA BALDWIN 5 DILMA DILMA CEFTRIAXO NE SODIUM PER 250 MG DIAGNOSTI G0204 [facility] Humphries 4 [facility] MAMMOGRAP INC INC HY INCL CAD WHEN PERF; BILAT OPHTH 67614 [facility] 4 XM&EVAL COMPRHNSV ESTAB PT 1/> POLYSOM 71826 [facility] 6/>YRS 1 Y Y SLEEP 4/> [place] [address] [facility] CHAVIS INFUSION 1 [facility] THERAPY/P INC INC ROPHYLAXI S /DX 1ST TO 1 HR COMPREHEN 54005 [facility] CHAVIS SIVE 1 [facility] [place] [address] DIANA DAVIDSON ABDOMEN & 1 MEDICAL GEORGE PELVIS IMAGING W/[place] [address] [facility] CHAVIS INFUSION 1 [facility] THER INC INC PROPH ADDL SEQUENTIA L TO 1 HR 3D 96052 [facility] CHAVIS RENDERING 1 [facility] INC INC W/INTERP& POSTPROC DIFF WORK STATION BLOOD 97065 [facility] CHAVIS OCCULT 1 [facility] PEROXIDAS INC INC E ACTV QUAL FECES 1-3 SPEC URNLS DIP 05281 [facility] CHAVIS 1 [facility] STICK/TAB INC INC [place] [address] [facility] CHAVIS CLOSTRIDI 1 [facility] UM INC INC DIFFICILE TOXIN CUL BACT 04404 [facility] CHAVIS STOOL 1 [facility] AEROBIC INC INC ISOL SALMONELL A&SHIGELL BLOOD 21757 [facility] CHAVIS COUNT 1 [facility] COMPLETE INC INC AUTO&AUTO DIFRNTL WBC CARBON 34585 [place] DEMPSE[place] MONOXIDE 1 MEDICAL JAM DIFFW/CAP SERV FOUNDATIO BRNCDILAT 45474 [place] RSPSE 1 MEDICAL JAM SPMTRY SERV PRE&POST- FOUNDATIO BRNCDILAT ADMN FUNCTIONA 59690 [facility] CHAVIS L 1 [facility] RESIDUAL INC INC CAPACITY OR RESIDUAL VOLUME DETER 96124 [place] MALDISTRI 1 MEDICAL JAM BJ OF SERV INSPIRED FOUNDATIO GAS N WSHOT CURVE DETER 76188 PAR[facility] CHAVIS AIRWY 1 [facility] CLOSING INC INC VOL [address] [place] [address] PARTHA CHAVIS THYROID 1 [facility] STIMULATI INC INC NG HORMONE TSH OPHTH 19775 LEANA SCIFRES MEDICAL 0 VISION ANG XM&EVAL COMPRHNSV ESTAB PT 1/> ARTHROCEN 34888 [facility] LINDY MONTILLAIS 0 PHYSICIAN JAM ASPIR&/IN S GROUP J SMALL JT/BURSA W/O US INJECTION J0696 NICOLASA BALDWIN 0 DILMA DILMA CEFTRIAXO NE SODIUM PER 250 MG LEVEL III 80583 PATHOLOGY PATHOLOGY SURG 8 & & PATHOLOGY CYTOLOGY CYTOLOGY LAB LAB GROSS&JAZMYN ROSCOPIC EXAM EXC B9 29612 JOSIAH JOHNSTONSTAD LESION 8 , REFUGIO , REFUGIO MRGN XCP SK TG T/A/L 1.1-2.0 CM BLOOD 55087 [facility] CHAVIS COUNT 8 [facility] COMPLETE INC INC AUTO&AUTO DIFRNTL WBC ECG 38760 [facility] CHAVIS ROUTINE 8 [facility] ECG INC INC W/LEAST 12 LDS TRCG ONLY W/O I&R FIBRIN 72946 PAR[facility]A CHAVIS DGRADJ 8 [facility] PRODUCTS INC INC D-DIMER QUAL/SEMI FILIBERTO BASIC 71052 [facility] CHAVIS METABOLIC 8 [facility] PANEL INC INC CALCIUM TOTAL CREATINE 79624 PAR[facility] CHAVIS KINASE 8 [facility] TOTAL INC INC CREATINE 49831 [facility] CHAVIS KINASE MB 8 [facility] FRACTION INC INC ONLY RADIOLOGI 58301 Kristel POST EXAM 8 MEDICAL [place] CHEST 2 IMAGING VIEWS ASSOCIATE FRONTAL&[place] [address] PARTHA CHAVIS TROPONIN 8 [facility] QUANTITAT INC INC [place] PRESSURIZ 52080 PARTHA CHAVIS ED/NONPRE 8 [facility] SSURIZED INC INC INHALATIO N TREATMENT RADEX 45259 [facility] CALCANEUS 8 MEDICAL [place] MINIMUM IMAGING 2 VIEWS ASSOCIATE S APPLICATI 69977 ELANA KRUGER ON SHORT 8 NATIONAL ISMAEL LEG CORPORATI O SPLINT ON CALF FOOT COMPREHEN 84310 PAR[facility] CHAVIS SIVE 8 [facility] METABOLIC INC INC PANEL SEDIMENTA 64881 PAR[facility]A CHAVIS TION RATE 8 [facility] RBC INC INC NON-AUTOM ATED BLOOD 83284 [facility] CHAVIS COUNT 8 [facility] COMPLETE INC INC AUTO&AUTO DIFRNTL WBC RHEUMATOI 65464 PAR[facility] CHAVIS D FACTOR 8 [facility] QUANTITAT INC INC [place] LIPID 52654 [facility] CHAVIS PANEL 8 [facility] INC INC ANTINUCLE 40914 [facility] CHAVIS AR 8 [facility] ANTIBODIE INC INC S AG INCISION 07263 SCHULSTEDDI SCHULAD & 8 , REFUGIO , REFUGIO DRAINAGE ABSCESS SIMPLE/SI NGLE RADEX ABD 68773 ITA ALEJANDRA 8 MEDICAL JACKIE P AQT ABD IMAGING W/S/E/D ASSOCIATE VIEWS 1 S VIEW CH ADMN SET A7003 YOUR YOUR SM VOL 8 PHARMACY PHARMACY NONFILEXCELA HEALTH PNEUMAT NEBULIZR DISPBL NEBULIZER E0570 LB ASHER WITH 8 HOME MED HOME MED COMPRESSO EQUIP. EQUIP. R [facility] OPH 66624 GT DEL REAL, MEDICAL 8 JENNI A JENNI A XM&EVAL COMPRE NEW PT 1/> VST LIPID 46531 COMBINED COMBINED PANEL 8 PHYSICIAN PHYSICIAN S LAB S LAB GLUC BLD 04932 DHS/CO [facility]A GLUC MNTR 8 HEALTH ME HEALTH DEV [facility] CLEARED BANK ACCT FDA SPEC HOME USE RADEX 25076 [facility] [place] GRIFF[place], G ANKLE 8 RADIOLOGY T COMPLETE MINIMUM 3 VIEWS BLOOD 54024 DHS/CO PARTHA COUNT 8 [facility] N BANK ACCT GLUC BLD 78676 DHS/CO [facility]A GLUC MNTR [facility]ALTH [facility] CLEARED BANK ACCT FDA SPEC HOME USE CYTP 44138 DHS/CO PARTHA CERV/VAG HEALTH [facility] AUTO [facility] LAYER BANK ACCT PREP MNL SCREEN DUP-SCAN 92241 [facility] XTR VEINS 8 N N [facility] L/LIMITED STUDY Encounters Encounter Start End Date Code Location Performer Type Date OFFICE 59047 NICOLASA BALDWIN OUTPATIDONNA 7 7 T VISIT 15 MINUTES HOSPITAL [facility] - 7 7 [facility] OUTPATIEN [facility] H[facility]PITAL PARTHA - 6 6 [facility] OUTPATIEN [facility] EMERGENCY 55145 VERONICA LIU 6 6 PHYSICIAN MAHAMED S PLLC T VISIT HIGH/URGE NT SEVERITY EMERGENCY 61314 [facility] 6 6 [facility] T VISIT MODERATE SEVERITY OFFICE 27118 NICOLASA TOBIAS 6 6 T VISIT 15 MINUTES HOSPITAL [facility] - 6 6 [facility] - 6 6 [facility] - 6 6 [facility] OUTPATIEN [facility] OFFICE 84057 [facility] SHOJAEI-M OUTPATIEN 6 6 PHYSICIAN OGERIKA T NEW 45 S GROUP JAL MINUTES PERIODIC 32470 [facility] PREVENTIV 6 6 PHYSICIAN E MED EST S GROUP PATIENT 40-64YRS [facility] PARTHA - 6 6 [facility] OUTPATIEN [facility] - 6 6 [facility] OUTPATIEN [facility] OFFICE 81541 [facility] OUTPATIEN 6 6 PHYSICIAN T NEW 30 S GROUP MINUTES OFFICE 25655 [facility] OUTPATIEN 6 6 DANETTE DANETTE T NEW 30 MINUTES EMERGENCY 98664 [facility] DE[facility] 6 6 SONIDO VISIT EMERGENCY HIGH PHYSI SEVERITY& THREAT FUNCJ OFFICE 27190 NICOLASA CASTROPATIDONNA 6 6 DILMA DILMA T VISIT 15 MINUTES EMERGENCY 80562 VERONICA LIU 6 6 PHYSICIAN JAZMYN IRBY S PLLC T VISIT MODERATE SEVERITY EMERGENCY 65446 [facility] PHYSICIAN TANNER VISIT S, PLLC HIGH SEVERITY& THREAT FUNCJ OFFICE 97116 NICOLASA BALDWIN OUTPATIEN 6 6 DILMA DILMA T VISIT 15 MINUTES EMERGENCY 59163 VERONICA LIU 6 6 PHYSICIAN JAZMYN DEPARTMEN S, PLLC T VISIT MODERATE SEVERITY OFFICE 92494 NICOLASA BALDWIN OUTPATIEN 6 6 DILMA DILMA T VISIT 15 MINUTES OFFICE 06563 [facility] 6 6 [facility] T VISIT 5 TH DEPT [facility] DEPT MINUTES [facility]A - 6 6 [facility] OUTPATIEN INC T OFFICE 26087 [facility] OUT[facility] 5 5 [facility] T VISIT [facility] DEPT [facility]PT [address] [facility] MINUTES PERIODIC 63389 [facility] PREVENTIV 5 5 [facility] E MED EST HLTH DEPT [facility] DEPT PATIENT [facility] 40-64YRS OFFICE 86797 PARTHA OLIVAS JR OUTPATIEN [address] MINUTES P OFFICE 89219 NICOLASA BALDWIN OUTPATIEN 5 5 DILMA DILMA T VISIT 15 MINUTES OFFICE 67118 NICOLASA BALDWIN OUTPATIEN 5 5 DILMA DILMA T VISIT 15 MINUTES OFFICE 26003 [facility] FLORY TOD OUTPATIEN 5 5 PHYSICIAN T VISIT S GROUP 10 MINUTES OFFICE 63290 [facility] FL[facility] TOD CONSULTAT 5 5 PHYSICIAN ION S GROUP [facility] PATIENT 40 MIN OFFICE 99637 NICOLASA BALDWIN OUTPATIEN 5 5 DILMA DILMA T VISIT 15 MINUTES HOSPITAL [facility] - 4 4 [facility] INC T OFFICE 58913 [facility] OUT[facility] 4 4 [facility] T VISIT [facility] DEPT [facility] DEPT 10 KHANG KHANG MINUTES HOSPITAL UNIVERSIT - 1 1 [facility] OFFICE 15653 [facility] 1 1 MEDICAL JAM T VISIT SERV 15 FOUNDATIO MINUTES OFFICE 36965 NICOLASA BALDWIN OUTPATIEN 1 1 DILMA DILMA T VISIT 15 MINUTES EMERGENCY 06222 SELWYN LIU DEPT 1 1 EMERGENCY JAZMYN VISIT SERVICES HIGH SEVERITY& THREAT FUNCJ EMERGENCY 93592 PARTHA 1 1 [facility] T VISIT HIGH/URGE NT [facility] PARTHA - 1 1 [facility] - 1 1 [facility] PARTHA - 1 1 [facility] OFFICE 91929 NICOLASA BALDWIN OUTPATIEN 0 0 DILMA DILMA T VISIT 15 MINUTES OFFICE 45836 MARY JO MAHARAJ ALLRAN JR CONSULTAT 0 0 GIANCARLO GIANCARLO ION NEW/ESTAB PATIENT 40 MIN OFFICE 35255 NICOLASA BALDWIN OUTPATIEN 0 0 DILMA DILMA T VISIT 15 MINUTES OFFICE 32900 [facility] LINDY OUTPATIEN 0 0 PHYSICIAN JAM T VISIT S GROUP 25 MINUTES OFFICE 18908 NICOLASA BALDWIN OUTPATIEN 0 0 DILMA DILMA T VISIT 15 MINUTES OFFICE 98731 NICOLASA BALDWIN OUTPATIEN 0 0 DILMA DILMA T VISIT 15 MINUTES OFFICE 71624 NICOLASA BALDWIN OUTPATIEN 0 0 DILMA DILMA T VISIT 15 MINUTES OFFICE 46153 NICOLASA BALDWIN OUTPATIEN 0 0 DILMA IDLMA T VISIT 15 MINUTES OFFICE 19954 JOSIAH RAHMAN CONSULTAT 8 8 , REFUGIO , REFUGIO ION NEW/ESTAB PATIENT 30 MIN EMERGENCY 47173 [facility] 8 8 [facility] T VISIT LIMITED/M INOR PROB EMERGENCY 21064 ELANA KRUGER, 8 8 [facility] CORPORATI O T VISIT ON MODERATE SEVERITY HOSPITAL [facility]A - 8 8 [facility] OUTPATIEN INC T EMERGENCY 34087 PARTHA 8 8 [facility] T VISIT HIGH/URGE NT SEVERITY [facility]OSP[facility] - 8 8 [facility] OUTPATIEN INC T HOSPITAL [facility] - 8 8 [facility] OUTPATIEN [facility] T OFFICE 18650 [facility] 8 8 [facility] Pelon BLAKE T VISIT ASSOCIATE 15 S MINUTES HOSPITAL PARTHA - 8 8 [facility] OUTPATIEN INC T EMERGENCY 40976 [facility] 8 8 [facility] V[facility] LIMITED/M INOR PROB EMERGENCY 80885 ELANA KRUGER, 8 8 [facility] CORPORATI O T VISIT ON MODERATE SEVERITY HOSPITAL PARTHA - 8 8 [facility] OUTPATIEN [facility] T OFFICE 17808 DHEERAJ ESQUEDA OUTPATIEN 8 8 DON R DON R T VISIT 15 MINUTES OFFICE 52387 JOSIAH RAHMAN CONSULTAT 8 8 , REFUGIO HUFF NEW/ESTAB PATIENT 15 MIN OFFICE 66685 DHEERAJ ESQUEDA OUTPATIEN 8 8 DON R DON R T NEW 20 MINUTES EMERGENCY 07276 [facility], 8 8 [facility]O [facility] [place] [facility] T VISIT [facility] MODERATE SEVERITY EMERGENCY 53665 PARTHA 8 8 [facility] T VISIT LOW/MODER SEVERITY [facility]OSPITAL [facility] - 8 8 [facility] OUTPATIEN INC T OFFICE 06753 DHS/CO [facility] OUTPATIDONNA 8 8 [facility] ON [facility] OF [facility] T VISIT [facility] 15 BANK ACCT MINUTES EMERGENCY 06372 [facility] 8 8 [facility] EMERGENCY T [facility]IT [facility] MODERATE SEVERITY PERIODIC 42451 DHS/CO PARTHA PREVENTIV 8 8 [facility] HEALTH E MED EST [facility] PATIENT BANK ACCT 18-39 YRS [facility] [place] [address] 8 N [facility]
--- OUTSIDE RECORDS SUMMARY | 2017-03-28 13:55 | External Medical Summary Rpt ---
Author Author , [facility] Organization [facility] Address Unknown Phone [email or web address] Care Team Providers Care Process Development Engineer Name Role Phone ALLRAN JR GIANCARLO, ALLRAN [...] Unavailable Unavailable [facility] [place] [facility] [facility] [place] [facility] Un[place] ELIAS, Ethan T, GRIFFIN, G Unavailable Unavailable T FEEBACK REE, FEEBACK Unavailable Unavailable REE ALEXA, ALEXA Unavailable Unavailable ALEXA JAZMYN, ALEXA Unavailable Unavailable JAZMYN [facility] Unavailable Unavailable [facility] AMY YU G, Unavailable Unavailable AGUILAR YUA G [facility] Unavailable Unavailable [facility]ENTER, [facility] Unavailable Unavailable INC, [facility] DEL REAL AMINA, DEL REAL AMINA Unavailable Unavailable DEL REAL AMINA, DEL REAL AMINA Unavailable Unavailable DEL REALAMINATT A, Unavailable Unavailable DEL REAL, JENNI A [facility], Unavailable Unavailable [facility] JAUREGUI, JAUREGUI Unavailable Unavailable JAUREGUI AMA, JAUREGUI Unavailable Unavailable AMA [facility] Unavailable [...] PHARM #[id number] [facility] Unavailable Unavailable [id number] # [id number], [facility] [id number] # [id number] SCHULSTAD, REFUGIO, Unavailable Unavailable SCHULSTAD, REFUGIO SCIFRES ANG, SCIFRES Unavailable Unavailable ANG SHOJAEI-YUNG, Unavailable Unavailable SHOJAEI-YUNG SHOJAEI-YUNG Unavailable Unavailable JAL, SHOJAEI-YUNG JAL SMALL, OLVIN T, SMALL, Unavailable Unavailable OLVIN T SOKAN, ISAMEL O, Unavailable Unavailable SOKAN, ISMAEL O [facility] Unavailable [facility] Unavailable [facility]available EMERGENCY [facility], [facility] SUZI ESQUEDA, Unavailable Unavailable SUZI ESQUEDA [facility] [place], Unavailable Unavailable [facility] Unavailable Unavailable DEPT [facility] DEPT [facility] Unavailable Unavailable DEPT [facility] DEPT [facility] VILMA IV ALL, Unavailable Unavailable VILMA IV ALL RAGLAND, RAGLAND Unavailable Unavailable [facility] Un[facility], Unavailable Unavailable [facility] Purpose Continuity of Care Document - 09-04-2007 [...] OTH SPEC 08-28-2016 [facility] NONINFECTIV PHYSICIANS, [facility] GA[facility] ITIS & COLITIS K529 NONINFECTIV 08-28-2016 [facility] INC ITIS & COLITIS UNS K5900 CONSTIPATIO 08-28-2016 [place] N [facility]ICAL UNSPECIFIED IMAGING ASS R109 UNSPECIFIED 08-28-2016 [facility] ABDOMINAL [facility]ICAL PAIN IMAGING ASS R140 ABDOMINAL 08-28-2016 [facility] DIST[facility]ION [facility] GASEOUS IMAGING ASS R197 DIARRHEA 08-28-2016 [place] UNSPECIFIED [facility]ICAL IMAGING ASS Z720 TOBACCO USE 08-28-2016 [facility] D259 LEIOMYOMA 06-25-2016 [facility] UNSPECIFIED 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 N852 HYPERTROPHY 06-25-2016 [facility] N920 EXCESS & 06-25-2016 [facility] FREQUENT PHYSICIANS MENSTRUATIO GROUP N W/REGULAR CYCLE N944 PRIMARY 06-25-2016 [facility] DYSMENORRHE [facility]YSICIANS A GROUP N946 DYSMENORRHE 06-25-2016 [facility] A [facility] UNSPECIFIED INC R40141 ENCOUNTER 06-21-2016 [facility] FOR [facility] PREPROCEDUR INC AL CARIOVASCUL AR EXAM V49800 ENCOUNTER 06-21-2016 [facility] FOR [facility] PREPROCEDUR INC AL LABORATORY EXAM G2581 RESTLESS 06-18-2016 [facility] LEGS [facility] SYNDROME INC M545 LOW BACK 06-18-2016 [facility] PAIN [facility] INC A70491 PAIN IN 06-18-2016 [facility] RIGHT LEG PHYSICIANS GROUP I37156 PAIN IN 06-18-2016 [facility] LEFT LEG PHYSICIANS GROUP K23392 PAIN IN LEG 06-18-2016 [facility] UNSPECIFIED INC R202 PARESTHESIA 06-18-2016 [facility] OF SKIN [facility] INC N63 UNSPECIFIED 05-29-2016 [facility] [place] IN MEDICAL BREAST IMAGING ASS M52027 ENCOUNTER 05-23-2016 [facility] DOOR PERSON EXAM LLC GENERAL RTN W/O ABNORMAL FIND N951 MENOPAUSAL 05-21-2016 [facility] FEMALE [facility] CLIMACTERIC INC STATES N8320 UNSPECIFIED 05-17-2016 [facility] OVARIAN MEDICAL CYSTS IMAGING ASS N938 OTHER SPEC 05-17-2016 [facility] ABNORMAL MEDICAL UTERINE & IMAGING ASS VAGINAL BLEEDING I7389 OTHER 04-21-2016 [facility] [place] SPECIFIED RADIOLOGY PERIPHERAL VASCULAR 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 N390 URINARY 04-20-2016 [facility]ERG[facility]Y INFECTION PHYSI SITE NOT SPECIFIED [id number] STRAIN 04-20-2016 [facility] MUSCLE N EMERGENCY FASCIA & PHYSI TENDON LOW BACK INITIAL Y998 OTHER 04-20-2016 [facility] EXTERNAL N EMERGENCY CAUSE PHYSI STATUS G589 MONONEUROPA 04-13-2016 [facility] DILMA THY UNSPECIFIED Z5181 ENCOUNTER 01-09-2016 [facility] THERAPEUTIC LA DRUG LEVEL MONITORING G29142 OTHER LONG 01-09-2016 [facility]BIN[facility] TERM PHYSICIANS CURRENT LA DRUG THERAPY U03603 CELLULITIS 01-02-2016 [facility] OF RIGHT PHYSICIANS, UPPER LIMB PLLC Y327XFU HEAT 12-27-2015 [facility] EXHAUSTION PHYSICIANS, UNSPECIFIED PLLC INITIAL ENCOUNTER N95431 CELLULITIS 11-14-2015 [facility] OF BUTTOCK PHYSICIANS, PLLC Z23 ENCOUNTER 11-07-2015 [facility] FOR DISTRICT IMMUNIZATIO [facility] DEPT N KHANG Z111 ENCOUNTER 10-07-2015 [facility] SCREENING DISTRICT FOR [facility] DEPT RESPIRATORY KHANG TUBERCULOSI S N6001 SOLITARY 09-19-2015 [facility] CYST OF MEDICAL RIGHT IMAGING ASS BREAST N6002 SOLITARY 09-19-2015 [facility] CYST OF MEDICAL LEFT BREAST IMAGING ASS Z1239 ENCOUNTER 09-19-2015 [facility] OTHER [facility] SCREENING INC MALIG NEOPLASM BREAST N760 ACUTE 08-09-2015 [facility] VAGINITIS DISTRICT [facility] DEPT KHANG O25821 ENCOUNTER 08-09-2015 [facility] DOOR PERSON EXAM DISTRICT GENERAL RTN [facility] DEPT W/ABNORMAL KHANG FIND N23 UNSPECIFIED 06-04-2015 ARNLYNDA DILMA RENAL COLIC E279 DISORDER OF 06-02-2015 [facility] ADRENAL MEDICAL GLAND IMAGING ASS UNSPECIFIED K6389 OTHER 06-02-2015 [place] SPECIFIED MEDICAL DISEASES OF IMAGING ASS INTESTINE V5869 LONG-TERM 12-17-2014 [facility] (CURRENT) PHYSICIANS USE OF LA OTHER MEDICATIONS 4619 ACUTE 12-02-2014 [facility] DILMA SINUSITIS, UNSPECIFIED 6828 CELLULITIS 10-04-2014 [facility] AND ABSCESS PHYSICIANS OF OTHER GROUP SPECIFIED SITE 71166 LUMP OR 07-20-2014 [facility] MASS IN [facility] HOS[facility] BREAST INC 97709 OTHER 07-20-2014 [place] SPECIFIED MEDICAL DISORDERS IMAGING ASS OF BREAST 55483 UNSPECIFIED 07-06-2014 [facility] ABNORMAL [facility] MAMMOGRAM [facility] DEPT KHANG 3674 PRESBYOPIA 06-14-2014 DEL REAL AMINA 24830 INSOMNIA 10-02-2010 [facility] 07571 OBESITY, 09-29-2010 [place] [facility] UNSPECIFIED SERV FOUNDATIO 4778 ALLERGIC 09-29-2010 [place] [facility] RHINITIS SERV DUE TO FOUNDATIO OTHER ALLERGEN 4918 OTHER 09-29-2010 [place] [facility] CHRONIC SERV BRONCHITIS FOUNDATIO 20434 ESOPHAGEAL 09-29-2010 [place] [facility] REFLUX SERV FOUND[place] 5589 OTH&UNSPEC 09-15-2010 NICOLASA DILMA NONINFECTIO US GASTROENTER ITIS&COLITI S 5693 HEMORRHAGE 09-15-2010 ARNOLD DILMA OF RECTUM AND ANUS 43930 ABDOMINAL 09-09-2010 [place] PAIN, MEDICAL UNSPECIFIED IMAGING ASS SITE 7831 ABNORMAL 09-08-2010 [facility] WEIGHT GAIN [facility] 96131 SHORTNESS 09-08-2010 [facility] OF BREATH [facility] INC 06979 OTHER 09-08-2010 [place] [facility] DYSPNEA AND SERV FOUNDATIO RESPIRATORY ABNORMALITI ES 7862 COUGH 09-08-2010 [place] [facility] SERV FOUND[facility] 86752 OBSTRUCTIVE 08-18-2010 ARNLYNDA DILMA CHRONIC BRONCHITIS WITH EXACERBATIO N 7099 UNSPECIFIED 08-10-2010 MARY JO MAHARAJ DISORDER GIANCARLO OF SKIN&SUBCUT ANEOUS TISSUE 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 33290 GANGLION OF 06-20-2010 [facility] SHEATH GROUP 63063 UNSPECIFIED 06-20-2010 AR[facility] DILMA GANGLION 4660 ACUTE 05-11-2010 [facility] DILMA BRONCHITIS 6826 CELLULITIS 05-25-2008 SCHULSTAD, AND ABSCESS REFUGIO OF LEG EXCEPT FOOT 7062 SEBACEOUS 05-25-2008 SCHULSTAD, CYST REFUGIO 01552 UNSPECIFIED 05-20-2008 [facility] PYODERMA [facility] INC 5110 PLEURISY 04-11-2008 [facility] WITHOUT [facility] MENTION INC EFFUS/[place] [address] CHEST PAIN 04-11-2008 [facility] 84941 ACHILLES 03-10-2008 [facility] TENDINITIS 73795 OTHER ANKLE 03-09-2008 Cardia[facility] SPRAIN AND [employer] 63532 PAIN IN 02-08-2008 [facility] JOINT, [facility] MULTIPLE INC SITES 18344 OVERWEIGHT 02-07-2008 ESQUEDASUZI NEGRETE 29216 UNSPEC 02-07-2008 DHEERAJ POLYARTHROP SUZI Bird ATHY/POLYAR THRIT OTH SPEC SITE 37435 ASTHMA, 11-27-2007 [facility] UNSPECIFIED HOME MED , [facility]. [facility] UNSPECIFIED STATUS 5990 URINARY 10-31-2007 [facility]Y INFECTION PHYS INC SITE NOT SPECIFIED 48717 OTHER 10-31-2007 [facility] MALAISE AND N EMERGENCY FATIGUE PHYS INC 17299 VOMITING 10-31-2007 [facility] ALONE N EMERGENCY PHYS INC 7856 ENLARGEMENT 10-23-2007 [facility] PROF SERV 3670 HYPERMETROP 10-14-2007 YAJAIRA DEL REAL 8532 UNSPECIFIED 09-24-2007 [facility] DISORDER HEALTH OF LIPOID CENTRAL METABOLISM BANK ACCT V771 SCREENING 09-24-2007 [facility] FOR HEALTH DIABETES CENTRAL MELLITUS BANK ACCT 4659 ACUTE URIS 09-18-2007 [facility] OF N EMERGENCY UNSPECIFIED PHYS INC SITE 22653 PAIN IN 09-18-2007 [facility] [place] JOINT, RADIOLOGY ANKLE AND FOOT 54137 CONTUSION 09-18-2007 [facility] OF FOOT N EMERGENCY PHYS INC E8881 FALL 09-18-2007 [facility] RESULTING N EMERGENCY IN STRIKING PHYS INC AGAINST OTHER OBJECT 2662 OTHER 09-16-2007 [facility] B-COMPLEX HEALTH DEFICIENCIE CENTRAL S BANK ACCT V700 ROUTINE 09-16-2007 [facility] GENERAL HEALTH MEDICAL CENTRAL EXAM@HEALTH BANK ACCT CARE FACL 4538 ACUTE 09-04-2007 [facility] OTH SPECIFIED [...] 05 06 60 30 00 HO Ac ME 76 -3 -3 .0 00 ME ti [...] 05 06 60 30 00 HO Ac ME 76 -0 -0 .0 00 ME ti AZ 23 3- 2- 00 04 TO ve OL 72 20 20 02 WN AM 20 17 17 25 2 3 86 PH AR MG MA CY TA BL OF ET CY NT HI AN A AL 59 04 05 28 14 00 HO Ac ME 76 -2 -2 .0 00 ME ti [...] ve LO 19 20 20 08 WN ME 60 17 17 59 AM 3 02 [...] 01 14 7 RI 86 GA Ac ME 86 -0 -0 .0 TE 56 IN ti OF 20 8- 8- 00 43 EY ve LO 07 20 20 AI XA 70 11 11 D MO CI 1 PH CH N AR AE HC MA L L CY S 50 0 03 MG 93 8 TA # B 03 93 ME 50 01 01 21 7 RI 86 GA Ac TR 11 -0 -0 .0 TE 56 IN ti ON 10 8- 8- 00 44 EY ve ID 33 20 20 AI AZ 40 11 11 D MO OL 1 PH CH E AR AE 50 MA L 0 CY S MG 03 TA 93 BL 8 ET # 03 93 53 01 01 8. 2 RI 86 GA Ac 74 -0 -0 00 TE 56 IN ti 60 8- 8- 0 45 EY ve 11 20 20 AI 11 11 11 D MO 0 PH CH AR AE MA L [...] 80 6- 6- 00 71 LD ve ME 01 20 20 AI AM 10 10 [...] TA 8 BL # ET 03 93 ME 00 09 09 1 18 8 RI [...] 1 20 10 EA 18 AR Ac ME 11 -0 -[address] 94 NO [...] 00 14 7 RI 74 GA Ac ME 17 -1 -2 .0 TE 49 IN ti OF 25 0- 8- 00 59 EY ve LO 31 20 20 AI XA 26 08 08 D MO CI 0 PH CH N AR AE [...] #3 93 CA 8 PS UL E ME 60 03 04 00 4. 6 RI [...] 34 6- 0- 00 34 Av ve ME 59 20 20 AI ai ED 31 [...] 00 20 10 RI 72 No Ac ME 17 -2 -1 .0 TE 61 t [...] 00 10 5 RI 72 No Ac ME 17 -0 -0 .0 TE 30 t [...] M TA #3 BL 93 ET 8 ME 00 03 04 00 8. 2 RI [...] bl AR e M #3 93 8 ME 00 01 03 00 12 8 RI [...] Procedure DOS Code Location Performer Comment APPL 92651 [place] MODALITY 7 1/> AREAS CHIROPRAC TRACTION TIC CENTE MECHANICA L CHIROPRAC 06659 [place] TIC 7 MANIPLTV CHIROPRAC TX TIC CENTE EXTRASPIN AL 1/> REGION MANUAL 30602 [place] THERAPY 7 TQS 1/> CHIROPRAC REGIONS TIC CENTE EACH 15 MINUTES CHIROPRAC 38395 [place] PALMA TIC 7 MANIPULAT CHIROPRAC CHIROPRAC [place] T[place] CENT[place] TIC CENTE SPINAL 3-4 REGIONS CHIROPRAC 07556 [place] VELAS TIC 7 MANIPULAT CHIROPRAC [place] TIC CENTE SPINAL 3-4 REGIONS MANUAL 98155 [place] THERAPY 7 TQS 1/> CHIROPRAC REGIONS TIC CENTE EACH 15 MINUTES CHIROPRAC 09168 [place] TIC 7 MANIPLTV CHIROPRAC TX TIC CENTE EXTRASPIN AL 1/> REGION APPL 76996 [place] MODALITY 7 1/> AREAS CHIROPRAC CHIROPRAC TRACTION TIC CENTE TIC CENTE MECHANICA L APPL 75024 [place] MODALITY 7 1/> AREAS CHIROPRAC CHIROPRAC TRACTION TIC CENTE TIC CENTE MECHANICA L CHIROPRAC 53256 [place] TIC 7 MANIPLTV CHIROPRAC TX TIC CENTE EXTRASPIN AL 1/> REGION MANUAL 64144 [place] THERAPY 7 TQS 1/> CHIROPRAC REGIONS TIC CENTE EACH 15 MINUTES CHIROPRAC 26220 [place] VELAS TIC 7 MANIPULAT CHIROPRAC [place] T[place] CENTE SPINAL 3-4 REGIONS INJECTION J0696 NICOLASA BALDWIN 7 CEFTRIAXO NE SODIUM PER 250 MG CUL BACT 75042 [facility] XCPT 7 [facility]OS[facility] URINE INC INC BLOOD/STO OL AEROBIC ISOL CHIROPRAC 40931 [place] TIC 7 MANIPULAT CHIROPRAC CHIROPRAC [place] T[place] CENTE TIC CENTE SPINAL 3-4 REGIONS MANUAL 33247 [place] JAUREGUI THERAPY 7 TQS 1/> CHIROPRAC REGIONS TIC CENTE EACH 15 MINUTES CHIROPRAC 60447 [place] JAUREGUI TIC 7 MANIPLTV CHIROPRAC TX TIC CENTE EXTRASPIN AL 1/> REGION CHIROPRAC 78349 [place] JAUREGUI TIC 6 MANIPULAT CHIROPRAC [place] T[place] CENTE SPINAL 1-2 REGIONS MANUAL 36795 [place] JAUREGUI THERAPY 6 TQS 1/> CHIROPRAC REGIONS TIC CENTE EACH 15 MINUTES CHIROPRAC 56075 [place] JAUREGUI TIC 6 MANIPLTV CHIROPRAC TX TIC CENTE EXTRASPIN AL 1/> [place] [address] [facility] INFUSION 6 [facility] THERAPY/P INC INC ROPHYLAXI S /DX 1ST TO 1 HR THERAPEUT 94450 [facility] IC 6 [facility] INJECTION INC INC IV PUSH EACH NEW DRUG COMPREHEN 38921 [facility] SIVE 6 [facility] [address] [facility] AMYLASE 6 [place] [address] [facility] ABDOMEN & 6 [facility] PELVIS INC INC W/O CONTRAST MATERIAL URNLS DIP 26563 [facility] 6 [facility] STICK/TAB INC INC LET REAGENT AUTO MICROSCOP Y BLOOD 14131 [facility] COUNT 6 [facility] COMPLETE INC INC AUTO&[place] [address] [facility] LIPASE 6 [facility]OS[facility] INC INC CHIROPRAC 75604 [place] JAUREGUI TIC 6 AMA MANIPULAT CHIROPRAC [place] T[place] CENTE SPINAL 1-2 REGIONS CHIROPRAC 94456 [place] JAUREGUI TIC 6 AMA MANIPLTV CHIROPRAC TX TIC CENTE EXTRASPIN AL 1/> REGION MANUAL 46685 [place] JAUREGUI THERAPY 6 AMA TQS 1/> CHIROPRAC REGIONS TIC CENTE EACH 15 MINUTES MANUAL 15762 [place] JAUREGUI THERAPY 6 AMA TQS 1/> CHIROPRAC REGIONS TIC CENTE EACH 15 MINUTES CHIROPRAC 22709 [place] JAUREGUI TIC 6 AMA MANIPLTV CHIROPRAC TX TIC CENTE EXTRASPIN AL 1/> REGION CHIROPRAC 68928 [place] JAUREGUI TIC 6 AMA MANIPULAT CHIROPRAC [place] T[place] CENTE SPINAL 1-2 REGIONS COLLECTIO 44755 [facility] N VENOUS 6 [facility] BLOOD INC [facility] G0378 [facility] GRAFFON OBSERVATI 6 [facility] ON INC INC SERVICE PER HOUR BASIC 81784 [facility] METABOLIC 6 [facility] PANEL INC INC CALCIUM TOTAL BLOOD 85573 [facility] COUNT 6 [facility] COMPLETE INC INC AUTO&AUTO DIFRNTL WBC URNLS DIP 09871 [facility] PARTHA 6 [facility] STICK/TAB INC INC LET REAGENT AUTO MICROSCOP Y ANESTHESI 34412 [facility]UNITY FEEBACK A VAGINAL 6 ANESTH REE OF THE HYSTERECT BLUE RODRIGUEZ INCL BIOPSY LAPS 81312 [facility] W/VAG 6 [facility] HYSTERECT INC INC 250 GM/&RMVL TUBE&/OVA POLI BLOOD 18436 [facility] COUNT 6 [facility] HEMOGLOBI INC INC N BLOOD 04015 [facility] COUNT 6 [facility]OS[facility] [place] [address] [facility], SELWYN SURG 6 [facility] PATHOLOGY GROSS&JAZMYN ROSCOPIC EXAM TX PROC G0238 [facility] IMPRV 6 [facility] RESP INC INC FUNCT NOT G0237 [facility] G0378 [facility] OBSERVATI 6 [facility] ON INC INC SERVICE PER HOUR COLLECTIO 77122 [facility] N VENOUS 6 [facility] BLOOD INC INC VENIPUNCT URE COLLECTIO 71272 [facility] N VENOUS 6 [facility] [place] [address] [facility] THYROID 6 [facility] STIMULATI INC INC NG HORMONE TSH GONADOTRO 35595 [facility] PIN 6 [facility] CHORIONIC INC INC QUALITATI VE BLOOD 07714 [facility] COUNT 6 [facility] COMPLETE INC INC AUTO&[place] [address] [facility] FOLIC 6 [facility] ACID INC INC SERUM CREATINE 24651 [facility] KINASE 6 [facility] TOTAL INC INC CYANOCOBA 69252 [facility] ANICETO 6 [facility] VITAMIN INC [place] B-12 [place] [address] [facility] FERRITIN 6 [facility] INC INC BASIC 06301 [facility] METABOLIC 6 [facility] PANEL INC INC CALCIUM TOTAL HEMOGLOBI 77916 [facility] N 6 [facility]OS[facility] GLYCOSYLA INC INC TRINA A1C CHIROPRAC 83652 [place] JAUREGUI TIC 6 AMA MANIPLTV CHIROPRAC TX TIC CENTE EXTRASPIN AL 1/> REGION CHIROPRAC 38685 [place] JAUREGUI TIC 6 AMA MANIPULAT CHIROPRAC [place] TIC CENTE SPINAL 1-2 REGIONS NEEDLE 82520 [facility] SHOJAEI-M EMG EA 6 PHYSICIAN OGHADDAM EXTREMTY S GROUP W/PARASPI NL AREA COMPLETE NERVE 87357 [facility] SHOJAEI-M CONDUCTIO 6 PHYSICIAN OGHADDAM N STUDIES S GROUP 3-4 STUDIES CHIROPRAC 29647 [place] TIC 6 DANETTE MANIPLTV CHIROPRAC TX TIC CENTE EXTRASPIN AL 1/> REGION CHIROPRAC 98730 [place] TIC 6 DANETTE MANIPULAT CHIROPRAC [place] TX TIC CENT[place] SPINAL 1-[place] [address] [facility], [place] SURG 6 [facility] PATHOLOGY GROSS&JAZMYN ROSCOPIC EXAM ENDOMETRI 60918 [facility] AL BX 6 PHYSICIAN ALANNA W/WO S GROUP ENDOCERVI X BX W/O DILAT SPX DIAGNOSTI G0204 [place] YASMIN C 6 MEDICAL HOPE MAMMOGRAP IMAGING HY INCL ASS CAD WHEN PERF; BILAT CHIROPRAC 68946 [place] TIC 6 MANIPULAT CH[facility]OPRAC [place] TIC CENTE SPINAL 1-2 REGIONS COMPUTER- 94972 [place] YASMIN AIDED 6 MEDICAL HOPE DETECTION IMAGING DX ASS MAMMOGRAP HY CHIROPRAC 07649 [place] TIC 6 MANIPLTV CHIROPRAC TX TIC CENTE EXTRASPIN AL 1/> REGION CHIROPRAC 30493 [place] TIC 6 MANIPLTV CHIROPRAC TX TIC CENTE EXTRASPIN AL 1/> REGION CHIROPRAC 02083 [place] TIC 6 MANIPULAT CHIROPRAC [place] TIC CENTE SPINAL 1-2 REGIONS MANUAL 46011 [place] THERAPY 6 TQS 1/> CHIROPRAC REGIONS TIC CENTE EACH 15 MINUTES CYTP C/V 41067 [facility], PICKLESIM AUTO THIN 6 LLC ER JR RACHEL LYR PREPJ SCR MNL RESCR PHYS GONADOTRO 58941 [facility] PIN 6 [facility] LUTEINIZI INC INC NG HORMONE GONADOTRO 78715 [facility] PIN 6 [facility] FOLLICLE INC INC STIMULATI NG HORMONE BASIC 85328 [facility] METABOLIC 6 [facility] [place] [address] [facility] THYROXINE 6 [facility] TOTAL INC INC BLOOD 95471 [facility] COUNT 6 [facility] COMPLETE INC INC AUTO&AUTO DIFRNTL WBC COLLECTIO 83729 [facility] N VENOUS 6 [facility] [place] [address] [facility] THYROID 6 [facility] STIMULATI INC INC NG HORMONE TSH THYROID 61573 [facility] HORM 6 [facility] UPTK/THYR INC INC OID HORMONE BINDING RATIO CHIROPRAC 84895 [place] TIC 6 DANETTE MANIPLTV CHIROPRAC TX TIC CENTE EXTRASPIN AL 1/> REGION MANUAL 01295 [place] THERAPY 6 DANETTE TQS 1/> CHIROPRAC REGIONS TIC CENTE EACH 15 MINUTES 68540 [facility] TRANSVAGI 6 [facility] NAL INC INC CHIROPRAC 64221 [place] TIC 6 DANETTE MANIPULAT CHIROPRAC [place] T[place] CENTE SPINAL 1-2 REGIONS CHIROPRAC 65152 [place] TIC 6 DANETTE MANIPULAT CHIROPRAC [place] TIC CENTE SPINAL 1-2 REGIONS THERAPEUT 09301 [place] IC PX 1/> 6 DANETTE AREAS CHIROPRAC EACH 15 TIC CENTE MIN EXERCISES MANUAL 21109 [place] THERAPY 6 DANETTE TQS 1/> CHIROPRAC REGIONS TIC CENTE EACH 15 MINUTES CHIROPRAC 67691 [place] TIC 6 DANETTE MANIPLTV CHIROPRAC TX TIC CENTE EXTRASPIN AL 1/> REGION CHIROPRAC 82700 [place] JAUREGUI TIC 6 AMA MANIPLTV CHIROPRAC TX TIC CENTE EXTRASPIN AL 1/> REGION MANUAL 95092 [place] JAUREGUI THERAPY 6 AMA TQS 1/> CHIROPRAC REGIONS TIC CENTE EACH 15 MINUTES APPL 12118 [place] MODALITY 6 1/> AREAS CHIROPRAC CHIROPRAC TIC CENTE TIC CENTE ULTRASOUN D EA 15 MIN APPL 59722 [place] JAUREGUI MODALITY 6 AMA 1/> AREAS CHIROPRAC TRACTION TIC CENTE MECHANICA L THERAPEUT 15878 [place] JA[place] IC PX 1/> 6 AMA AREAS CHIROPRAC EACH 15 TIC CENTE MIN EXERCISES CHIROPRAC 85864 [place] JAUREGUI TIC 6 AMA MANIPULAT CHIROPRAC [place] TIC CENTE SPINAL 1-2 REGIONS CHIROPRAC 56242 [place] JAUREGUI TIC 6 AMA MANIPULAT CHIROPRAC [place] T[place] CENT[place] SPINAL 1-2 REGIONS APPL 98025 [place] MODALITY 6 1/> AREAS CHIROPRAC CHIROPRAC TRACTION TIC CENTE TIC CENTE MECHANICA L APPL 09981 [place] JAUREGUI MODALITY 6 AMA 1/> AREAS CHIROPRAC ELEC TIC CENTE STIMJ UNATTENDE D THERAPEUT 10836 [place] JA[place] IC PX 1/> 6 AMA AREAS CHIROPRAC EACH 15 TIC CENTE MIN EXERCISES APPL 45391 [place] JA[place] MODALITY 6 AMA 1/> AREAS CHIROPRAC TIC CENTE ULTRASOUN D EA 15 MIN MANUAL 58001 [place] JAURE[place] THERAPY 6 AMA TQS 1/> CHIROPRAC REGIONS TIC CENTE EACH 15 MINUTES CHIROPRAC 07793 [place] JAUREGUI TIC 6 AMA MANIPLTV CHIROPRAC TX TIC CENTE EXTRASPIN AL 1/> REGION CHIROPRAC 08029 [place] TIC 6 DANETTE DANETTE MANIPLTV TX EXTRASPIN AL 1/> REGION MANUAL 58207 [place] THERAPY 6 DANETTE TQS 1/> CHIROPRAC REGIONS TIC CENTE EACH 15 MINUTES APPL 78906 [place] MODALITY 6 DANETTE DANETTE 1/> AREAS ULTRASOUN D EA 15 MIN APPL 57665 [place] MODALITY 6 DANETTE DANETTE 1/> AREAS TRACTION MECHANICA L THERAPEUT 57955 [place] IC PX 1/> 6 DANETTE DANETTE AREAS EACH 15 MIN EXERCISES APPL 54748 [place] MODALITY 6 DANTETE DANETTE 1/> AREAS ELEC STIMJ UNATTENDE D CHIROPRAC 62653 [place] TIC 6 DANETTE DANETTE MANIPULAT [place] SPINAL 1-2 REGIONS CHIROPRAC 47782 [place] TIC 6 DANETTE DANETTE MANIPULAT [place] SPINAL 1-2 REGIONS APPL 59429 [place] MODALITY 6 DANETTE DANETTE 1/> AREAS ELEC STIMJ UNATTENDE D APPL 34643 [place] MODALITY 6 DANETTE DANETTE 1/> AREAS TRACTION MECHANICA L APPL 11113 [place] MODALITY 6 DANETTE DANETTE 1/> AREAS ULTRASOUN D EA 15 MIN APPLICATI 75424 [place] ON 6 DANETTE DANETTE MODALITY 1/> AREAS HOT/COLD PACKS MANUAL 00813 [place] THERAPY 6 DANETTE DANETTE TQS 1/> REGIONS EACH 15 MINUTES CHIROPRAC 08095 [place] TIC 6 DANETTE DANETTE MANIPLTV TX EXTRASPIN AL 1/> REGION CHIROPRAC 04828 [place] TIC 6 DANETTE DANETTE MANIPLTV TX EXTRASPIN AL 1/> REGION MANUAL 47888 [place] THERAPY 6 DANETTE TQS 1/> CHIROPRAC REGIONS TIC CENTE EACH 15 MINUTES APPL 88612 [place] MODALITY 6 DANETTE 1/> AREAS CHIROPRAC TIC CENTE ULTRASOUN D EA 15 MIN APPLICATI 24743 [place] ON 6 MODALITY CHIROPRAC CHIROPRAC 1/> AREAS TIC CENTE TIC CENTE HOT/COLD PACKS APPL 17504 [place] MODALITY 6 DANETTE 1/> AREAS CHIROPRAC TRACTION TIC CENTE MECHANICA L APPL 15992 [place] MODALITY 6 DANETTE 1/> AREAS CHIROPRAC ELEC TIC CENTE STIMJ UNATTENDE D APPL 72862 [place] MODALITY 6 DANETTE DANETTE 1/> AREAS ELEC STIMJ UNATTENDE D APPLICATI 80436 [place] ON 6 DANETTE DANETTE MODALITY 1/> AREAS HOT/COLD PACKS APPL 65396 [place] MODALITY 6 DANETTE DANETTE 1/> AREAS ULTRASOUN D EA 15 MIN CHIROPRAC 87084 [place] TIC 6 DANETTE DANETTE MANIPULAT [place] SPINAL 3-4 REGIONS MANUAL 57977 [place] THERAPY 6 DANETTE DANETTE TQS 1/> REGIONS EACH [address] LUMBAR 65163 [facility] [place] SPINE 6 RADIOLOGY LD IV ALL W/O CONTRAST MATERIAL CTA ABDL 27296 [facility] [place] AORTA&BI 6 RADIOLOGY LD IV ALL ILIOFEM W/CONTRAS T&POSTP DRUG SCR G0434 COMBINED COMBINED NOT 6 PHYSICIAN PHYSICIAN CHROMATOG S LA S LA RAPHIC; ANY NUMBER PT ENC DRUG TST G0477 COMBINED COMBINED PRESUMP;C 6 PHYSICIAN PHYSICIAN PBL BEING S LA S LA READ DC OPT OBV ONLY ECG 56914 PARTHA MOE JR ROUTINE 6 [facility] CENTER W/LEAST P 12 LDS I&R ONLY INJECTION [id number] NICOLASA BALDWIN 6 DILMA DILMA CEFTRIAXO NE SODIUM PER 250 MG HEPB 15221 [facility] ADULT 3 HLTH DEPT HLTH DEPT DOSE KHANG KHANG SCHEDULE FOR IM USE DIAGNOSTI G0204 [facility] Humphries 6 [facility] MAMMOGRAP INC INC HY INCL CAD WHEN PERF; BILAT SMR PRIM 38191 [facility] SRC WET 5 [facility] DEPT NFCT AGT KHANG KHANG IADNA 13961 [facility] CHLAMYDIA [facility] DEPT TRACHOMAT KHANG KHANG IS AMPLIFIED PROBE TQ WET Q0111 [facility] CHRISTIAN [facility] INCL PREP [facility] DEPT [facility] DEPT VAGINAL KHANG KHANG CERV/SKIN SPECIMENS PH BODY 03102 [facility] FLUID NOT [facility] DEPT ELSEWHERE KHANG KHANG SPECIFIED IADNA 14653 [facility] NEISSERIA 5 [facility] DEPT [facility] DEPT GONORRHOE KHANG KHANG AE AMPLIFIED PROBE TQ URNLS DIP 58111 [facility] 5 [facility] STICK/TAB [facility] DEPT [facility] DEPT LET RGNT [facility] NON-AUTO W/O MICRSCP AMINES 50926 [facility] VAGINAL [facility] DEPT QUALITATI KHANG KHANG VE ALL Q0112 [facility] POTASSIUM [facility] DEPT HYDROX[place] [address] [place] [facility] ALL ABDOMEN & 5 MEDICAL PELVIS [...] DIAGNOSTI G0204 [facility] Humphries 4 [facility] MAMMOGRAP INC INC HY INCL CAD WHEN PERF; BILAT OPHTH 52903 [facility] 4 XM&EVAL COMPRHNSV ESTAB PT 1/> POLYSOM 52856 [facility] 6/>YRS 1 Y Y SLEEP 4/> [place] [address] [facility] CHAVIS INFUSION 1 [facility] THERAPY/P INC INC ROPHYLAXI S /DX 1ST TO 1 HR COMPREHEN 30394 [facility] CHAVIS SIVE 1 [facility] [place] [address] DIANA DAVIDSON ABDOMEN & 1 MEDICAL GEORGE PELVIS IMAGING [place] [address] PAR[facility] CHAVIS INFUSION 1 [facility] THER INC INC PROPH ADDL SEQUENTIA L TO 1 HR 3D 74364 [facility] CHAVIS RENDERING 1 [facility] INC INC W/INTERP& POSTPROC DIFF WORK STATION BLOOD 32786 [facility] CHAVIS OCCULT 1 [facility] PEROXIDAS INC INC E ACTV QUAL FECES 1-3 SPEC URNLS DIP 56195 [facility] CHAVIS 1 [facility] STICK/TAB INC INC [place] [address] PAR[facility] CHAVIS CLOSTRIDI 1 [facility] UM INC INC DIFFICILE TOXIN CUL BACT 75740 PAR[facility] CHAVIS STOOL 1 [facility] AEROBIC INC INC ISOL SALMONELL A&SHIGELL BLOOD 58970 PAR[facility] CHAVIS COUNT 1 [facility] COMPLETE INC INC AUTO&AUTO DIFRNTL WBC CARBON 61319 [place] DEMPSE[place] MONOXIDE 1 MEDICAL JAM DIFFW/CAP SERV FOUNDATIO BRNCDILAT 89847 [place] ROSE[place] RSPSE 1 MEDICAL JAM SPMTRY SERV PRE&POST- FOUNDATIO BRNCDILAT ADMN FUNCTIONA 86955 PAR[facility] CHAVIS L 1 [facility] RESIDUAL INC INC CAPACITY OR RESIDUAL VOLUME DETER 16922 [place] ROSELY[place] MALDISTRI 1 MEDICAL JAM BJ OF SERV INSPIRED FOUNDATIO GAS N WSHOT CURVE DETER 68777 PAR[facility]A CHAVIS AIRWY 1 [facility] CLOSING INC INC VOL 1 [place] [address] PAR[facility]A CHAVIS THYROID 1 [facility] STIMULATI INC INC NG HORMONE TSH OPHTH 84148 LEANA SCIFRES MEDICAL 0 VISION ANG XM&EVAL COMPRHNSV ESTAB PT 1/> ARTHROCEN 92718 [facility] LINDY MONTILLAIS 0 PHYSICIAN JAM ASPIR&/IN S GROUP J SMALL JT/BURSA W/O US INJECTION J0696 NICOLASA BALDWIN 0 DILMA DILMA CEFTRIAXO NE SODIUM PER 250 MG LEVEL III 23883 PATHOLOGY PATHOLOGY SURG 8 & & PATHOLOGY CYTOLOGY CYTOLOGY LAB LAB GROSS&JAZMYN ROSCOPIC EXAM EXC B9 06556 JOSIAH JOHNSTONSTAD LESION 8 , REFUGIO , REFUGIO MRGN XCP SK TG T/A/L 1.1-2.0 CM BLOOD 87204 [facility] CHAVIS COUNT 8 [facility] COMPLETE INC INC AUTO&AUTO DIFRNTL WBC ECG 52285 [facility] CHAVIS ROUTINE 8 [facility] ECG INC INC W/LEAST 12 LDS TRCG ONLY W/O I&R FIBRIN 16166 PAR[facility] CHAVIS DGRADJ 8 MEM [facility] PRODUCTS INC INC D-DIMER QUAL/SEMI FILIBERTO BASIC 84649 PAR[facility]A CHAVIS METABOLIC 8 [facility] PANEL INC INC CALCIUM TOTAL CREATINE 07463 PAR[facility] CHAVIS KINASE 8 [facility] TOTAL INC INC CREATINE 41863 PAR[facility]A CHAVIS KINASE MB 8 [facility] FRACTION INC INC ONLY RADIOLOGI 05229 Kristel POST EXAM 8 MEDICAL [place] CHEST 2 IMAGING VIEWS ASSOCIATE FRONTAL&[place] [address] PARTHA CHAVIS TROPONIN 8 [facility] QUANTITAT INC INC NORBERTO PRESSURIZ 34076 PAR[facility]A CHAVIS ED/NONPRE 8 [facility] SSURIZED INC INC INHALATIO N TREATMENT RADEX 47162 [facility] CALCANEUS 8 MEDICAL [place] MINIMUM IMAGING 2 VIEWS ASSOCIATE S APPLICATI 09205 ELANA KRUGER ON SHORT 8 NATIONAL ISMAEL LEG CORPORATI O SPLINT ON CALF FOOT COMPREHEN 12697 PAR[facility] CHAVIS SIVE 8 [facility] METABOLIC INC INC PANEL SEDIMENTA 95914 PAR[facility]A CHAVIS TION RATE 8 [facility] RBC INC INC NON-AUTOM ATED BLOOD 30996 [facility] CHAVIS COUNT 8 [facility] COMPLETE INC INC AUTO&AUTO DIFRNTL WBC RHEUMATOI 72280 PARTHA CHAVIS D FACTOR 8 [facility]OS[facility] QUANTITAT INC INC NORBERTO LIPID 73377 [facility] CHAVIS PANEL 8 [facility] INC INC ANTINUCLE 18798 PAR[facility] CHAVIS AR 8 [facility] ANTIBODIE INC INC S AG INCISION 40400 SCHULSTEDDI SCHULAD & 8 , REFUGIO , REFUGIO DRAINAGE ABSCESS SIMPLE/SI NGLE RADEX ABD 66349 ITA ALEJANDRA 8 MEDICAL JACKIE P AQT ABD IMAGING W/S/E/D ASSOCIATE VIEWS 1 S VIEW CH ADMN SET A7003 YOUR YOUR SM VOL 8 PHARMACY [facility] PNEUMAT NEBULIZR DISPBL NEBULIZER E0570 LB ASHER WITH 8 HOME MED HOME MED COMPRESSO EQUIP. EQUIP. R [facility] O[facility] 02905 GT DEL REAL, MEDICAL 8 JENNI A JENNI A XM&EVAL COMPRE NEW PT 1/> VST LIPID 95141 COMBINED COMBINED PANEL 8 PHYSICIAN PHYSICIAN S LAB S LAB GLUC BLD 06284 DHS/CO PARTHA GLUC MNTR 8 [facility] CLEARED BANK ACCT FDA SPEC HOME USE RADEX 61006 [place] GRIFF[place], G ANKLE 8 RADIOLOGY T COMPLETE MINIMUM 3 VIEWS BLOOD 86977 DHS[facility]CO [facility]A COUNT 8 [facility] N BANK ACCT GLUC BLD 63704 DHS/CO [facility] GLUC MNTR [facility] CLEARED BANK ACCT FDA SPEC HOME USE CYTP 80697 DHS/CO PARTHA CERV/VAG [facility] LAYER BANK ACCT PREP MNL SCREEN DUP-SCAN 11417 [facility] XTR VEINS 8 N N [facility] L/LIMITED STUDY Encounters Encounter Start End Date Code Location Performer Type Date OFFICE 77025 NICOLASA BALDWIN OUTPATIDONNA 7 7 T VISIT 15 MINUTES HOSPITAL [facility] - 7 7 [facility] OUTPATIEN [facility] PARTHA - 6 6 [facility] OUTPATIEN [facility] EMERGENCY 38207 VERONICA LIU 6 6 PHYSICIAN MAHAMED S PLLC T VISIT HIGH/URGE NT SEVERITY EMERGENCY 74349 [facility]A 6 6 [facility] T VISIT MODERATE SEVERITY OFFICE 92717 NICOLASA TOBIAS 6 6 T VISIT 15 MINUTES HOSPITAL PARTHA - 6 6 [facility] OUTPATIEN [facility] PART[facility] - 6 6 [facility]PATIEN [facility] PARTHA - 6 6 [facility] OUTPATIEN [facility] OFFICE 80173 [facility] SHOJAEI-M OUTPATIEN 6 6 PHYSICIAN OGERIKA T NEW 45 S GROUP JAL MINUTES PERIODIC 53903 [facility] PREVENTIV 6 6 PHYSICIAN E MED EST S GROUP PATIENT 40-64YRS [facility] PARTHA - 6 6 [facility] OUTPATIEN [facility] PARTHA - 6 6 [facility] OUTPATIEN [facility] OFFICE 66518 [facility] OUTPATIEN 6 6 PHYSICIAN T NEW 30 S GROUP MINUTES OFFICE 71022 [facility] 6 6 DANETTE DANETTE T NEW 30 MINUTES EMERGENCY 82129 [facility] 6 6 SONIDO VISIT EMERGENCY HIGH PHYSI SEVERITY& THREAT FUNCJ OFFICE 47391 NICOLASA CASTROPATIDONNA 6 6 DILMA DILMA T VISIT 15 MINUTES EMERGENCY 48364 VERONICA LIU 6 6 PHYSICIAN JAZMYN IRBY S PLLC T VISIT MODERATE SEVERITY EMERGENCY 19805 [facility] 6 PHYSICIAN TANNER VISIT S, PLLC HIGH SEVERITY& THREAT FUNCJ OFFICE 86205 NICOLASA BALDWIN OUTPATIEN 6 6 DILMA DILMA T VISIT 15 MINUTES EMERGENCY 52620 VERONICA LIU 6 6 PHYSICIAN JAZMYN DEPARTMEN S, PLLC T VISIT MODERATE SEVERITY OFFICE 57009 NICOLASA BALDWIN OUTPATIEN 6 6 DILMA DILMA T VISIT 15 MINUTES OFFICE 82941 [facility] [address] [facility] T VISIT 5 TH DEPT [facility] DEPT MINUT[facility] PARTHA - 6 6 [facility] OUTPATIEN INC T OFFICE 21331 [facility] [address] [facility] T VISIT [facility] DEPT [facility] DEPT 15 KHANG [facility] MINUTES PERIODIC 99742 [facility]VENTIV [address] [facility] E MED EST HLTH DEPT [facility] DEPT PATIENT [facility] 40-64YRS OFFICE 12435 PARTHA OLIVAS JR OUTPATIEN [address] MINUTES P OFFICE 40687 NICOLASA BALDWIN OUTPATIEN 5 5 DILMA DILMA T VISIT 15 MINUTES OFFICE 68864 NICOLASA BALDWIN OUTPATIEN 5 5 DILMA DILMA T VISIT 15 MINUTES OFFICE 34052 [facility] FLORY TOD OUTPATIEN 5 5 PHYSICIAN T VISIT S GROUP 10 MINUTES OFFICE 85353 [facility] FLORY TOD CONSULTAT 5 5 PHYSICIAN ION S GROUP NEW/[facility] PATIENT 40 MIN OFFICE 22145 NICOLASA BALDWIN OUTPATIEN 5 5 DILMA DILMA T VISIT 15 MINUTES HOSPITAL PARTHA - 4 4 [facility] OUTPATIEN INC T OFFICE 48874 [facility] [address] [facility] T VISIT [facility] DEPT [facility] DEPT 10 KHANG KHANG MINUTES HOSPITAL UNIVERSIT - 1 1 [facility] OFFICE 14711 [facility] 1 MEDICAL JAM T VISIT SERV 15 FOUNDATIO MINUTES OFFICE 66967 NICOLASA BALDWIN OUTPATIEN 1 1 DILMA DILMA T VISIT 15 MINUTES EMERGENCY 14947 SELWYN LIU DEPT 1 1 EMERGENCY JAZMYN VISIT SERVICES HIGH SEVERITY& THREAT FUNCJ EMERGENCY 24703 PARTHA 1 1 [facility] T VISIT HIGH/URGE NT [facility] PARTHA - 1 1 [facility] - 1 1 [facility] PARTHA - 1 1 [facility] OFFICE 18434 NICOLASA BALDWIN OUTPATIEN 0 0 DILMA DILMA T VISIT 15 MINUTES OFFICE 11857 MARY JO MAHARAJ ALLRAN JR CONSULTAT 0 0 GIANCARLO GIANCARLO ION NEW/ESTAB PATIENT 40 MIN OFFICE 09381 NICOLASA BALDWIN OUTPATIEN 0 0 DILMA DILMA T VISIT 15 MINUTES OFFICE 84378 [facility] LINDY OUTPATIEN 0 0 PHYSICIAN JAM T VISIT S GROUP 25 MINUTES OFFICE 18452 NICOLASA BALDWIN OUTPATIEN 0 0 DILMA DILMA T VISIT 15 MINUTES OFFICE 66580 NICOLASA BALDWIN OUTPATIEN 0 0 DILMA DILMA T VISIT 15 MINUTES OFFICE 09475 NICOLASA ABLDWIN OUTPATIEN 0 0 DILMA DILMA T VISIT 15 MINUTES OFFICE 28277 NICOLASA BALDWIN OUTPATIEN 0 0 DILMA DILMA T VISIT 15 MINUTES OFFICE 67361 JOSIAH RAHMAN CONSULTAT 8 8 , REFUGIO , REFUGIO ION NEW/ESTAB PATIENT 30 MIN EMERGENCY 36175 PAR[facility]A 8 8 [facility] V[facility] LIMITED/M INOR PROB EMERGENCY 13219 ELANA KRUGER, [address] [facility] T VISIT ON MODERATE SEVERITY HOSPITAL PARTHA - 8 8 [facility] OUTPATIEN INC T EMERGENCY 17000 PARTHA 8 8 [facility]ISIT HIGH/URGE NT SEVERITY HOSPITAL PARTHA - 8 8 [facility] OUTPATIEN INC T HOSPITAL PARTHA - 8 8 [facility]PAT[facility]EN [facility] T OFFICE 46438 [facility] 8 8 [facility] Pelon BLAKE T VISIT ASSOCIATE 15 S MINUTES HOSPITAL PARTHA - 8 8 [facility] OUTPATIEN INC T EMERGENCY 61530 PAR[facility]A 8 8 [facility] T VISIT LIMITED/M INOR PROB EMERGENCY 58272 ELANA KRUGER, [address] [facility] O T VISIT ON MODERATE SEVERITY HOSPITAL PARTHA - 8 8 [facility]PAT[facility]EN [facility] T OFFICE 50020 DHEERAJ ESQUEDA OUTPATIEN 8 8 DON R DON R T VISIT 15 MINUTES OFFICE 69378 JOSIAH RAHMAN CONSULTAT 8 8 , REFUGIO HUFF NEW/ESTAB PATIENT 15 MIN OFFICE 07949 DHEERAJ ESQUEDA OUTPATIEN 8 8 DON R DON R T NEW [address]ES [address] [facility], 8 8 [facility] INC MODERATE SEVERITY EMERGENCY 29421 PARTHA 8 8 [facility] T VISIT LOW/MODER SEVERITY HOSPITAL PARTHA - 8 8 [facility] OUTPATIEN INC T OFFICE 44805 [facility]CO [facility] OUTPATIDONNA 8 8 [facility] T [facility]ISIT [facility] 15 BANK ACCT MINUTES EMERGENCY 51068 [facility] 8 8 [facility] MODERATE SEVERITY PERIODIC 98887 DHS/CO PARTHA PREVENTIV 8 8 [facility] HEALTH E MED EST [facility] PATIENT BANK ACCT 18-39 YRS [facility] [place] [address] 8 N [facility]
--- OUTSIDE RECORDS SUMMARY | 2017-03-28 13:57 | External Medical Summary Rpt ---
Demographics Preferred Language Wolof Marital Status Unknown Confucianism Affiliation Unknown Race Unknown Ethnic Group Unknown Author Author , [facility] Address Unknown Phone Immunization Unable to retrieve immunization data due to connection failure with Immunization Registry. Please try again later.
--- OUTSIDE RECORDS SUMMARY | 2017-03-28 13:57 | External Medical Summary Rpt ---
Demographics Preferred Language Czech Marital Status Unknown Religion Affiliation Unknown Race Unknown Ethnic Group Unknown Author Author , [facility] Address Unknown Phone Immunization Unable to retrieve immunization data due to connection failure with Immunization Registry. Please try again later.
--- OUTSIDE RECORDS SUMMARY | 2017-03-28 13:57 | External Medical Summary Rpt ---
Author Author [facility], [facility] [employer] Organization [facility] [employer] Address Unknown Phone Unavailable Results CHLAMYDIA AND GONORRHEA TESTING Observa Value Referen Units Interpr Notes Date tion ce etation Range COLLECT RUDDY No No No No Aug 8 OR JIMENEZ, informa informa informa informa 2015 LINE CLEARANCE FOREMAN tion in tion in tion in tion in 2:15 PM source source source source data data data data ETHNICI WHITE, No No No No Aug 09 TY NON-HIS informa informa informa informa 2015 PANIC tion in tion in tion in tion in 2:15 PM source source source source data data data data KIT 01-31-2 No No No No Aug 09 EXPIRAT 016 informa informa informa informa 2015 ION tion in tion in tion in tion in 2:15 PM DATE source source source source data data data data SYMPTOM YES No No No No Aug 8 S informa informa informa informa 2015 tion in tion in tion in tion in 2:15 PM source source source source data data data data REASON REVISIT No No No No Aug 09 FOR /ANNUAL informa informa informa informa 2015 REQUEST FAMILY tion in tion in tion in tion in 2:15 PM source source source source PLANNIN data data data data G VISIT SPECIME URINE No No No No Aug 09 N informa informa informa informa 2015 SOURCE tion in tion in tion in tion in 2:15 PM source source source source data data data data PREGNAN NO No No No No Aug 09 T informa informa informa informa 2015 tion in tion in tion in tion in 2:15 PM source source source source data data data data CHART [id number] No No No No Aug 09 NUMBER 88 informa informa informa informa 2015 tion in tion in tion in tion in 2:15 PM source source source source data data data data Chlamyd NEGATIV No No No NEGATIV Aug 8 ia E informa informa informa E 2015 trachom tion in tion in tion in RESULT= 2:15 PM atis source source source WITHIN rRNA data data data NORMAL [Presen ce] in LIMITSP Unspeci OSITIVE fied specime RESULT= n by Probe & ABNORMA target LEQUIVO ZAYNAB amplifi RESULT= cation method INDETER MINATEU NSATISF ACTORY RESULT= INVALID Neisser NEGATIV No No No NEGATIV Aug 09 ia E informa informa informa E 2015 gonorrh tion in tion in tion in RESULT= 2:15 PM oeae source source source WITHIN rRNA data data data NORMAL [Presen ce] in LIMITSP Unspeci OSITIVE fied specime RESULT= n by Probe & ABNORMA target LEQUIVO ZAYNAB amplifi RESULT= cation method INDETER MINATEU NSATISF ACTORY RESULT= INVALID THE APTIMA COMBO 2 ASSAY IS NOT INTENDE D FOR THE EVALUAT ION OF SUSPECT EDSEXUA L ABUSE OR FOR OTHER MEDICO- LEGAL INDICAT IONS. FOR THOSE PATIENT S FORWHOM A FALSE POSITIV E RESULT MAY HAVE ADVERSE PSYCHO- SOCIAL IMPACT, [facility] MMENDS RETESTI NG.\.br \This report contain s patient informa tion that must be protect ed in accorda nce with the Health Insuran ce Portabi lity and Account ability Act. CHLAMYDIA AND GONORRHEA TESTING Observa Value Referen Units Interpr Notes Date tion ce etation Range COLLECT RUDDY No No No No Aug 09 OR JIMENEZ, informa informa informa informa 2015 LINE CLEARANCE FOREMAN tion in tion in tion in tion in 2:15 PM source source source source data data data data ETHNICI WHITE, No No No No Aug 09 TY NON-HIS informa informa informa informa 2015 PANIC tion in tion in tion in tion in 2:15 PM source source source source data data data data KIT 01-31-2 No No No No Aug 09 EXPIRAT 016 informa informa informa informa 2015 ION tion in tion in tion in tion in 2:15 PM DATE source source source source data data data data SYMPTOM YES No No No No Aug 09 S informa informa informa informa 2015 tion in tion in tion in tion in 2:15 PM source source source source data data data data REASON REVISIT No No No No Aug 09 FOR /ANNUAL informa informa informa informa 2015 REQUEST FAMILY tion in tion in tion in tion in 2:15 PM source source source source PLANNIN data data data data G VISIT SPECIME URINE No No No No Aug 09 N informa informa informa informa 2015 SOURCE tion in tion in tion in tion in 2:15 PM source source source source data data data data PREGNAN NO No No No No Aug 09 T informa informa informa informa 2015 tion in tion in tion in tion in 2:15 PM source source source source data data data data CHART [id number] No No No No Aug 09 NUMBER 88 informa informa informa informa 2015 tion in tion in tion in tion in 2:15 PM source source source source data data data data Chlamyd Pending No No No No Aug 09 ia informa informa informa informa 2015 trachom tion in tion in tion in tion in 2:15 PM atis source source source source rRNA data data data data [Presen ce] in Unspeci fied specime n by Probe & target amplifi cation method Neisser Pending No No No \.br\Aug 09 ia informa informa informa is 2015 gonorrh tion in tion in tion in report 2:15 PM oeae source source source contain rRNA data data data s [Presen patient ce] in Unspeci informa fied tion specime that n by must be Probe & target protect ed in amplifi accorda cation nce method with the Health Insuran ce Portabi lity and Account ability Act.
--- OUTSIDE RECORDS SUMMARY | 2017-03-28 13:57 | External Medical Summary Rpt ---
Author Author [facility], [facility] [employer] Address Unknown Phone Unavailable Results CHLAMYDIA AND GONORRHEA TESTING Observa Value Referen Units Interpr Notes Date tion ce etation Range COLLECT RUDDY No No No No Aug 8 OR JIMENEZ, informa informa informa informa 2015 CMM INSPECTOR tion in tion in tion in tion [...] source source data data data data CHART [id number] No No No No Aug 09 NUMBER [...] MAY HAVE ADVERSE PSYCHO- SOCIAL IMPACT, [facility] MMENDS RETESTI NG.\.br \This report contain s patient informa tion that must be protect ed in accorda nce with the Health Insuran ce Portabi lity and Account ability Act. CHLAMYDIA AND GONORRHEA TESTING Observa Value Referen Units Interpr Notes Date tion ce etation Range COLLECT RUDDY No No No No Aug 09 OR JIMENEZ, informa informa informa informa 2015 CMM INSPECTOR tion in tion in tion in tion [...] source source data data data data CHART [id number] No No No No Aug 09 NUMBER [...]
--- NOTE | 2017-03-28 14:11 | Urgent Treatment Center Report ---
History of Present Issue Date/Time Seen by Provider 03/28/17 1400 Visit Reason Pt arrived:Walked Presenting Problem:PT STATES THAT SHE HAD A HYSTERECTOMY IN JUNE AND THAT SHE HAS HAD PROBLEMS WITH HER BOWELS SINCE THE SURGERY. PT STATES THAT SHE HAS NOT BEEN ABLE TO HAVE A BOWEL MOVEMENT SINCE SATURDAY (03-23-17). PT STATED SHE IS ALSO HAVING BACK PAIN AND ABDOMINAL TENDERNESS. Location if Accident: Onset of symptoms date/time:/ or onset unknown for:MEDICAL HX UNKNOWN Have you (or family members/close friends) recently traveled outside the [place]? N If Yes, where/when: Have you had exposure to infectious disease within the past month? TB? Other? Specify: c/o constipation. hx of constipation x years. Typical BM pattern every 2 days w/ occasional use of laxatives. However since hysterectomy 9 months ago, has had to take laxatives nearly every night in order to have a BM every 2 days. Initially reported last BM as Saturday, 5 days ago but then reports 3-4 loose BMs this morning. Reports they were "decent size but not what I would expect for not going in 5 days". Woke up this morning w/ lower abdomen cramping and general malaise. "I knew today would be the day I pooped when I woke up. I didn't make it to work due to the multiple episodes so I called in". Abdominal cramping eased after BMs. Reports she went to sleep soon after the episodes of stooling, approx 5am this morning, and woke only approx 30 minutes before coming to clinic. "That is a full nights sleep. Not sure why I would sleep that long." Denies fever. Feels "achy" across low back. Urinary hesitancy x days. Denies change urine color or odor. Intermittent dysuria. Hasn't taken or tried anything for symptoms other than nightly laxatives. Reports "drinking that bottle or using an enema never works. Drinking epsom salt and water always does but that makes me cramp and since I am already crampy, I didn't want to do that." Source patient Exam Limitations no limitations ALLERGIES Coded Allergies: Corticosteroids (Glucocorticoids) (08/28/16) codeine (08/28/16) methylprednisolone (08/28/16) Home Medications Reported Medications Buspirone Hcl (Buspar 10MG) 10 MG PO TID #90 Polyethylene Glycol 3350 (Miralax) 17 GM PO DAILY Docusate Sodium (Colace 100MG Cap) 100 MG PO DAILY Albuterol (Albuterol-Hfa Inhaler) 1 PUFF IH PRN PRN BREATHING History Medical History General CAD? No Angina: Yes [place]: No Hypertension? No Hyperlipidemia? No CHF? No DVT? Yes PE? No COPD? No Asthma? No Anemia? No GERD? No Gastric ulcers? No GI Bleed? No Hernia? No Thyroid Problems? No Hypothyroidism? No CVA? No Seizures? No Diabetes? No Insulin Dependent: No Insulin Pump: No Home FSBS? No Renal Insuffiency? No UTI? Yes Stones? No BPH? No GB Disease: No Nephritic Syndrome? No Asplenia? No Hepatitis? No Sickle Cell Disease? No Arthritis? No Migraines? No Cataracts? No Glaucoma? No MRSA? No HIV? No TB? No Anxiety? Yes Depression? Yes Cancer? No More? No Immunization HX DT/Tetanus 1-4 YRS Flu Refused Pneumonia Refuses Surgical Hx Previous Surgery?Y L LEG STENTS X 4 TOTAL R LEG PLASTIC SURGERY TUBAL WISDOM TEETH RUDI Family History Family HX Diabetes Yes CAD Yes Hypertension Yes Hyperlipidemia Yes Cancer Yes TB No Social History Smoking Hx Smoker: Current Every Day Smoker Tobacco: Yes Type Cigarettes Packs/day 1 1/2 - 2 Packs Alcohol Alcohol: No Review of Systems All Other Systems Reviewed and Negative Constitutional see HPI, denies chills, denies diaphoresis, denies fever ENT see HPI. denies: throat swelling. Respiratory denies cough, denies shortness of breath Cardiovascular denies chest pain, denies edema, denies palpitations, denies syncope Gastrointestinal see HPI Genitourinary see HPI. denies: discharge, hematuria, pain. Musculoskeletal back pain (no worse with movement), denies joint pain, denies muscle pain, denies muscle stiffness Skin denies change in color, denies lesions, denies rash Psychiatric/Neurological denies headache, denies other (dizziness) Physical Exam Vital Signs Vital Signs Date Time Temp Pulse Resp B/P Pulse O2 O2 Flow FiO2 Ox Delivery Rate 03/28 1350 98.4 79 18 129/77 99 General Appearance normal appearance, no apparent distress Eye Exam - bilateral eye normal exam Ear, Nose, Throat normal pharynx Neck non-tender, supple Respiratory Status No: respiratory distress, productive cough, non productive cough. Lung Sounds anterior: lungs clear. posterior: lungs clear. bilateral: lungs clear. Cardiovascular regular rate/rhythm, no peripheral edema, no murmur Peripheral Pulses Pulses normal Yes Gastrointestinal soft, no organomegaly, no pulsatile mass, abnormal bowel sounds (hyperactive [id number]), no guarding, no rebound, tenderness (minimal RLQ), mild suprapubic tenderness, no bladder distention, urine w/ strong odor, cloudy Back normal inspection, no CVA tenderness, no vertebral tenderness, gait normal, mild tenderness bilateral lumbar regions Extremities non-tender, normal range of motion, normal inspection Strength 5 Lower Ext (L), 5 Lower Ext (R) Neurologic alert, oriented x 3 Mental status normal mood/affect Skin normal color, warm/dry Lymphatic no adenopathy Medical Decision Making LABS/Meds/Orders Pt receiving controlled substance in ED? No Results/Orders Laboratory Tests 03/28/17 1420: Sodium 139, Potassium 4.0, Chloride 106, Carbon Dioxide 27, BUN 6 L, Creatinine 0.8, Estimated Creat Clear 121, Estimated GFR (MDRD) 78, Glucose 95, Calcium 8.8 , Total Bilirubin 0.6, AST 11 L, ALT 17, Alkaline Phosphatase 80, Total Protein 7.0, Albumin 3.5, Globulin 3.5 H, Albumin/Globulin Ratio 1.0 L, Amylase 51, Lipase 63 L, WBC 6.2, RBC 4.64, Hgb 14.4, Hct 44.8, MCV 96.6, RDW 12.7, Plt Count 197, MPV 7.9, Gran % 56.4, Gran # 3.5, Lymphocytes % 35.5, Monocytes % 5.9 , Eosinophils % 1.8, Basophils % 0.4, Lymphocytes # 2.2, Monocytes # 0.4, Eosinophils # 0.1, Basophils # 0.0, PUBS MCHC 32.1, MCH 31.1 03/28/17 1410: Urine Color OTHER, Urine Appearance Cloudy, Urine pH 7.0, Ur Specific [place] 1.020, Urine Protein 1+ H, Urine Ketones NEGATIVE, Urine Blood TRACE H, Urine Nitrate POSITIVE H, Urine Bilirubin NEGATIVE, Urine Urobilinogen 0.2, Ur Leukocyte Esterase TRACE H, Urine Glucose NEGATIVE Current Medication Orders Sig/Anh Start time Last Medication Dose Route Stop Time Status Admin Sodium Chloride 10 ML PRN PRN 03/28 1415 AC IV 03/29 1410 Orders Procedure Date/time Status CULTURE, URINE 03/28 1530 Active IV SALINE LOCK 03/28 1410 Active [facility] URINE DIPSTICK 03/28 1410 Complete LIPASE 03/28 1410 Complete COMPLETE METABOLIC PANEL 03/28 141 Complete CBC WITH AUTO DIFF 03/28 141 Complete AMYLASE 03/28 141 Complete XRAY/CT/US XRAY/CT/US XRAY abdomen XR interpretation by reviewed by me (w/ Dr. Cruz, ER ), discussed w/ radiologist (read report) Xray Results no acute finding. Consult MD Physician Consult Consult/PCP ELOY iVnes MD Time Called 1515 Reason Pt. Condition Comments Rvwd symptoms, exam, results. Agrees w/ POC. Does not suggest any additional treatment or testing at this time. Progress [facility] Progress Notes 1 Date 03/28/17 Time 1410 Comment Daughter, sergei Dsouza. updated on POC. [facility] Progress Notes 2 Date 03/28/17 Time 1450 Comment Up to attempt u/a. Daughter is returning to work in Dr. Oconnor's office. Asked to be notified at [phone] with any concerns or once results are available [facility] Progress Notes 3 Date 03/28/17 Time 1536 Comment POC rvwd w/ patient, significant other and daughter. Departure Departure Time of Disposition 1531 Disposition DC Home or Self Care(routine) Clinical Impression Primary Impression: UTI (urinary tract infection) Qualifiers: Urinary tract infection type: site unspecified Hematuria presence: with hematuria Qualified Code: N39.0 - Urinary tract infection, site not specified Secondary Impressions: History of constipation Condition STABLE Referrals Renetta Abraham (Family) * Be SURE to follow up anytime for new or worsening symptoms, if no improvement in 48 hours AND in 10-14 days to repeat UA and ensure infection resolved and blood no longer present. Patient Instructions DI for Constipation, DI for Hematuria, DI for Urinary Tract Infection (UTI) Additional Instructions * increase fluids, Water and NOT soda or tea * Start antibiotic immediately and be sure to take as ordered for the FULL length of time although you should start to see improvement over the next 48 hours. * pyridium as needed. Remember this will turn your urine ORANGE, this is normal but will stain whatever it gets on * You should not need the pyridium longer than 48 hours. If so, follow up with primary care to review urine culture and ensure antibiotic is adequate * Be SURE to follow up anytime for new or worsening symptoms, if no improvement in 48 hours AND in 10-14 days to repeat UA and ensure infection resolved and blood no longer present. * Be sure to let your PCP (or whoever you follow up with) know we sent urine culture so they can request records and ensure you are on the appropriate antibiotic if you are not getting better or getting worse!!! Daily laxative use is NOT recommended or safe. STOP daily laxative use. Increase water and fiber as well as exercise. Stool softners twice a day and Use laxatives only as needed. Discharge Counseling Counseled pt/family regarding diagnosis, test results, medications/RX, home care, follow up needs Prescriptions Current Visit Scripts Ciprofloxacin HCl (Cipro 500MG TAB) 500 MG PO BID #14 TAB Docusate Sodium (Colace 100MG Cap) 100 MG PO BID #60 CAP Phenazopyridine HCl (Pyridium) 200 MG PO TIDP PRN dysuria #6 TAB Comments pt declined bactrim. upsets stomach. at 1535
--- NOTE | 2017-03-28 14:11 | Urgent Treatment Center Report ---
History of Present Issue Date/Time Seen by Provider 03/28/17 1400 Visit Reason Pt arrived:Walked Presenting Problem:PT STATES THAT SHE HAD A HYSTERECTOMY IN JUNE AND THAT SHE HAS HAD PROBLEMS WITH HER BOWELS SINCE THE SURGERY. PT STATES THAT SHE HAS NOT BEEN ABLE TO HAVE A BOWEL MOVEMENT SINCE SATURDAY (03-23-17). PT STATED SHE IS ALSO HAVING BACK PAIN AND ABDOMINAL TENDERNESS. Location if Accident: Onset of symptoms date/time:/ or onset unknown for:MEDICAL HX UNKNOWN Have you (or family members/close friends) recently traveled outside the [place]? N If Yes, where/when: Have you had exposure to infectious disease within the past month? TB? Other? Specify: c/o constipation. hx of constipation x years. Typical BM pattern every 2 days w/ occasional use of laxatives. However since hysterectomy 9 months ago, has had to take laxatives nearly every night in order to have a BM every 2 days. Initially reported last BM as Saturday, 5 days ago but then reports 3-4 loose BMs this morning. Reports they were "decent size but not what I would expect for not going in 5 days". Woke up this morning w/ lower abdomen cramping and general malaise. "I knew today would be the day I pooped when I woke up. I didn't make it to work due to the multiple episodes so I called in". Abdominal cramping eased after BMs. Reports she went to sleep soon after the episodes of stooling, approx 5am this morning, and woke only approx 30 minutes before coming to clinic. "That is a full nights sleep. Not sure why I would sleep that long." Denies fever. Feels "achy" across low back. Urinary hesitancy x days. Denies change urine color or odor. Intermittent dysuria. Hasn't taken or tried anything for symptoms other than nightly laxatives. Reports "drinking that bottle or using an enema never works. Drinking epsom salt and water always does but that makes me cramp and since I am already crampy, I didn't want to do that." Source patient Exam Limitations no limitations ALLERGIES Coded Allergies: Corticosteroids (Glucocorticoids) (08/28/16) codeine (08/28/16) methylprednisolone (08/28/16) Home Medications Reported Medications Buspirone Hcl (Buspar 10MG) 10 MG PO TID #90 Polyethylene Glycol 3350 (Miralax) 17 GM PO DAILY Docusate Sodium (Colace 100MG Cap) 100 MG PO DAILY Albuterol (Albuterol-Hfa Inhaler) 1 PUFF IH PRN PRN BREATHING History Medical History General CAD? No Angina: Yes [place]: No Hypertension? No Hyperlipidemia? No CHF? No DVT? Yes PE? No COPD? No Asthma? No Anemia? No GERD? No Gastric ulcers? No GI Bleed? No Hernia? No Thyroid Problems? No Hypothyroidism? No CVA? No Seizures? No Diabetes? No Insulin Dependent: No Insulin Pump: No Home FSBS? No Renal Insuffiency? No UTI? Yes Stones? No BPH? No GB Disease: No Nephritic Syndrome? No Asplenia? No Hepatitis? No Sickle Cell Disease? No Arthritis? No Migraines? No Cataracts? No Glaucoma? No MRSA? No HIV? No TB? No Anxiety? Yes Depression? Yes Cancer? No More? No Immunization HX DT/Tetanus 1-4 YRS Flu Refused Pneumonia Refuses Surgical Hx Previous Surgery?Y L LEG STENTS X 4 TOTAL R LEG PLASTIC SURGERY TUBAL WISDOM TEETH RUID Family History Family HX Diabetes Yes CAD Yes Hypertension Yes Hyperlipidemia Yes Cancer Yes TB No Social History Smoking Hx Smoker: Current Every Day Smoker Tobacco: Yes Type Cigarettes Packs/day 1 1/2 - 2 Packs Alcohol Alcohol: No Review of Systems All Other Systems Reviewed and Negative Constitutional see HPI, denies chills, denies diaphoresis, denies fever ENT see HPI. denies: throat swelling. Respiratory denies cough, denies shortness of breath Cardiovascular denies chest pain, denies edema, denies palpitations, denies syncope Gastrointestinal see HPI Genitourinary see HPI. denies: discharge, hematuria, pain. Musculoskeletal back pain (no worse with movement), denies joint pain, denies muscle pain, denies muscle stiffness Skin denies change in color, denies lesions, denies rash Psychiatric/Neurological denies headache, denies other (dizziness) Physical Exam Vital Signs Vital Signs Date Time Temp Pulse Resp B/P Pulse O2 O2 Flow FiO2 Ox Delivery Rate 03/28 1350 98.4 79 18 129/77 99 General Appearance normal appearance, no apparent distress Eye Exam - bilateral eye normal exam Ear, Nose, Throat normal pharynx Neck non-tender, supple Respiratory Status No: respiratory distress, productive cough, non productive cough. Lung Sounds anterior: lungs clear. posterior: lungs clear. bilateral: lungs clear. Cardiovascular regular rate/rhythm, no peripheral edema, no murmur Peripheral Pulses Pulses normal Yes Gastrointestinal soft, no organomegaly, no pulsatile mass, abnormal bowel sounds (hyperactive [id number]), no guarding, no rebound, tenderness (minimal RLQ), mild suprapubic tenderness, no bladder distention, urine w/ strong odor, cloudy Back normal inspection, no CVA tenderness, no vertebral tenderness, gait normal, mild tenderness bilateral lumbar regions Extremities non-tender, normal range of motion, normal inspection Strength 5 Lower Ext (L), 5 Lower Ext (R) Neurologic alert, oriented x 3 Mental status normal mood/affect Skin normal color, warm/dry Lymphatic no adenopathy Medical Decision Making LABS/Meds/Orders Pt receiving controlled substance in ED? No Results/Orders Laboratory Tests 03/28/17 1420: Sodium 139, Potassium 4.0, Chloride 106, Carbon Dioxide 27, BUN 6 L, Creatinine 0.8, Estimated Creat Clear 121, Estimated GFR (MDRD) 78, Glucose 95, Calcium 8.8 , Total Bilirubin 0.6, AST 11 L, ALT 17, Alkaline Phosphatase 80, Total Protein 7.0, Albumin 3.5, Globulin 3.5 H, Albumin/Globulin Ratio 1.0 L, Amylase 51, Lipase 63 L, WBC 6.2, RBC 4.64, Hgb 14.4, Hct 44.8, MCV 96.6, RDW 12.7, Plt Count 197, MPV 7.9, Gran % 56.4, Gran # 3.5, Lymphocytes % 35.5, Monocytes % 5.9 , Eosinophils % 1.8, Basophils % 0.4, Lymphocytes # 2.2, Monocytes # 0.4, Eosinophils # 0.1, Basophils # 0.0, PUBS MCHC 32.1, MCH 31.1 03/28/17 1410: Urine Color OTHER, Urine Appearance Cloudy, Urine pH 7.0, Ur Specific [place] 1.020, Urine Protein 1+ H, Urine Ketones NEGATIVE, Urine Blood TRACE H, Urine Nitrate POSITIVE H, Urine Bilirubin NEGATIVE, Urine Urobilinogen 0.2, Ur Leukocyte Esterase TRACE H, Urine Glucose NEGATIVE Current Medication Orders Sig/Anh Start time Last Medication Dose Route Stop Time Status Admin Sodium Chloride 10 ML PRN PRN 03/28 1415 AC IV 03/29 1410 Orders Procedure Date/time Status CULTURE, URINE 03/28 1530 Active IV SALINE LOCK 03/28 1410 Active [facility] URINE DIPSTICK 03/28 1410 Complete LIPASE 03/28 1410 Complete COMPLETE METABOLIC PANEL 03/28 141 Complete CBC WITH AUTO DIFF 03/28 141 Complete AMYLASE 03/28 141 Complete XRAY/CT/US XRAY/CT/US XRAY abdomen XR interpretation by reviewed by me (w/ Dr. Crzu, ER ), discussed w/ radiologist (read report) Xray Results no acute finding. Consult MD Physician Consult Consult/PCP ELOY Vines MD Time Called 1515 Reason Pt. Condition Comments Rvwd symptoms, exam, results. Agrees w/ POC. Does not suggest any additional treatment or testing at this time. Progress [facility] Progress Notes 1 Date 03/28/17 Time 1410 Comment Daughter, sergei Dsouza. updated on POC. [facility] Progress Notes 2 Date 03/28/17 Time 1450 Comment Up to attempt u/a. Daughter is returning to work in Dr. Oconnor's office. Asked to be notified at [phone] with any concerns or once results are available [facility] Progress Notes 3 Date 03/28/17 Time 1536 Comment POC rvwd w/ patient, significant other and daughter. Departure Departure Time of Disposition 1531 Disposition DC Home or Self Care(routine) Clinical Impression Primary Impression: UTI (urinary tract infection) Qualifiers: Urinary tract infection type: site unspecified Hematuria presence: with hematuria Qualified Code: N39.0 - Urinary tract infection, site not specified Secondary Impressions: History of constipation Condition STABLE Referrals Renetta Abraham (Family) * Be SURE to follow up anytime for new or worsening symptoms, if no improvement in 48 hours AND in 10-14 days to repeat UA and ensure infection resolved and blood no longer present. Patient Instructions DI for Constipation, DI for Hematuria, DI for Urinary Tract Infection (UTI) Additional Instructions * increase fluids, Water and NOT soda or tea * Start antibiotic immediately and be sure to take as ordered for the FULL length of time although you should start to see improvement over the next 48 hours. * pyridium as needed. Remember this will turn your urine ORANGE, this is normal but will stain whatever it gets on * You should not need the pyridium longer than 48 hours. If so, follow up with primary care to review urine culture and ensure antibiotic is adequate * Be SURE to follow up anytime for new or worsening symptoms, if no improvement in 48 hours AND in 10-14 days to repeat UA and ensure infection resolved and blood no longer present. * Be sure to let your PCP (or whoever you follow up with) know we sent urine culture so they can request records and ensure you are on the appropriate antibiotic if you are not getting better or getting worse!!! Daily laxative use is NOT recommended or safe. STOP daily laxative use. Increase water and fiber as well as exercise. Stool softners twice a day and Use laxatives only as needed. Discharge Counseling Counseled pt/family regarding diagnosis, test results, medications/RX, home care, follow up needs Prescriptions Current Visit Scripts Ciprofloxacin HCl (Cipro 500MG TAB) 500 MG PO BID #14 TAB Docusate Sodium (Colace 100MG Cap) 100 MG PO BID #60 CAP Phenazopyridine HCl (Pyridium) 200 MG PO TIDP PRN dysuria #6 TAB Comments pt declined bactrim. upsets stomach. at 1530
[2017-03-28 14:30] LABS: HEMOGLOBIN 14.4 g/dL (12.2-16.2); LYMPH # 2.2 K/mm3 (0.7-4.5); LYMPH % 35.5 % (10-50.0)
--- NOTE | 2017-03-28 14:55 | RADIOLOGY REPORT PS360 ---
KUB (SINGLE VIEW) HISTORY: abd pain RLQ, hx constipation, diarrhea this AM ORDERING PHYSICIAN: ANEL LEON APRN PATIENT AGE: 46 years COMPARISON: None FINDINGS: The bowel gas pattern is unremarkable. No obvious obstruction.. No abnormal calcifications are evident. No obvious renal or ureteral calculi.. No acute bony anomalies evident. Left iliac artery stent is present. Which is present in the pelvis. IMPRESSION: No acute finding
[2017-03-28 14:57] LABS: URINE BILIRUBIN - DIPSTICK NEGATIVE (NEG); URINE BLOOD TRACE (NEG)
[2017-03-28] MEDS ORDERED: CIPRO 500MG TA500 MG PO (15:35)
[2017-03-28] MEDS ORDERED: COLACE GENERIC100 MG PO (15:35)
[2017-03-28] MEDS ORDERED: PYRIDIUM200 M2 PO (15:35)
[2017-03-28 15:37] VITALS: BP 129/77
== END 2017-03-28 15:47 | disposition home or self-care (01) ==
LOC: UTC 13:28
PROVIDERS: Nurse Practitioner Family
DX: N39.0 Urinary tract infection, site not specified (principal); Z72.0 Tobacco use; K59.00 Constipation, unspecified

== ENCOUNTER 2017-06-10 10:01 | Emergency (ER) | payer OTHER ==
[~2017-06-10] VITALS: Ht 175.3 cm; Wt 83.0 kg
[~2017-06-10 10:01] MED LIST changes: +PYRIDIUM200 M2 PO
[2017-06-10] MEDS ORDERED: ALPRAZOLAM2 MG PO (10:32)
[2017-06-10] MEDS ORDERED: KEFLEX 500MG.500 MG PO (10:33)
[2017-06-10 10:46] LABS: LYMPH # 2.2 K/mm3 (0.7-4.5); LYMPH % 33.9 % (10-50.0)
--- NOTE | 2017-06-10 10:48 | Emergency Room Report ---
History of Present Illness Time Seen by 102Ambar Presenting Problem in Triage Pt arrived:Walked Presenting Problem:PT SENT FROM [facility], PT REPORTS TROUBLE URINATING X4 DAYS, PT REPORTS R SIDED LOWER BACK PAIN. 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 N Clinical Suspician of Infection? N Mental Status: 1 - Regular (Normal Baseline) Sepsis Risk:Low Sepsis Risk Have you (or family members/close friends) recently traveled outside the [place]? N If Yes, where/when: Have you had exposure to infectious disease within the past month? N TB? Other? 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 However, she has episodes of intermittent sharp right flank pain. No hematuria. No vomiting. Has hx of lower lumbar pain but no acute neurological sx , no recent chiropractic manipulation, and pain is different today than chronic lumbar pain. Hx hysterectomy. ALLERGIES Coded Allergies: Corticosteroids (Glucocorticoids) (08/28/16) codeine (08/28/16) methylprednisolone (08/28/16) Home Medications Active Scripts Docusate Sodium (Colace 100MG Cap) 100 MG PO BID #60 CAP Prov: 03/28/17 Reported Medications Alprazolam 1 MG PO TID #60 CEPHALEXIN (Keflex 500MG Capsule) 500 MG PO BID Albuterol (Albuterol-Hfa Inhaler) 1 PUFF IH PRN PRN BREATHING History Medical History General CAD? No Angina: Yes RI: No Hypertension? No Hyperlipidemia? No CHF? No DVT? Yes PE? No COPD? No Asthma? No Anemia? No GERD? No Gastric ulcers? No GI Bleed? No Hernia? No Thyroid Problems? No Hypothyroidism? No CVA? No Seizures? No Diabetes? No Insulin Dependent: No Insulin Pump: No Home FSBS? No Renal Insuffiency? No End Stage Renal Disease? No UTI? Yes Stones? No BPH? No GB Disease: No Nephritic Syndrome? No Asplenia? No Hepatitis? No Sickle Cell Disease? No Arthritis? No Migraines? No Cataracts? No Glaucoma? No MRSA? No HIV? No TB? No Anxiety? Yes Depression? Yes Cancer? No More? No Immunization Hx DT/Tetanus 1-4 YRS Flu Refused Pneumonia Refuses Surgical Hx Previous Surgery?Y L LEG STENTS X 4 TOTAL R LEG PLASTIC SURGERY TUBAL WISDOM TEETH RUDI DISEASE AND INSECT CONTROL BOSS Hx LMP N/A Family History Family Hx Diabetes Yes CAD Yes Hypertension Yes Hyperlipidemia Yes Cancer Yes TB No Social History Smoking Hx Smoker: Current Every Day Smoker Tobacco: Yes Type Cigarettes Packs/day 1 1/2 - 2 Packs Alcohol Alcohol: No Review of Systems All Other Systems Reviewed and Negative Constitutional see HPI Genitourinary see HPI. Musculoskeletal see HPI Physical Exam Vital Signs Vital Signs Date Time Temp Pulse Resp B/P Pulse O2 O2 Flow FiO2 Ox Delivery Rate 06/10 1108 15 06/10 1028 98.0 76 14 129/79 99 06/10 1016 98.0 76 14 129/79 99 General Appearance normal appearance, WD/WN, no apparent distress Eye Exam - bilateral eye normal exam, bilateral eye PERRL, bilateral eye EOMI Neck normal inspection, non-tender, supple, full range of motion Respiratory Status Yes: trachea midline, chest symmetrical, non tender chest. No: respiratory distress, tender on palpation, use of accessory muscles, pain on inspiration, pain on expiration, productive cough, non productive cough. Lung Sounds bilateral: normal breath sounds, lungs clear. Cardiovascular normal exam, regular rate/rhythm, no peripheral edema, no gallop, no JVD, no murmur, no rub, normal peripheral pulses Gastrointestinal normal bowel sounds, normal exam, non tender, soft, no organomegaly, no pulsatile mass, no guarding, no rebound Back no vertebral tenderness, bowel/bladder continent, CVA tenderness (R), strt leg raising(L)-NML, strt leg raising(R)-NML Strength 5 Upper Ext (L), 5 Upper Ext (R), 5 Lower Ext (L), 5 Lower Ext (R) Neurologic alert, normal exam, no motor/sensory deficits, oriented x 3 Glascow Coma Scale Glascow Coma Scale Response Value EYE response: 4 Spontaneously 4 MOTOR response: 6 OBEYS 6 VERBAL response: 5 Oriented & Converses 5 Total 15 Reflexes Reflexes normal Yes DTR 2+ ankle (R), 2+ ankle (L) Skin intact, normal color, warm/dry Medical Decision Making LABS/Meds/Orders Pt receiving controlled substance in ED? No Results/Orders Laboratory Tests 06/10/17 1045: Urine Color YELLOW, Urine Appearance CLEAR, Urine pH 6.5, Ur Specific [place] <= 1.005, Urine Protein NEGATIVE, Urine Ketones NEGATIVE, Urine Blood NEGATIVE, Urine Nitrate NEGATIVE, Urine Bilirubin NEGATIVE, Urine Urobilinogen 0.2, Ur Leukocyte Esterase NEGATIVE, Urine RBC NONE, Urine WBC NONE, Ur Squamous Epith Cells 10-20, Urine Bacteria 1+, Urine Glucose NEGATIVE 06/10/17 1035: Sodium 139, Potassium 4.4, Chloride 104, Carbon Dioxide 31, BUN 9, Creatinine 0.7, Estimated Creat Clear 133, Estimated GFR (MDRD) 90, Glucose 88, Calcium 8.9 , Total Bilirubin 0.5, AST 11 L, ALT 15, Alkaline Phosphatase 84, Total Protein 7.6, Albumin 3.9, Globulin 3.7 H, Albumin/Globulin Ratio 1.1, WBC 6.5, RBC 4.79 , Hgb 15.0, Hct 47.1 H, MCV 98.2 H, RDW 12.6, Plt Count 203, MPV 8.3, Gran % 58.6, Gran # 3.8, Lymphocytes % 33.9, Monocytes % 5.3, Eosinophils % 1.5, Basophils % 0.6, Lymphocytes # 2.2, Monocytes # 0.4, Eosinophils # 0.1, Basophils # 0.0, PUBS MCHC 31.9, MCH 31.3 H Current Medication Orders Sig/Anh Start time Last Medication Dose Route Stop Time Status Admin Ketorolac 30 MG ONCE ONE 06/10 1045 DC 06/10 Tromethamine IV 06/10 1046 1108 Sodium Chloride 10 ML PRN PRN 06/10 1045 AC IV 06/11 1034 Sodium Chloride 1,000 ML .Q4H 06/10 1045 AC 06/10 IV 06/10 1444 1106 Sodium Chloride 10 ML PRN PRN 06/10 1045 AC IV 06/11 1042 Ketorolac 0 .STK-MED ONE 10/09 1044 DC Tromethamine .ROUTE Sodium Chloride 1,000 ML .STK-MED ONE 06/10 1043 DC IV Orders Procedure Date/time Status DIET-NOTHING BY MOUTH 06/10 L Active CULTURE, URINE 06/[address] ABD/PELVIS REQ 06/10 103 Complete IV SALINE LOCK 06/10 1034 Active URINALYSIS/COMPLETE 06/10 103 Complete CBC WITH AUTO DIFF 06/10 103 Complete CHEM 12 PROFILE 06/10 103 Complete Progress ED Progress Notes Date 06/10/17 Time 1149 Comment Feeling much better s/p Toradol IV. No complaints at d/c. Departure Departure Time of Disposition 1149 Disposition DC Home or Self Care(routine) Clinical Impression Primary Impression: Right flank pain Secondary Impressions: Dysuria Ruled Out Impressions: Kidney stone Condition STABLE Referrals Luis Enrique BLANTON,Bk Borrego (Family) Patient Instructions DI for Flank Pain Additional Instructions Naproxen RX, see Eugonda in two to three days. Drink plenty of fluids. Discharge Counseling Counseled pt/family regarding diagnosis, test results, medications/RX, home care, follow up needs Prescriptions Current Visit Scripts NAPROXEN (NAPROXEN 500MG TAB) 500 MG PO BIDP PRN pain #20 TAB ED Critical Care Critical Care No at 1153
[2017-06-10 11:01] LABS: URINE BILIRUBIN - DIPSTICK NEGATIVE (NEG); URINE BLOOD NEGATIVE (NEG)
--- NOTE | 2017-06-10 11:28 | RADIOLOGY REPORT PS360 ---
CT ABD PELVIS W/O CONTRAST CLINICAL INDICATION: DIFFICULTY WITH URINATION; R LOWER BACK PAIN, right flank pain ORDERING PHYSICIAN: Cheyenne Shrestha MD PATIENT AGE: 46 years COMPARISON: 08/28/2016 TECHNIQUE: Axial images obtained with sagittal and coronal reformats. PROCEDURE: Oral Contrast: None IV Contrast: None . FINDINGS: The lung bases are clear. The liver, spleen, left adrenal gland, and pancreas and gallbladder have an unremarkable unenhanced CT appearance. There is a 2.2 cm hypodense nodule of the right adrenal gland measuring as low as -16 Hounsfield units consistent with an adenoma not significantly changed. No renal mass or hydronephrosis. No ureteral calculi or renal calculi. No ureteral dilatation. Unremarkable appendix. No intestinal obstruction or free air. Prior hysterectomy. No evidence of diverticulitis. There is a stent within the left iliac vein. No acute bony anomalies. IMPRESSION: 1. No acute intra-abdominal pelvic pathology. 2. No change right adrenal adenoma. 3. No obstructing ureteral calculi
[2017-06-10] MEDS ORDERED: NAPROXEN SODIU500 MG PO (11:51)
[2017-06-10 12:01] VITALS: BP 103/62
--- OUTSIDE RECORDS SUMMARY | 2017-06-15 01:54 | External Medical Summary Rpt | CCD ---
Demographics Home Phone Preferred Language Montenegrin Marital Status Unknown Mormonism Affiliation Unknown Race Unknown Ethnic Group Unknown Author Author , [facility] Organization [facility] Address Unknown Phone [email or web address] Care Team Providers Care Manager Psychology Name Role Phone [facility] Unavailable Unavailable [place], [facility] [place] Dudley MD, Unavailable Unavailable Greta Dudley MD [facility] Unavailable Unavailable [id number] # [phone], [facility] [id number] # [phone] Purpose Continuity of Care Document - 04-28-2010 through 2016 Problems Code Diagnosis DOS Provider Status 305.1 305.1 05-15-2013 [facility] TOBACCO USE [facility] 466.0 466.0 ACUTE 05-15-2013 [facility] BRONCHITIS [facility] 511.0 511.0 05-15-2013 [facility] PLEURISY [facility] W/O EFFUS [facility] OR TB V14.8 V14.8 05-15-2013 [facility] HX-DRUG [facility] ALLERGY [facility] Hospital K52.9 NONINFECTIV E GASTROENTER ITIS AND COLITIS, [...] ia de te s n re d KE 00 09 0 No TO 40 [...] W 03 93 8 # 03 93 53 01 01 8. 2 RI 86 GA Ac 74 -0 -0 00 TE 56 IN ti 60 8- 8- 0 45 EY ve 11 20 20 AI 11 11 11 D PA 0 PH CH AR AE MA L CY S 03 93 8 # 03 93 ME 50 01 01 21 7 RI 86 GA Ac TR 11 -0 -0 .0 TE 56 IN ti ON 10 8 00 44 EY ve ID 33 20 20 AI AZ 40 11 11 D PA OL 1 PH CH E AR AE 50 MA L 0 CY S MG 03 TA 93 BL 8 ET # 03 93 CI 65 01 01 14 7 RI 86 GA Ac NJ 86 -0 -0 .0 TE 56 IN ti OF 20 8- 8- 00 43 EY ve LO 07 20 20 AI XA 70 11 11 D PA CI 1 PH CH N AR AE HC MA L L CY S 50 0 03 MG 93 8 TA # B 03 93 NA 00 01 01 5 [...] 03 ET 93 8 # 03 93 00 12 12 0 28 28 EA [...] W OF CY NT HI AN A 60 12 12 1 24 6 EA 20 AR Ac 25 -1 -[address] 44 NO ti 80 7- 7- 00 SI 35 LD ve 23 20 20 0 DE 91 10 10 RI 6 PH CH AR AR MA D CY W OF CY NT HI AN A DI 00 12 [...] CY NT TA HI B AN A AM 00 12 12 1 30 10 EA 20 AR Ac OX 78 -1 -[address] 44 NO ti IC 12 7- 7- 00 SI 33 LD ve IL 61 20 20 DE LI 30 10 10 RI N 5 PH CH 50 AR AR 0 MA D MG CY W CA OF PS UL CY E NT HI AN A CL 00 10 [...] 8 # 03 93 CL 00 10 10 5 [...] 80 6- 6- 00 71 LD ve NJ 01 20 20 AI AM 10 10 10 D RI 1 PH CH HB AR AR R MA D 40 CY W MG 03 93 TA 8 BL # ET 03 93 00 07 10 1 60 30 RI 84 SH Ac 18 -2 -0 .0 TE 33 RA ti 50 7- 2- 00 02 BE ve 61 20 20 AI RG 30 10 10 D 1 PH DA AR MA D CY 03 93 8 # 03 93 PE 00 09 09 [...] BL # ET 03 93 CL 00 06 09 2 90 30 RI 84 GI Ac ON 09 -1 -0 .0 TE 86 LL ti AZ 30 1- 5- 00 21 IA ve EP 83 20 20 AI M AM 30 10 10 D JA 1 1 PH I AR H MG MA CY TA BL 03 ET 93 8 # 03 93 NJ 00 09 09 1 18 8 RI 84 AR Ac OM 60 -0 -0 0. TE 86 NO ti ET 31 5- 5- 00 23 LD ve MERCADO 58 20 20 0 AI ZI 65 10 10 D RI NE 4 PH CH -D AR AR M MA D SY CY W RU P 03 93 8 # 03 93 PE 00 09 09 [...] TA 8 BL # ET 03 93 60 09 09 2 24 5 EA 18 AR Ac 25 -0 -[address] 94 NO ti 80 1- 1- 00 SI 84 LD ve 23 20 20 0 DE 91 10 10 RI 6 PH CH AR AR MA D CY W OF CY NT HI AN A CI 55 09 09 1 20 10 EA 18 AR Ac NJ 11 -0 -[address] 94 NO ti OF 10 1- 1- 00 SI 83 LD ve LO 12 20 20 DE XA 70 10 10 RI CI 5 PH CH N AR AR HC MA D L CY W 50 0 OF MG CY TA NT B HI AN A 59 09 09 11 8. 23 EA 18 AR Ac 31 -0 -[address] 94 NO ti 00 1- 1- 0 SI 81 LD ve 57 20 20 DE 92 10 10 RI 0 PH CH AR AR MA D CY W OF CY NT HI AN A CE 45 08 08 5 30 30 EA 18 AR Ac TI 80 -2 -[address] 87 NO ti RI 20 7- 7- 00 SI 71 LD ve ZI 91 20 20 DE NE 98 10 10 RI 7 PH CH HC AR AR L MA D 10 CY W MG OF TA CY BL NT ET HI AN A AGEURO 53 08 08 1 20 10 EA 18 AR Ac LF 74 -2 -[address] 87 NO ti AM 60 7- 7- 00 SI 70 LD ve ET 27 20 20 DE HO 20 10 10 RI XA 5 PH CH ZO AR AR LE MA D -T CY W MP OF DS CY TA NT BL HI ET AN A Vital Signs 05-15-2013 02:45 Name Value Interpretat [...] Order Detail nces retati t Range on Urinalysis macro (dipstick) panel in Urine (03-28-2017 14:10) Appeara Cloudy CLEAR complet nce of 017 ed Urine 14:10 Bilirub NEGATIV NEG complet in 017 E ed [Presen 14:10 ce] in Urine by Test strip Erythro TRACE NEG Abnorma complet cytes 017 l ed [Presen 14:10 ce] in Urine Color OTHER YELLOW complet of 017 ed Urine 14:10 Ketones NEGATIV NEG complet 017 E ed [Presen 14:10 ce] in Urine by Automat ed test strip Leukocy TRACE NEG Abnorma complet te 017 l ed esteras 14:10 e [Presen ce] in Urine by Automat ed test strip Nitrite POSITIV NEG Abnorma complet 017 E l ed [Presen 14:10 ce] in Urine by Test strip Urobili 0.2 NEG complet nogen 017 ed [Presen 14:10 ce] in Urine by Test strip CHLAMYDIA AND GONORRHEA TESTING (08-09-2015 14:15) Chlamyd [...] RUDDY complet OR 015 JIMENEZ, ed 14:15 BURR GRINDER ETHNICI WHITE, complet TY 015 NON-HIS ed 14:15 PANIC KIT complet EXPIRAT 015 016 ed ION 14:15 DATE SYMPTOM YES complet S 015 ed 14:15 REASON REVISIT complet FOR 015 /ANNUAL ed REQUEST 14:15 FAMILY PLANNIN G VISIT SPECIME URINE complet N 015 ed SOURCE 14:15 PREGNAN NO complet T 015 ed 14:15 CHART [id number] complet NUMBER 015 88 ed 14:15 Chlamyd [...] 013 mmoL/L ed SerPl-s 01:10 Cnc CO2 26 21.0-32 complet SerPl-s 013 mmoL/L .0 ed Cnc 01:10 Calcium 8.5 8.5-10. complet 013 mg/dL 1 ed SerPl-m 01:10 Cnc Prot 7.2 6.4-8.2 complet SerPl-m 013 gm/dL ed Cnc 01:10 Albumin 3.7 3.4-5.0 complet 013 gm/dL ed SerPl-m 01:10 Cnc Globuli 3.5 1.3-3.2 complet n 013 gm/dL ed Ser-mCn 01:10 c Albumin 1.1 UNK 1.1-1.8 complet /Glob 013 ed SerPl-m 01:10 Rto Bilirub 0.2 0.2-1.0 complet 013 mg/dL ed SerPl-m 01:10 Cnc AST 11 U/L 15-37 complet SerPl-c 013 ed Cnc 01:10 ALT 27 U/L 30-65 complet SerPl-c 013 ed [...] g/dL .2 ed c 01:10 Hct Fr 05-15-2 40.8 % 37.0-47 complet Bld 013 .0 ed 01:10 MCV RBC 05-15-2 95.2 fl 82.2-97 complet 013 .8 ed 01:10 MCH RBC 05-15-2 31.1 pg 27-31.2 complet Qn 013 ed Auto 01:10 MEAN 05-15-2 32.6 31.8-35 complet CORPUSC 013 g/dl .4 ed ULAR 01:10 HGB CONC RDW RBC 05-15-2 14.5 % 11.5-17 complet Auto 013 .5 ed 01:10 Platele --2 195 142-424 complet t Bld 013 K/mm3 ed Ql 01:10 Manual MEAN 05-15-2 7.9 fl 7.4-10. complet PLATELE 013 4 ed T 01:10 VOLUME Granulo -13-2 65.0 % 37.0-80 complet cytes 013 .0 ed Fr Bld 01:10 Auto LYMPH % -13-2 27.8 % 10-50.0 complet 013 ed 01:10 Monocyt -13-2 5.5 % 1.7-9.3 complet es Fr 013 ed Bld 01:10 Auto Eosinop -13-2 1.2 % 0.1-12. complet hil Fr 013 0 ed Bld 01:10 Auto Basophi -13-2 0.4 % 0.1-2.0 complet ls Fr 013 ed Bld 01:10 Auto Granulo 09-13-2 6.9 1.8-7.8 complet cytes # 013 K/mm3 ed Bld 01:10 Auto Lymphoc -13-2 2.9 0.7-4.5 complet ytes Fr 013 K/mm3 ed Bld 01:10 Auto Monocyt 09-13-2 0.6 0.1-1.0 complet es # 013 K/mm3 ed Bld 01:10 Auto Eosinop 09-13-2 0.1 0.0-0.4 complet hil # 013 K/mm3 ed Bld 01:10 Auto Basophi 09-13-2 0.0 0-0.2 complet ls # 013 K/MM3 ed Bld 01:10 Auto Encounters Encounter Start End Date Code Location Performer Type Date Emergency SIVAN Dudley MD (ER) 3 02:47 3 02:52 [facility]
--- OUTSIDE RECORDS SUMMARY | 2017-06-15 01:54 | External Medical Summary Rpt | CCD ---
Demographics Home Phone Preferred Language British Marital Status Unknown Buddhist Affiliation Unknown Race Unknown Ethnic Group Unknown Author Author , [facility] Organization [facility] Address Unknown Phone [email or web address] Care Team Providers Care Supervisor Irrigation Name Role Phone [facility] Unavailable Unavailable [place], [facility] [place] Dudley MD, Unavailable Unavailable Greta Dudley MD [facility] Unavailable Unavailable [id number] # [phone], [facility] [id number] # [phone] Purpose Continuity of Care Document - 04-28-2010 through 2016 Problems Code Diagnosis DOS Provider Status 305.1 305.1 05-15-2013 [place] TOBACCO USE [facility] 466.0 466.0 ACUTE 05-15-2013 [place] BRONCHITIS [facility] 511.0 511.0 05-15-2013 [place] PLEURISY [facility] W/O EFFUS [facility] OR TB V14.8 V14.8 05-15-2013 [place] HX-DRUG [facility] ALLERGY [facility] Hospital K52.9 NONINFECTIV E GASTROENTER [...] 20 20 AI 11 11 11 D MS 0 PH CH AR AE MA L CY S 03 93 8 # 03 93 ME 50 01 01 21 7 RI 86 GA Ac TR 11 -0 -0 .0 TE 56 IN ti ON 10 8 00 44 EY ve ID 33 20 20 AI AZ 40 11 11 D MS OL 1 PH CH E AR AE 50 MA L 0 CY S MG 03 TA 93 BL 8 ET # 03 93 CI 65 01 01 14 7 RI 86 GA Ac AZ 86 -0 -0 .0 TE 56 IN ti OF 20 8- 8- 00 43 EY ve LO 07 20 20 AI XA 70 11 11 D MS CI 1 PH CH N AR AE [...] 80 6- 6- 00 71 LD ve AZ 01 20 20 AI AM 10 10 [...] 03 ET 93 8 # 03 93 AZ 00 09 09 1 18 8 RI [...] 1 20 10 EA 18 AR Ac AZ 11 -0 -[address] 94 NO [...] CY BL NT ET HI AN A AGUERO 53 08 08 [...] RUDDY complet [place] 015 JIMENEZ, ed 14:15 SECURITY MANAGEMENT SPECIALIST ETHNICI WHITE, complet TY 015 NON-HIS ed 14:15 PANIC KIT complet EXPIRAT 015 016 ed ION 14:15 DATE SYMPTOM YES complet S 015 ed 14:15 REASON REVISIT complet FOR 015 /ANNUAL ed REQUEST 14:15 FAMILY PLANNIN G VISIT SPECIME URINE complet N 015 ed SOURCE 14:15 PREGNAN NO complet T 015 ed 14:15 CHART [id number] complet NUMBER 015 88 ed 14:15 Chlamyd [...] Dudley MD (ER) 3 02:47 3 02:52 [facility]
--- OUTSIDE RECORDS SUMMARY | 2017-06-15 01:55 | External Medical Summary Rpt | CCD ---
Author Author , SHANDRA SAAB Address Unknown Phone [email or web address] Immunization Name Date Rout CVX Reac Dose Comm Prov Is Faci e tion ent ider Refu lity Give sed n Tdap 05-1 115 999 Hist H149 No H149 , 3-20 oric Adso 14 al rbed Info rmat ion - Sour ce Unsp ecif ied
--- OUTSIDE RECORDS SUMMARY | 2017-06-15 01:55 | External Medical Summary Rpt | CCD ---
Demographics Preferred Language Albanian Marital Status Unknown Bahai Affiliation Unknown Race Unknown Ethnic Group Unknown Author Author , [facility] Address Unknown Phone [email or web address] Care Team Providers Care Primer Inspector Name Role Phone [facility] Unavailable Unavailable [place], [facility] [place] [facility] Unavailable Unavailable [id number] # [phone], [facility] [id number] # [phone] Purpose Continuity of Care Document - 04-28-2010 through 2016 Medications Na ND Rx Da Fi Fi Am Da Di Ph RX Ph St me C No te ll ll ou ys ag ar # ys at rm s nt no ma ic us Or Da si cy ia de te s n re d DI 00 01 01 1 60 15 [...] 20 AI XA 70 11 11 D AR CI 1 PH CH N AR AE HC MA L L CY S 50 0 03 MG 93 8 TA # B 03 93 ME 50 01 01 21 7 RI 86 GA Ac TR 11 -0 -0 .0 TE 56 IN ti ON 10 8- 8- 00 44 EY ve ID 33 20 20 AI AZ 40 11 11 D AR OL 1 PH CH E AR AE 50 MA L 0 CY S MG 03 TA 93 BL 8 ET # 03 93 53 01 01 8. 2 RI 86 GA Ac 74 -0 -0 00 TE 56 IN ti 60 8- 8- 0 45 EY ve 11 20 20 AI 11 11 11 D AR 0 PH CH AR AE MA L [...] ET 93 8 # 03 93 00 07 10 1 60 [...] TA 8 BL # ET 03 93 NJ 00 09 09 1 [...] AR Ac TI 80 -2 -2 .0 87 NO ti RI 20 7- 7- 00 SI 71 LD ve ZI 91 20 20 DE NE 98 10 10 RI 7 PH CH HC AR AR L MA D 10 CY W MG OF TA CY BL NT ET HI AN A
--- OUTSIDE RECORDS SUMMARY | 2017-06-15 01:55 | External Medical Summary Rpt | CCD ---
Author Author , SHANDRA SAAB Address Unknown Phone [email or web address] Immunization Name Date Rout CVX Reac Dose Comm Prov Is Faci e tion ent ider Refu lity Give sed n Tdap 05-1 115 999 Hist H149 No H149 , 3-20 oric Adso 14 al rbed Info rmat ion - Sour ce Unsp ecif ied
--- OUTSIDE RECORDS SUMMARY | 2017-06-15 01:55 | External Medical Summary Rpt | CCD ---
Demographics Preferred Language Icelandic Marital Status Unknown Scientology Affiliation Unknown Race Unknown Ethnic Group Unknown Author Author , [facility] S[facility] Address Unknown Phone [email or web address] Care Team Providers Care Vending Technician Name Role Phone [facility] Unavailable Unavailable [place], [facility] [place] [facility] Unavailable Unavailable [id number] # [phone], [facility] [id number] # [phone] Purpose Continuity of Care Document [...] 01 14 7 RI 86 GA Ac WI 86 -0 -0 .0 TE 56 IN ti OF 20 8- 8- 00 43 EY ve LO 07 20 20 AI XA 70 11 11 D CA CI 1 PH CH N AR AE HC MA L L CY S 50 0 03 MG 93 8 TA # B 03 93 ME 50 01 01 21 7 RI 86 GA Ac TR 11 -0 -0 .0 TE 56 IN ti ON 10 8- 8- 00 44 EY ve ID 33 20 20 AI AZ 40 11 11 D CA OL 1 PH CH E AR AE 50 MA L 0 CY S MG 03 TA 93 BL 8 ET # 03 93 53 01 01 8. 2 RI 86 GA Ac 74 -0 -0 00 TE 56 IN ti 60 8- 8- 0 45 EY ve 11 20 20 AI 11 11 11 D CA 0 PH CH AR AE MA L [...] 80 6- 6- 00 71 LD ve WI 01 20 20 AI AM 10 10 [...] TA 8 BL # ET 03 93 WI 00 09 09 1 18 8 RI [...] 1 20 10 EA 18 AR Ac WI 11 -0 -[address] 94 NO [...]
--- OUTSIDE RECORDS SUMMARY | 2017-06-15 01:56 | External Medical Summary Rpt ---
Author Author [facility], [facility] [employer] Organization [facility] [employer] Address Unknown Phone Unavailable Results Amylase [Enzymatic activity/volume] in Serum or Plasma Observa Value Referen Units Interpr Notes Date tion ce etation Range Amylase 25 - 115 U/L Normal No Mar 28 [Enzymati informati 2017 2:20 c on in PM activity/ source volume] data in Serum or Plasma Comprehensive metabolic 2000 panel in Serum or Plasma Observa Value Referen Units Interpr Notes Date tion ce etation Range Albumin/G 1.1 - 1.8 No Low No Mar 28 lobulin informati informati 2016 2:20 [Mass on in on in PM ratio] in source source Serum or data data Plasma Albumin 3.4 - 5.0 gm/dL Normal No Mar 28 [Mass/vol informati 2016 2:20 ume] in on in PM Serum or source Plasma data Alkaline 46 - 116 U/L Normal No Mar 28 phosphata informati 2016 2:20 se on in PM [Enzymati source c data activity/ volume] in Serum or Plasma Bilirubin 0.2 - 1.0 mg/dL Normal No Mar 28 .total informati 2016 2:20 [Mass/vol on in PM ume] in source Serum or data Plasma Urea 7 - 18 mg/dL Low No Mar 28 nitrogen informati 2016 2:20 [Mass/vol on in PM ume] in source Serum or data Plasma Calcium 8.5 - mg/dL Normal No Mar 28 [Mass/vol 10.1 informati 2016 2:20 ume] in on in PM Serum or source Plasma data Chloride 98 - 107 mmoL/L Normal No Mar 28 [Moles/vo informati 2016 2:20 lume] in on in PM Serum or source Plasma data Carbon 21.0 - mmoL/L Normal No Mar 28 dioxide, 32.0 informati 2017 2:20 total on in PM [Moles/vo source lume] in data Serum or Plasma Creatinin 0.55 - mg/dL Normal No Mar 28 e 1.02 informati 2017 2:20 [Mass/vol on in PM ume] in source Serum or data Plasma Creatinin 50 - 200 ML/MIN Normal No Mar 28 e renal informati 2016 2:20 clearance on in PM source predicted data by Cockcroft -Gault formula Estimated 59- ML/MIN No REFERENCE Mar 28 informati RANGE: 2017 2:20 glomerula on in >60 PM r source ML/MIN/1. filtratio data 73 SQUARE n rate METERSIf (GF this patient is -A merican, then multiply theresult by 1.210. Globulin 1.3 - 3.2 gm/dL High No Mar 28 [Mass/vol informati 2016 2:20 ume] in on in PM Serum source data Glucose 74 - 106 mg/dL Normal No Mar 28 [Mass/vol informati 2016 2:20 ume] in on in PM Serum or source Plasma data Potassium 3.5 - 5.1 mmoL/L Normal No Mar 282016 2:20 [Moles/vo on in PM lume] in source Serum or data Plasma Sodium 136 - 145 mmoL/L Normal No Mar 28 [Moles/vo informati 2016 2:20 lume] in on in PM Serum or source Plasma data Aspartate 15 - 37 U/L Low No Mar 28 inform2016 2:20 aminotran on in PM sferase source [Enzymati data c activity/ volume] in Serum or Plasma Alanine 12 - 78 U/L Normal No Mar 28 aminotran 2016 2:20 sferase on in PM [Enzymati source c data activity/ volume] in Serum or Plasma Protein 6.4 - 8.2 gm/dL Normal No Mar 28 [Mass/vol informati 2016 2:20 ume] in on in PM Serum or source Plasma data Lipase [Enzymatic activity/volume] in Serum or Plasma Observa Value Referen Units Interpr Notes Date tion etation Range Lipase 73 - 393 U/L Low No Mar 28 [Enzymati informati 2017 2:20 c on in PM activity/ source volume] data in Serum or Plasma CBC W Auto Differential panel in Blood Observa Value Referen Units Interpr Notes Date tion ce etation Range Basophils 0 - 0.2 K/MM3 Normal No Mar 28 inform2016 2:20 [#/volume on in PM ] in source Blood by data Automated count Basophils 0.1 - 2.0 % Normal No Adan 27 /100 informati 2016 2:20 leukocyte on in PM s in source Blood by data Automated count Eosinophi 0.0 - 0.4 K/mm3 Normal No Mar 28 ls informati 2016 2:20 [#/volume on in PM ] in source Blood by data Automated count Eosinophi 0.1 - % Normal No Mar 28 ls/100 12.0 informati 2016 2:20 leukocyte on in PM s in source Blood by data Automated count Granulocy 1.8 - 7.8 K/mm3 Normal No Mar 28 dwight informati 2016 2:20 [#/volume on in PM ] in source Blood by data Automated count Granulocy 37.0 - % Normal No Mar 28 dwight/100 80.0 informati 2016 2:20 leukocyte on in PM s in source Blood by data Automated count Hematocri 37.0 - % Normal No Mar 28 t [Volume 47.0 informati 2016 2:20 on in PM Fraction] source of Blood data Hemoglobi 12.2 - g/dL Normal No Mar 28 n 16.2 informati 2016 2:20 [Mass/vol on in PM ume] in source Blood data Lymphocyt 0.7 - 4.5 K/mm3 Normal No Mar 28 es informati 2016 2:20 [#/volume on in PM ] in source Unspecifi data ed specimen by Automated count Lymphocyt 10 - 50.0 % Normal No Mar 28 es informati 2016 2:20 [#/volume on in PM ] in source Unspecifi data ed specimen by Automated count Erythrocy 27 - 31.2 pg Normal No Mar 28 te mean informati 2016 2:20 corpuscul on in PM ar source hemoglobi data n [Entitic mass] Erythrocy 31.8 - g/dl Normal No Mar 28 te mean 35.4 informati 2016 2:20 corpuscul on in PM ar source hemoglobi data n concentra tion [Mass/vol ume] by Automated count Erythrocy 82.2 - fl Normal No Mar 28 te mean 97.8 informati 2016 2:20 corpuscul on in PM ar volume source [Entitic data volume] by Automated count Monocytes 0.1 - 1.0 K/mm3 Normal No Mar 28 informati 2016 2:20 [#/volume on in PM ] in source Blood by data Automated count Monocytes 1.7 - 9.3 % Normal No Adan 27 /100 informati 2016 2:20 leukocyte on in PM s in source Blood by data Automated count Platelet 7.4 - fl Normal No Mar 28 mean 10.4 informati 2016 2:20 volume on in PM [Entitic source volume] data in Blood by Automated count Platelets 142 - 424 K/mm3 Normal No Mar 28 informati 2016 2:20 [#/volume on in PM ] in source Blood data Erythrocy 4.2 - 5.4 M/mm3 Normal No Mar 28 dwight informati 2016 2:20 [#/volume on in PM ] in source Amniotic data fluid Erythrocy 11.5 - % Normal No Mar 28 te 17.5 informati 2016 2:20 distribut on in PM ion width source [Entitic data volume] by Automated count Leukocyte 4.8 - K/MM3 Normal No Mar 28 s 10.8 informati 2016 2:20 [#/volume on in PM ] in source Blood data Urinalysis macro (dipstick) panel in Urine Observa Value Referen Units Interpr Notes Date tion ce etation Range Appeara Cloudy CLEAR No No No Mar 28 nce of informa informa informa 2016 Urine tion in tion in tion in 2:10 PM source source source data data data Bilirub NEGATIV NEG No No No Mar 28 in E informa informa informa 2016 [Presen tion in tion in tion in 2:10 PM ce] in source source source Urine data data data by Test strip Erythro TRACE NEG No Abnorma No Mar 28 cytes informa l informa 2016 [Presen tion in tion in 2:10 PM ce] in source source Urine data data Color OTHER YELLOW No No No Mar 28 of informa informa informa 2017 Urine tion in tion in tion in 2:10 PM source source source data data data Glucose NEG No No No Mar 28 [Mass/vol informati informati informati 2017 2:10 ume] in on in on in on in PM Urine by source source source Test data data data strip Ketones NEGATIV NEG mg/dL No No Mar 28 E informa informa 2016 [Presen tion in tion in 2:10 PM ce] in source source Urine data data by Automat ed test strip pH of 5.0 - 8.5 No Normal No Mar 28 Urine informati informati 2016 2:10 on in on in PM source source data data Protein NEG mg/dL High No Mar 28 [Mass/vol informati 2017 2:10 ume] in on in PM Urine by source Automated data test strip Specific 1.005 - No Normal No Mar 28 gravity 1.030 informati informati 2017 2:10 of Urine on in on in PM source source data data Leukocy TRACE NEG No Abnorma No Mar 28 te informa l informa 2017 esteras tion in tion in 2:10 PM e source source [Presen data data ce] in Urine by Automat ed test strip Nitrite POSITIV NEG No Abnorma No Mar 28 E informa l informa 2016 [Presen tion in tion in 2:10 PM ce] in source source Urine data data by Test strip Urobili 0.2 NEG E.U./dL No No Mar 28 nogen informa informa 2016 [Presen tion in tion in 2:10 PM ce] in source source Urine data data by Test strip CHLAMYDIA AND GONORRHEA TESTING Observa Value Referen Units Interpr Notes Date tion ce etation Range COLLECT RUDDY No No No No Aug 09 OR JIMENEZ, informa informa informa informa 2015 [employer]UP tion in tion in tion in tion [...] source source data data data data CHART [id number] No No No No Aug 09 NUMBER 88 informa informa informa informa 2015 tion in tion in tion in tion in 2:15 PM source source source source data data data data Chlamyd NEGATIV No No No NEGATIV Aug 09 [...] MAY HAVE ADVERSE PSYCHO- SOCIAL IMPACT, [facility] NG.\.br \This report contain s patient informa tion that must be protect ed in accorda nce with the Health Insuran ce Portabi lity and Account ability Act. CHLAMYDIA AND GONORRHEA TESTING Observa Value Referen Units Interpr Notes Date tion ce etation Range COLLECT RUDDY No No No No Aug 09 OR JIMENEZ, informa informa informa informa 2015 C[employer] SYRUP tion in tion in tion in tion in 2:15 PM source source source source data data data data ETHNICI WHITE, No No No No Aug 09 TY NON-HIS informa informa informa informa 2015 PANIC tion in tion in tion in tion in 2:15 PM source source source source data data data data KIT -31-2 No No No No Aug 09 EXPIRAT [...] source source data data data data CHART [id number] No No No No Aug 09 NUMBER [...]
--- OUTSIDE RECORDS SUMMARY | 2017-06-15 01:56 | External Medical Summary Rpt ---
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
== END 2017-06-10 12:03 | disposition home or self-care (01) ==
LOC: UTC 10:01 → ER 10:10
PROVIDERS: Emergency Medicine
DX: R10.31 Right lower quadrant pain (principal); R30.0 Dysuria; F17.210 Nicotine dependence, cigarettes, uncomplicated; F41.8 Other specified anxiety disorders